=== PATIENT | male | born 1930 | race Caucasian/White ===

== ENCOUNTER 2018-08-13 12:44 | Inpatient (IN) | payer MEDICARE ==
[2018-08-13] MEDS ORDERED: ACETAMINOPHEN 325 MG TABLET PO ONE (13:04)
--- NOTE | 2018-08-13 13:23 | ER Document Report ---
ED Fall - General Chief Complaint: Fall Injury Stated Complaint: HIP PAIN Time Seen by Provider: 08/13/18 13:08 Mode of Arrival: Medic Information source: Patient, Relative Notes: 87-year-old male brought to the emergency department by EMS status post fall. Patient son accompanies him. Patient lives at home by himself. Home health visits a few times per week. The son goes over on the remaining days. He says that he went to check on his dad this morning and found him laying on his back in the bathroom. Patient states that he got out of bed and tripped and fell. He is moved himself on the ground while on his back into the bathroom. Patient was unable to lift himself up onto the toilet. He states that he was done on the ground for about an hour before his son came. He denies any head injury, loss of consciousness, neck pain. Patient states that he fell and landed on his elbows. He does have abrasions to his bilateral elbows. Patient complains of pain to the right hip. He is unable to flex or extend at the hip secondary to pain. Patient has full range of motion at the bilateral elbows. Patient son states that the patient has had issues with his balance for the last 2 years. His primary care physician has been aware of this and has worked him up. They initially thought that this was secondary to his peripheral neuropathy. Then they switched the patient's Lyrica to gabapentin thinking that maybe it was a drug side effect. Patient uses a walker to ambulate. Son states that he does not use it consistently. - HPI Occurred: This morning Where: Home Context: Lost balance Associated symptoms: Other - Right hip pain Location of injury/pain: Hip Quality of pain: Stabbing, Throbbing Severity: Moderate - Related data Allergies/Adverse Reactions: No Known Allergies Allergy (Unverified 08/13/18 13:06) Past Medical History - General Information source: Patient, Relative - Social History Smoking Status: Former Smoker Family History: Reviewed & Not Pertinent Review of Systems - Review of Systems Constitutional: No symptoms reported EENT: No symptoms reported Cardiovascular: No symptoms reported Respiratory: No symptoms reported Gastrointestinal: No symptoms reported Genitourinary: No symptoms reported Male Genitourinary: No symptoms reported Musculoskeletal: Joint pain Skin: Lesions Hematologic/Lymphatic: No symptoms reported Neurological/Psychological: No symptoms reported -: Yes All other systems reviewed and negative Physical Exam - Vital signs Vitals: Pulse Resp BP Pulse Ox 74 16 134/60 H 95 08/13/18 12:51 08/13/18 12:51 08/13/18 12:51 08/13/18 12:51 - Notes Notes: PHYSICAL EXAMINATION: GENERAL: Well-appearing, well-nourished and in no acute distress. HEAD: Atraumatic, normocephalic. EYES: Pupils equal round and reactive to light, extraocular movements intact, sclera anicteric, conjunctiva are normal. ENT: Nares patent, oropharynx clear without exudates. Moist mucous membranes. NECK: Normal range of motion, supple without lymphadenopathy. No cervical spine tenderness to palpation. LUNGS: Breath sounds clear to auscultation bilaterally and equal. No wheezes rales or rhonchi. HEART: Regular rate and rhythm without murmurs ABDOMEN: Soft, nontender, nondistended abdomen. No guarding, no rebound. No masses appreciated. Musculoskeletal: Normal range of motion, no pitting or edema. No cyanosis. Right hip tenderness to palpation. 2+ dorsalis pedis and posterior tibialis pulses. No knee, tib/fib tenderness to palpation. NEUROLOGICAL: Cranial nerves grossly intact. Normal speech, normal gait. Normal sensory, motor exams PSYCH: Normal mood, normal affect. SKIN: Warm, Dry, skin avulsion to bilateral elbows. Course - Re-evaluation Re-evalutation: 08/13/18 18:24 Patient has a right intertrochanteric fracture. Head and neck CT do not show an acute process. Labs obtained and are normal. EKG done and does not show any ST segment elevation. I contacted Dr. Ballard. He states that he will stay on the case as a consult. I spoke with the hospitalist who is agreeable with admitting the patient. - Vital Signs Vital signs: Temp Pulse Resp BP Pulse Ox 97.4 F 73 19 137/68 H 99 08/13/18 17:47 08/13/18 17:47 08/13/18 17:47 08/13/18 17:47 08/13/18 17:47 - Laboratory Result Diagrams: 08/13/18 13:59 08/13/18 13:59 Laboratory results interpreted by me: 08/13/18 08/13/18 13:59 13:59 RDW 16.2 H Plt Count 119 L Seg Neutrophils % 81.8 H Lymphocytes % 10.6 L Sodium 134.9 L Alkaline Phosphatase 167 H Albumin 3.4 L Discharge - Discharge Clinical Impression: Intertrochanteric fracture of right hip Condition: Stable Disposition: ADMITTED OBSERVATION Admitting Provider: Hospitalist Unit Admitted: Surgical Floor
--- NOTE | 2018-08-13 14:01 | RADIOLOGY REPORT (SQ) ---
EXAM DESCRIPTION: HIP RIGHT AP/LATERAL; FEMUR RIGHT COMPLETED DATE/TIME: 08/13/2018 1:50 pm REASON FOR STUDY: bed 2 hip pain s/p fall; tenderness to palpation COMPARISON: None. FINDINGS: Two views right hip: Includes AP pelvis and frog lateral right hip. INTERTROCHANTERIC MIL DLY COMMINUTED FRACTURE WITHOUT DISPLACEMENT OR ANGULATION. Osteopenic. No gross pelvic or left hip fracture. Two views right femur: Osteopenic. No other fracture identified. TECHNICAL DOCUMENTATION: JOB ID: [id number] Reading location - IP/workstation name: [email or web address]
--- NOTE | 2018-08-13 14:01 | RADIOLOGY REPORT (SQ) ---
EXAM DESCRIPTION: HIP RIGHT AP/LATERAL; FEMUR RIGHT COMPLETED DATE/TIME: 08/13/2018 1:50 pm REASON FOR STUDY: bed 2 hip pain s/p fall; tenderness to palpation COMPARISON: None. FINDINGS: Two views right hip: Includes AP pelvis and frog lateral right hip. INTERTROCHANTERIC MIL DLY COMMINUTED FRACTURE WITHOUT DISPLACEMENT OR ANGULATION. Osteopenic. No gross pelvic or left hip fracture. Two views right femur: Osteopenic. No other fracture identified. TECHNICAL DOCUMENTATION: JOB ID: [id number] Reading location - IP/workstation name: [email or web address]
[2018-08-13 14:18] LABS: ABSOLUTE LYMPHOCYTES (AUTO) 0.8 10^3/uL (0.5-4.7); ABSOLUTE MONOCYTES (AUTO) 0.5 10^3/uL (0.1-1.4); BASOPHILS % (AUTO) 0.4 % (0-2); EOSINOPHILS % (AUTO) 0.5 % (0-6); HEMATOCRIT 42.5 % (37.9-51.0); HEMOGLOBIN 14.4 g/dL (13.5-17.0); LYMPHOCYTES % (AUTO) 10.6 % (13-45); MEAN CORPUSCULAR HEMOGLOBIN 28.1 pg (27.0-33.4); MEAN CORPUSCULAR HGB CONC 33.8 g/dL (32.0-36.0); MEAN CORPUSCULAR VOLUME 83 fl (80-97); MONOCYTES % (AUTO) 6.7 % (3-13); PLATELET COUNT 119 10^3/uL (150-450); RED BLOOD COUNT 5.11 10^6/uL (4.35-5.55); RED CELL DISTRIBUTION WIDTH 16.2 % (11.5-14.0); SEGMENTED NEUTROPHILS % (AUTO) 81.8 % (42-78); TOTAL CELLS COUNTED % (AUTO) 100 %; WHITE BLOOD COUNT 7.4 10^3/uL (4.0-10.5)
[2018-08-13 14:31] LABS: ALANINE AMINOTRANSFERASE 38 U/L (21-72); ALBUMIN 3.4 g/dL (3.5-5.0); ALKALINE PHOSPHATASE 167 U/L (38-126); ANION GAP 5 (5-19); ASPARTATE AMINO TRANSFERASE 46 U/L (17-59); BILIRUBIN,DIRECT 0.4 mg/dL (0.0-0.4); BILIRUBIN,TOTAL 1.3 mg/dL (0.2-1.3); BLOOD UREA NITROGEN 13 mg/dL (7-20); CALCIUM 9.1 mg/dL (8.4-10.2); CARBON DIOXIDE 29 mmol/L (22-30); CHLORIDE 101 mmol/L (98-107); GLUCOSE 110 mg/dL (75-110); POTASSIUM 4.4 mmol/L (3.6-5.0); SODIUM 134.9 mmol/L (137-145); TOTAL PROTEIN 6.3 g/dL (6.3-8.2)
--- NOTE | 2018-08-13 14:43 | RADIOLOGY REPORT (SQ) ---
EXAM DESCRIPTION: CT HEAD WITHOUT; CT CERVICAL SPINE WITHOUT COMPLETED DATE/TIME: 08/13/2018 2:27 pm REASON FOR STUDY: fall COMPARISON: None. TECHNIQUE: Axial images acquired through the brain and cervical spine without intravenous contrast. Images reviewed with brain, subdural, lung, soft tissue and bone windows. Reconstructed coronal and sagittal MPR images reviewed. Images stored on PACS. All CT scanners at this facility use dose modulation, iterative reconstruction, and/or weight based d osing when appropriate to reduce radiation dose to as low as reasonably achievable (ALARA). [facility]: Dose Right [facility]: CareDose [facility]: Dose Right [facility]: Teradose 4D [facility]: [employer] RADIATION DOSE: CT Rad equipment meets quality standard of care and radiation dose reduction techniq ues were employed. CTDIvol: 53.2 mGy. DLP: 1070 mGy-cm.; CT Rad equipment meets quality standard of c are and radiation dose reduction techniques were employed. CTDIvol: 22.5 mGy. DLP: 480 mGy-cm. mGy. LIMITATIONS: None. FINDINGS: Brain Atrophy and small vessel changes. No hemorrhage or mass or shift or hydrocephalus. Mild chronic ethmoid sinus disease. No fluid levels. Orbits intact. Cervical spine Normal alignment. Osteopenic. Multilevel spondylosis with disc and facet disease throughout. No fracture. No worrisome bone lesion. Intact soft tissues with no visualized apical pneumothorax. Bullous disease. IMPRESSION: 1. Chronic brain changes without acute abnormality. 2. Chronic cervical spine degenerat blair change. No fracture evident. TECHNICAL DOCUMENTATION: JOB ID: [id number] Quality ID # [id number]: Final reports with documentation of one or more dose reduction techniques (e.g., Au tomated exposure control, adjustment of the mA and/or kV according to patient size, use of iterative reconstruction technique) 2010 [employer]- All Rights Reserved Reading location - IP/workstation name: [email or web address]
--- NOTE | 2018-08-13 14:43 | RADIOLOGY REPORT (SQ) ---
EXAM DESCRIPTION: CT HEAD WITHOUT; CT CERVICAL SPINE WITHOUT COMPLETED DATE/TIME: 08/13/2018 2:27 pm REASON FOR STUDY: fall COMPARISON: None. TECHNIQUE: Axial images acquired through the brain and cervical spine without intravenous contrast. Images reviewed with brain, subdural, lung, soft tissue and bone windows. Reconstructed coronal and sagittal MPR images reviewed. Images stored on PACS. All CT scanners at this facility use dose modulation, iterative reconstruction, and/or weight based d osing when appropriate to reduce radiation dose to as low as reasonably achievable (ALARA). [facility]: Dose Right [facility]: CareDose [facility]: Dose Right [facility]: Teradose 4D [facility]: [employer] RADIATION DOSE: CT Rad equipment meets quality standard of care and radiation dose reduction techniq ues were employed. CTDIvol: 53.2 mGy. DLP: 1070 mGy-cm.; CT Rad equipment meets quality standard of c are and radiation dose reduction techniques were employed. CTDIvol: 22.5 mGy. DLP: 480 mGy-cm. mGy. LIMITATIONS: None. FINDINGS: Brain Atrophy and small vessel changes. No hemorrhage or mass or shift or hydrocephalus. Mild chronic ethmoid sinus disease. No fluid levels. Orbits intact. Cervical spine Normal alignment. Osteopenic. Multilevel spondylosis with disc and facet disease throughout. No fracture. No worrisome bone lesion. Intact soft tissues with no visualized apical pneumothorax. Bullous disease. IMPRESSION: 1. Chronic brain changes without acute abnormality. 2. Chronic cervical spine degenerat blair change. No fracture evident. TECHNICAL DOCUMENTATION: JOB ID: [id number] Quality ID # [id number]: Final reports with documentation of one or more dose reduction techniques (e.g., Au tomated exposure control, adjustment of the mA and/or kV according to patient size, use of iterative reconstruction technique) 2010 [employer]- All Rights Reserved Reading location - IP/workstation name: [email or web address]
[2018-08-13] MEDS ORDERED: ACETAMINOPHEN 325 MG TABLET PO PRN (17:52)
--- NOTE | 2018-08-13 17:52 | PDOC H&P ---
History of Present Illness Admission Date/PCP: 08/13/18 15:17 BETZAIDA DUARTE MD Patient complains of: Right hip pain History of Present Illness: ELMER VERA is a 87 year old male history of unsteady gait, who was found on the floor by the son. Patient had a fall and had right hip pain and unable to get up. He apparently has had unsteady gait for 2 years and has been workup by his primary care physician in [place]. There is concern whether this is secondary to peripheral neuropathy versus Lyrica, and his Lyrica was changed to gabapentin. Patient was brought to the ED where x-ray revealed a right hip fracture. CT of the head and neck were negative for acute process or fracture. Orthopedics Dr. Ballard was contacted and recommended admission to medicine and he will consult. Patient denies chest pain, no palpitations. No nausea or vomiting, denies dysuria or polyuria, no urinary frequency. Denies rectal bleeding. He is hard of hearing. 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 Social History Smoking Status: Former Smoker Family History Family History: Reviewed & Not Pertinent Parental Family History Reviewed: No Children Family History Reviewed: No Sibling(s) Family History Reviewed.: No Medication/Allergy Home Medications: Bupropion HCl [Bupropion Xl] 150 mg PO Q12 08/13/18 Finasteride [Proscar 5 mg Tablet] 5 mg PO DAILY 08/13/18 Fluticasone/Umeclidin/Vilanter [Trelegy 100-62.5-25 Mcg Ellipta 14 Dose/Dpi] 1 puff IH DAILY 08/13/18 Gabapentin [Neurontin 100 mg Capsule] 200 mg PO QAM 08/13/18 Gabapentin [Neurontin 100 mg Capsule] 300 mg PO QHS 08/13/18 Pregabalin [Lyrica] 200 mg PO Q12 08/13/18 Allergies/Adverse Reactions: No Known Allergies Allergy (Unverified 08/13/18 13:06) Review of Systems Review of Systems: CONSTITUTIONAL : Fever, chills -- No; unexpalined fatigue -- No EENT: Denies eye, ear, throat, or mouth pain or symptoms. Denies nasal or sinus congestion or discharge. Denies throat, tongue, or mouth swelling or dif ficulty swallowing. CARDIOVASCULAR: Denies chest pain. No racing heart RESPIRATORY: Denies cough, no shortness of breath, difficulty breathing. GASTROINTESTINAL: Denies abdominal pain or distention. Denies nausea, vomiting, or diarrhea. No rectal bleeding. GENITOURINARY: Urinary symptoms -- no. MUSCULOSKELETAL: No acute weakness SKIN: Denies rash, lesions or sores. HEMATOLOGIC : Denies easy bruising or bleeding. LYMPHATIC: Denies swollen, enlarged glands. NEUROLOGICAL: New weakness, headaches, slured speach - No PSYCHIATRIC: Changes anxiety or stress, depression, suicidal ideation, or homicidal ideation -- No ALL OTHER SYSTEMS REVIEWED AND NEGATIVE. Physical Exam Vital Signs: Temp Pulse Resp BP Pulse Ox 74 15 124/62 100 08/13/18 12:51 08/13/18 16:01 08/13/18 16:01 08/13/18 16:01 Intake & Output 08/12/18 08/13/18 08/14/18 06:59 06:59 06:59 Weight 84.368 kg GENERAL: Well-developed, elderly male, no acute distress HEENT: Normocephalic/atraumatic NECK supple, no JVD CARDIOVASCULAR: RRR, normal S1-S2 LUNGS: CTA bilaterally ABDOMEN: Soft, NT, NL bowel sounds EXTREMITIES: No edema, clubbing, cyanosis, tenderness right hip area, no external injury NEUROLOGICAL: Alert, oriented x 3, no apparent lateralizing weakness Results Laboratory Results: 08/13/18 13:59 08/13/18 13:59 08/13/18 08/13/18 13:59 13:59 WBC 7.4 RBC 5.11 Hgb 14.4 Hct 42.5 MCV 83 MCH 28.1 MCHC 33.8 RDW 16.2 H Plt Count 119 L Seg Neutrophils % 81.8 H Lymphocytes % 10.6 L Monocytes % 6.7 Eosinophils % 0.5 Basophils % 0.4 Absolute Neutrophils 6.0 Absolute Lymphocytes 0.8 Absolute Monocytes 0.5 Absolute Eosinophils 0.0 Absolute Basophils 0.0 Sodium 134.9 L Potassium 4.4 Chloride 101 Carbon Dioxide 29 Anion Gap 5 BUN 13 Creatinine 1.05 Est GFR ( Amer) > 60 Est GFR (Non-Af Amer) > 60 Glucose 110 Calcium 9.1 Total Bilirubin 1.3 AST 46 ALT 38 Alkaline Phosphatase 167 H Total Protein 6.3 Albumin 3.4 L 08/13/18 13:59 Troponin I < 0.012 Impressions: Head CT 08/13/18 13:22 IMPRESSION: 1. Chronic brain changes without acute abnormality. 2. Chronic cervical spine degenerative change. No fracture evident. Cervical Spine CT 08/13/18 13:23 IMPRESSION: 1. Chronic brain changes without acute abnormality. 2. Chronic cervical spine degenerative change. No fracture evident. Assessment & Plan - Diagnosis (1) Intertrochanteric fracture of right hip Qualifiers: Encounter type: initial encounter Fracture type: closed Fracture alignment: nondisplaced Qualified Code(s): S72.144A - Nondisplaced intertrochanteric fracture of right femur, initial encounter for closed fracture Is this a current diagnosis for this admission?: Yes (2) Fall Is this a current diagnosis for this admission?: Yes (3) Unsteady gait Is this a current diagnosis for this admission?: Yes - Inpatient Certification Based on my medical assessment, after consideration of the patient's comorbidities, presenting symptoms, or acuity I expect that the services needed warrant INPATIENT care.: Yes I certify that my determination is in accordance with my understanding of Medicare's requirements for reasonable and necessary INPATIENT services [42 CFR 412.3e].: Yes Medical Necessity: Need Close Monitoring Due to Risk of Patient Decompensation, Need for Pain Control - Plan Summary Plan Summary: Will admit patient to monitor on telemetry. His troponin is negative and no EKG changes. Also he has no chest pain. Surgical consult Dr. Ballard to evaluate patient. Pain management with Tylenol and for severe pain, morphine. Questionable etiology of patient's dizziness. Will need continued workup of this at this as outpatient. In the meanwhile, he will manage on telemetry. He would likely need physical therapy at discharge, especially if he undergoes surgery.
[2018-08-13] MEDS ORDERED: MORPHINE SULFATE 10 MG/ML INJ IV PRN (17:53)
[2018-08-13 19:16] LABS: APPEARANCE,URINE CLOUDY; BILIRUBIN,URINE NEGATIVE (NEGATIVE); COLOR,URINE YELLOW; GLUCOSE, URINE NEGATIVE (NEGATIVE); KETONES,URINE TRACE mg/dL (NEGATIVE); LEUKOCYTE ESTERASE,URINE MODERATE (NEGATIVE); NITRITE,URINE POSITIVE (NEGATIVE); PROTEIN,URINE 30 mg/dL (NEGATIVE); URINE SPECIFIC GRAVITY 1.015
--- NOTE | 2018-08-13 23:41 | EKG REPORT ---
SEVERITY:- OTHERWISE NORMAL ECG - SINUS RHYTHM BORDERLINE RIGHT AXIS DEVIATION : Confirmed by: Cielo Mukherjee 13-Aug-2018 23:40:50
[2018-08-14 05:03] LABS: ABSOLUTE EOSINOPHILS # (AUTO) 0.1 10^3/uL (0.0-0.6); ABSOLUTE LYMPHOCYTES (AUTO) 1.1 10^3/uL (0.5-4.7); ABSOLUTE MONOCYTES (AUTO) 0.6 10^3/uL (0.1-1.4); ABSOLUTE NEUT (AUTO) 6.5 10^3/uL (1.7-8.2); BASOPHILS % (AUTO) 0.3 % (0-2); EOSINOPHILS % (AUTO) 0.9 % (0-6); HEMOGLOBIN 14.3 g/dL (13.5-17.0); LYMPHOCYTES % (AUTO) 12.8 % (13-45); MEAN CORPUSCULAR HEMOGLOBIN 28.3 pg (27.0-33.4); MEAN CORPUSCULAR HGB CONC 34.1 g/dL (32.0-36.0); MEAN CORPUSCULAR VOLUME 83 fl (80-97); MONOCYTES % (AUTO) 7.4 % (3-13); PLATELET COUNT 112 10^3/uL (150-450); RED BLOOD COUNT 5.05 10^6/uL (4.35-5.55); RED CELL DISTRIBUTION WIDTH 15.9 % (11.5-14.0); SEGMENTED NEUTROPHILS % (AUTO) 78.6 % (42-78); TOTAL CELLS COUNTED % (AUTO) 100 %; WHITE BLOOD COUNT 8.3 10^3/uL (4.0-10.5)
[2018-08-14 05:32] LABS: ANION GAP 9 (5-19); BLOOD UREA NITROGEN 16 mg/dL (7-20); CARBON DIOXIDE 24 mmol/L (22-30); CHLORIDE 103 mmol/L (98-107); GLUCOSE 113 mg/dL (75-110); POTASSIUM 4.1 mmol/L (3.6-5.0); SODIUM 135.7 mmol/L (137-145)
--- NOTE | 2018-08-14 07:04 | PDOC CONSULTATION ---
Consultation Consult Date: 08/14/18 Consult reason:: Right hip fracture History of Present Illness Admission Date/PCP: 08/13/18 17:06 BETZAIDA DUARTE MD History of Present Illness: ELMER VERA is a 87 year old male 87-year-old white male limited community ambulator who fell and sustained a right hip injury. Is brought to the emergency room where a displaced right intertrochanteric femur fracture was identified. Patient is admitted to the hospital service and orthopedics was consulted for fracture management. 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 Office Smoking Status: Former Smoker Frequency of Alcohol Use: None Hx Recreational Drug Use: No Hx Prescription Drug Abuse: No Family History Family History: Reviewed & Not Pertinent Parental Family History Reviewed: No Children Family History Reviewed: No Sibling(s) Family History Reviewed.: No Medication/Allergy Home Medications: Bupropion HCl [Bupropion Xl] 150 mg PO Q12 08/13/18 Finasteride [Proscar 5 mg Tablet] 5 mg PO DAILY 08/13/18 Fluticasone/Umeclidin/Vilanter [Trelegy 100-62.5-25 Mcg Ellipta 14 Dose/Dpi] 1 puff IH DAILY 08/13/18 Gabapentin [Neurontin 100 mg Capsule] 200 mg PO QAM 08/13/18 Gabapentin [Neurontin 100 mg Capsule] 300 mg PO QHS 08/13/18 Pregabalin [Lyrica] 200 mg PO Q12 08/13/18 Allergies/Adverse Reactions: No Known Allergies Allergy (Unverified 08/13/18 13:06) Review of Systems All systems: as per [facility] Physical Exam Vital Signs: Temp Pulse Resp BP Pulse Ox 36.4 C 92 20 136/93 H 96 08/13/18 23:52 08/13/18 23:52 08/13/18 23:52 08/13/18 23:52 08/13/18 23:52 Intake & Output 08/13/18 08/14/18 08/15/18 06:59 06:59 06:59 Intake Total 946 Output Total 1400 Balance -454 Weight 86.6 kg Physical Exam: Moderately built middle-aged white male lying in a hospital bed. Patient appears significantly younger than stated age. He is notably hard of hearing. Patient is alert and appropriate and denies any significant past medical history. General appearance: PRESENT: no acute distress, mild distress Head exam: PRESENT: normocephalic Respiratory exam: PRESENT: unlabored Cardiovascular exam: PRESENT: irregular rhythm Pulses: PRESENT: +1 pedal pulses bilateral Vascular exam: PRESENT: normal capillary refill GI/Abdominal exam: PRESENT: soft Rectal exam: PRESENT: deferred Extremities exam: PRESENT: other - Right lower extremity externally rotated and elevated on a pillow. There is brisk capillary refill to the great toe. Neurological exam: PRESENT: alert, awake, oriented to person, oriented to place, oriented to time, oriented to situation. ABSENT: motor sensory deficit Psychiatric exam: PRESENT: appropriate affect, normal mood. ABSENT: homicidal ideation, suicidal ideation Skin exam: PRESENT: dry, intact, warm. ABSENT: cyanosis, rash Results Laboratory Results: 08/14/18 03:42 08/14/18 03:42 08/13/18 08/13/18 08/13/18 13:59 13:59 18:47 WBC 7.4 RBC 5.11 Hgb 14.4 Hct 42.5 MCV 83 MCH 28.1 MCHC 33.8 RDW 16.2 H Plt Count 119 L Seg Neutrophils % 81.8 H Lymphocytes % 10.6 L Monocytes % 6.7 Eosinophils % 0.5 Basophils % 0.4 Absolute Neutrophils 6.0 Absolute Lymphocytes 0.8 Absolute Monocytes 0.5 Absolute Eosinophils 0.0 Absolute Basophils 0.0 Sodium 134.9 L Potassium 4.4 Chloride 101 Carbon Dioxide 29 Anion Gap 5 BUN 13 Creatinine 1.05 Est GFR ( Amer) > 60 Est GFR (Non-Af Amer) > 60 Glucose 110 Calcium 9.1 Total Bilirubin 1.3 AST 46 ALT 38 Alkaline Phosphatase 167 H Total Protein 6.3 Albumin 3.4 L Urine Color YELLOW Urine Appearance CLOUDY Urine pH 8.0 Ur Specific [place] 1.015 Urine Protein 30 H Urine Glucose (UA) NEGATIVE Urine Ketones TRACE H Urine Blood SMALL H Urine Nitrite POSITIVE H Ur Leukocyte Esterase MODERATE H Urine WBC (Auto) 59 Urine RBC (Auto) 11 08/14/18 08/14/18 03:42 03:42 WBC 8.3 RBC 5.05 Hgb 14.3 Hct 42.0 MCV 83 MCH 28.3 MCHC 34.1 RDW 15.9 H Plt Count 112 L Seg Neutrophils % 78.6 H Lymphocytes % 12.8 L Monocytes % 7.4 Eosinophils % 0.9 Basophils % 0.3 Absolute Neutrophils 6.5 Absolute Lymphocytes 1.1 Absolute Monocytes 0.6 Absolute Eosinophils 0.1 Absolute Basophils 0.0 Sodium 135.7 L Potassium 4.1 Chloride 103 Carbon Dioxide 24 Anion Gap 9 BUN 16 Creatinine 1.08 Est GFR ( Amer) > 60 Est GFR (Non-Af Amer) > 60 Glucose 113 H Calcium 9.0 Total Bilirubin AST ALT Alkaline Phosphatase Total Protein Albumin Urine Color Urine Appearance Urine pH Ur Specific [place] Urine Protein Urine Glucose (UA) Urine Ketones Urine Blood Urine Nitrite Ur Leukocyte Esterase Urine WBC (Auto) Urine RBC (Auto) 08/13/18 13:59 Troponin I < 0.012 Impressions: Head CT 08/13/18 13:22 IMPRESSION: 1. Chronic brain changes without acute abnormality. 2. Chronic cervical spine degenerative change. No fracture evident. Cervical Spine CT 08/13/18 13:23 IMPRESSION: 1. Chronic brain changes without acute abnormality. 2. Chronic cervical spine degenerative change. No fracture evident. Status: Imported from PACS Assessment & Plan - Diagnosis (1) Intertrochanteric fracture of right hip Qualifiers: Encounter type: initial encounter Fracture type: closed Fracture alignment: nondisplaced Qualified Code(s): S72.144A - Nondisplaced intertrochanteric fracture of right femur, initial encounter for closed fracture Is this a current diagnosis for this admission?: Yes Plan: Plan will be to move forward with a open reduction internal fixation of her right hip fracture under choice anesthesia pending anesthesia clearance. - Time Time Spent: 50 to 70 Minutes Anticipated discharge: SNF Within: Other
[2018-08-14] MEDS ORDERED: RINGERS SOLUTION,LACTATED 1,000 ML IV PRN (07:27)
[2018-08-14] MEDS ORDERED: CEFAZOLIN SODIUM 2 GM in DEXTROSE 5%-WATER 100 ML IV PRN (07:28)
[2018-08-14] MEDS ORDERED: TRANEXAMIC ACID INJ/PF 1,000 MG/10 ML SDV IV PRN (07:29)
[2018-08-14] MEDS ORDERED: KETAMINE HCL INJ 500 MG/10 ML VIAL ONE (08:58)
[2018-08-14] MEDS ORDERED: FENTANYL CITRATE INJ/PF 100 MCG/2 ML AMPUL ONE (08:58)
[2018-08-14] MEDS ORDERED: PROPOFOL INJ 200 MG/20 ML VIAL IV ONE (08:59)
[2018-08-14] MEDS ORDERED: MIDAZOLAM 2 MG/2 ML INJ ONE (08:59)
[2018-08-14] MEDS ORDERED: EPHEDRINE SULFATE INJ 50 MG/1 ML AMPULE ONE (08:59)
[2018-08-14] MEDS ORDERED: BUPIVACAINE HCL/DEX-WATER/PF 15 MG/2 ML AMPULE ONE (09:00)
[2018-08-14] MEDS ORDERED: CEFAZOLIN INJ 1 GM VIAL ONE (09:27)
[2018-08-14] MEDS ORDERED: ONDANSETRON HCL INJ/PF 4 MG/2 ML SDV IV PRN (10:08)
[2018-08-14] MEDS ORDERED: PROMETHAZINE HCL INJ 25 MG/1 ML VIAL IV PRN (10:08)
[2018-08-14] MEDS ORDERED: FENTANYL CITRATE INJ/PF 100 MCG/2 ML AMPUL IV PRN ×2 (10:08)
[2018-08-14] MEDS ORDERED: DIPHENHYDRAMINE HCL 50 MG/ML VIAL IV PRN (10:08)
[2018-08-14] MEDS ORDERED: TRANEXAMIC ACID INJ/PF 1,000 MG/10 ML SDV IV ONE (10:08)
--- NOTE | 2018-08-14 10:13 | Operative Report ---
Operative Report DATE OF SURGERY: 08/14/18 PREOPERATIVE DIAGNOSIS: Right intertrochanteric femur fracture OPERATION: Open reduction internal fixation right intratrochanteric femur fracture SURGEON: DARLEEN WALKER ANESTHESIA: Spinal ESTIMATED BLOOD LOSS: 100 PROCEDURE: With the patient supine on the fracture table the right hindquarter was prepped and draped in a sterile fashion. Under fluoroscopic guidance a pin is placed percutaneously through the greater trochanter down into the proximal femoral metadiaphysis. A combined reamers and a fashion and a cortical opening. This equipment is removed. A ball-tipped guide rods placed down the femur to the supra patellar region. Femoral length is measured to be 420 mm. Subsequently [employer] gamma 3 femoral nail 11 mm x 125 degrees x 420 mm is advanced over the ball-tipped guide samson. Depth is appropriate for proximal interlock. Subsequently 105 mm proximal interlock is placed. Under fluoroscopic guidance a distal 57.5 mm interlock is placed freehand. The construct and fracture reduction assessed fluoroscopically and felt to be adequate. The wounds irrigated with bulb lavage and closure is interrupted Vicryl followed by aris. A sterile compressive dressing is applied and patient's return to PACU in satisfactory condition.
[2018-08-14] MEDS ORDERED: ONDANSETRON 4 MG TAB.RAPDIS SL PRN (10:31)
[2018-08-14] MEDS ORDERED: MORPHINE SULFATE 10 MG/ML INJ IV PRN (10:55)
--- NOTE | 2018-08-14 11:29 | RADIOLOGY REPORT (SQ) ---
EXAM DESCRIPTION: NO CHG FLUORO; HIP IN OPERATING RM COMPLETED DATE/TIME: 08/14/2018 11:14 am REASON FOR STUDY: ORIF RT HIP IN OR COMPARISON: None. FLUOROSCOPY TIME: 0.6 minutes 6 Images saved to PACS LIMITATIONS: None. PROCEDURE: ORIF right hip fracture. FINDINGS: Images obtained from fluoro document placement of a long medullary samson in the right femur with a cannulated screw extending through the femoral neck. IMPRESSION: ORIF right hip fracture. Refer to operative note for further information. COMMENT: PQRS 6045F: Fluoroscopy time of the procedure is documented in the report. TECHNICAL DOCUMENTATION: JOB ID: [id number] [employer]- All Rights Reserved Reading location - IP/workstation name: [email or web address]
--- NOTE | 2018-08-14 11:29 | RADIOLOGY REPORT (SQ) ---
EXAM DESCRIPTION: NO CHG FLUORO; HIP IN OPERATING RM COMPLETED DATE/TIME: 08/14/2018 11:14 am REASON FOR STUDY: ORIF RT HIP IN OR COMPARISON: None. FLUOROSCOPY TIME: 0.6 minutes 6 Images saved to PACS LIMITATIONS: None. PROCEDURE: ORIF right hip fracture. FINDINGS: Images obtained from fluoro document placement of a long medullary samson in the right femur with a cannulated screw extending through the femoral neck. IMPRESSION: ORIF right hip fracture. Refer to operative note for further information. COMMENT: PQRS 6045F: Fluoroscopy time of the procedure is documented in the report. TECHNICAL DOCUMENTATION: JOB ID: [id number] [employer]- All Rights Reserved Reading location - IP/workstation name: [email or web address]
[2018-08-14] MEDS ORDERED: LIDOCAINE 2% INJ-PF (20 MG/ML) 2 ML AMPUL ONE (14:15)
[2018-08-14] MEDS ORDERED: PHENYLEPHRINE HCL INJ/PF 10 MG/1 ML SDV ONE (14:15)
--- NOTE | 2018-08-14 17:08 | PDOC PROGRESS REPORT ---
Subjective Progress Note for:: 08/14/18 Subjective:: Awake, no complaint. Status post Open reduction internal fixation right intratrochanteric femur fracture by Dr. Ballard today. Denies chest pain or shortness of breath or palpitations, no fever or chills. Reason For Visit: RIGHT HIP FRACTURE Physical Exam Vital Signs: Temp Pulse Resp BP Pulse Ox 98.5 F 104 H 19 134/68 H 97 08/14/18 16:41 08/14/18 16:41 08/14/18 16:41 08/14/18 16:41 08/14/18 16:41 Intake & Output 08/13/18 08/14/18 08/15/18 06:59 06:59 06:59 Intake Total 946 1500 Output Total 1400 50 Balance -454 1450 Weight 86.6 kg GENERAL: Well-developed, elderly male, no acute distress HEENT: Normocephalic/atraumatic NECK supple, no JVD CARDIOVASCULAR: RRR, normal S1-S2 LUNGS: CTA bilaterally ABDOMEN: Soft, NT, NL bowel sounds EXTREMITIES: No edema, clubbing, cyanosis, tenderness, right hip/extremities surgical site clean/dry/intact NEUROLOGICAL: Alert, oriented x 3, no apparent lateralizing weakness Results Laboratory Results: 08/14/18 03:42 08/14/18 03:42 08/13/18 08/14/18 08/14/18 18:47 03:42 03:42 WBC 8.3 RBC 5.05 Hgb 14.3 Hct 42.0 MCV 83 MCH 28.3 MCHC 34.1 RDW 15.9 H Plt Count 112 L Seg Neutrophils % 78.6 H Lymphocytes % 12.8 L Monocytes % 7.4 Eosinophils % 0.9 Basophils % 0.3 Absolute Neutrophils 6.5 Absolute Lymphocytes 1.1 Absolute Monocytes 0.6 Absolute Eosinophils 0.1 Absolute Basophils 0.0 Sodium 135.7 L Potassium 4.1 Chloride 103 Carbon Dioxide 24 Anion Gap 9 BUN 16 Creatinine 1.08 Est GFR ( Amer) > 60 Est GFR (Non-Af Amer) > 60 Glucose 113 H Calcium 9.0 Urine Color YELLOW Urine Appearance CLOUDY Urine pH 8.0 Ur Specific [place] 1.015 Urine Protein 30 H Urine Glucose (UA) NEGATIVE Urine Ketones TRACE H Urine Blood SMALL H Urine Nitrite POSITIVE H Ur Leukocyte Esterase MODERATE H Urine WBC (Auto) 59 Urine RBC (Auto) 11 08/13/18 13:59 Troponin I < 0.012 Impressions: Head CT 08/13/18 13:22 IMPRESSION: 1. Chronic brain changes without acute abnormality. 2. Chronic cervical spine degenerative change. No fracture evident. Cervical Spine CT 08/13/18 13:23 IMPRESSION: 1. Chronic brain changes without acute abnormality. 2. Chronic cervical spine degenerative change. No fracture evident. Fluoroscopy 08/14/18 00:00 IMPRESSION: ORIF right hip fracture. Refer to operative note for further information. Hip X-Ray 08/14/18 00:00 IMPRESSION: ORIF right hip fracture. Refer to operative note for further information. Assessment & Plan - Diagnosis (1) Intertrochanteric fracture of right hip Qualifiers: Encounter type: initial encounter Fracture type: closed Fracture alignment: nondisplaced Qualified Code(s): S72.144A - Nondisplaced intertrochanteric fracture of right femur, initial encounter for closed fracture Is this a current diagnosis for this admission?: Yes (2) Fall Is this a current diagnosis for this admission?: Yes (3) Unsteady gait Is this a current diagnosis for this admission?: Yes - Plan Summary Plan Summary: Continue pain management. PT/OT. Continue orthopedist follow-up. Patient likely will need short-term placement for rehab. Follow-up CBC and Chem-7 in a.m.
[2018-08-14] MEDS ORDERED: METOPROLOL TARTRATE PF/INJ 5 MG/5 ML SDV IV ONE ×2 (18:20→18:23)
[2018-08-14 18:39] LABS: ABSOLUTE BASOPHILS # (AUTO) 0.1 10^3/uL (0.0-0.2); ABSOLUTE EOSINOPHILS # (AUTO) 0.1 10^3/uL (0.0-0.6); ABSOLUTE LYMPHOCYTES (AUTO) 1.5 10^3/uL (0.5-4.7); ABSOLUTE MONOCYTES (AUTO) 0.9 10^3/uL (0.1-1.4); ABSOLUTE NEUT (AUTO) 9.4 10^3/uL (1.7-8.2); BASOPHILS % (AUTO) 0.7 % (0-2); EOSINOPHILS % (AUTO) 0.5 % (0-6); HEMOGLOBIN 13.3 g/dL (13.5-17.0); LYMPHOCYTES % (AUTO) 12.5 % (13-45); MEAN CORPUSCULAR HEMOGLOBIN 27.8 pg (27.0-33.4); MEAN CORPUSCULAR HGB CONC 34.1 g/dL (32.0-36.0); MEAN CORPUSCULAR VOLUME 82 fl (80-97); MONOCYTES % (AUTO) 7.2 % (3-13); PLATELET COUNT 112 10^3/uL (150-450); RED BLOOD COUNT 4.79 10^6/uL (4.35-5.55); RED CELL DISTRIBUTION WIDTH 16.1 % (11.5-14.0); SEGMENTED NEUTROPHILS % (AUTO) 79.1 % (42-78); TOTAL CELLS COUNTED % (AUTO) 100 %; WHITE BLOOD COUNT 11.9 10^3/uL (4.0-10.5)
[2018-08-14] MEDS ORDERED: NORMAL SALINE 500 ML IV ONE (18:45)
[2018-08-14 18:54] LABS: ANION GAP 8 (5-19); BLOOD UREA NITROGEN 17 mg/dL (7-20); CALCIUM 8.6 mg/dL (8.4-10.2); CARBON DIOXIDE 22 mmol/L (22-30); CHLORIDE 103 mmol/L (98-107); GLUCOSE 119 mg/dL (75-110); POTASSIUM 4.2 mmol/L (3.6-5.0); SODIUM 132.8 mmol/L (137-145)
[2018-08-14] MEDS: CEFAZOLIN SODIUM 2 GM in DEXTROSE 5%-WATER 100 ML IV SCH (20:54)
[2018-08-14] MEDS: RINGERS SOLUTION,LACTATED 1,000 ML IV PRN (21:41)
--- NOTE | 2018-08-14 23:34 | EKG REPORT ---
SEVERITY:- ABNORMAL ECG - SUPRAVENTRICULAR TACHYCARDIA REPOLARIZATION ABNORMALITY, PROB RATE RELATED : Confirmed by: Nadine Braden MD 14-Aug-2018 23:33:48
[2018-08-15] MEDS: CEFAZOLIN SODIUM 2 GM in DEXTROSE 5%-WATER 100 ML IV SCH ×3 (02:40→17:36)
[2018-08-15] MEDS: RINGERS SOLUTION,LACTATED 1,000 ML IV PRN ×2 (05:42→20:25)
[2018-08-15 05:58] LABS: HEMATOCRIT 35.7 % (37.9-51.0); HEMOGLOBIN 12.3 g/dL (13.5-17.0); MEAN CORPUSCULAR HEMOGLOBIN 28.6 pg (27.0-33.4); MEAN CORPUSCULAR HGB CONC 34.6 g/dL (32.0-36.0); MEAN CORPUSCULAR VOLUME 83 fl (80-97); RED BLOOD COUNT 4.31 10^6/uL (4.35-5.55); WHITE BLOOD COUNT 7.9 10^3/uL (4.0-10.5)
[2018-08-15 06:16] LABS: ANION GAP 5 (5-19); BLOOD UREA NITROGEN 20 mg/dL (7-20); CALCIUM 8.5 mg/dL (8.4-10.2); CARBON DIOXIDE 28 mmol/L (22-30); CHLORIDE 103 mmol/L (98-107); GLUCOSE 110 mg/dL (75-110); POTASSIUM 4.2 mmol/L (3.6-5.0); SODIUM 136.1 mmol/L (137-145)
[2018-08-15 06:41] LABS: PLATELET COUNT 96 10^3/uL (150-450)
[2018-08-15] MEDS: TRAMADOL HCL 50 MG TABLET PO PRN (08:12)
--- NOTE | 2018-08-15 08:51 | PDOC PROGRESS REPORT ---
Subjective Progress Note for:: 08/15/18 Subjective:: Patient lying in bed comfortably. No issues overnight. Does complain of hip pain however tolerable. Denies chest pain or shortness of breath. Reason For Visit: RIGHT HIP FRACTURE Physical Exam Vital Signs: Temp Pulse Resp BP Pulse Ox 97.6 F 82 19 115/55 L 98 08/15/18 04:00 08/15/18 07:00 08/15/18 04:00 08/15/18 04:00 08/15/18 04:00 Intake & Output 08/14/18 08/15/18 08/16/18 06:59 06:59 06:59 Intake Total 946 3466 Output Total 1400 950 Balance -454 2516 Weight 86.6 kg 86.8 kg Musculoskeletal exam: PRESENT: other - Right hip: Dressing clean/dry/intact no erythema or drainage. Moderate thigh swelling without change, intact plantarflexion/dorsiflexion. No sensory deficits. No calf tenderness. Results Laboratory Results: 08/15/18 04:31 08/15/18 04:31 08/14/18 08/14/18 08/15/18 18:30 18:30 04:31 WBC 11.9 H 7.9 RBC 4.79 4.31 L Hgb 13.3 L 12.3 L Hct 39.0 35.7 L MCV 82 83 MCH 27.8 28.6 MCHC 34.1 34.6 RDW 16.1 H 16.0 H Plt Count 112 L 96 L Seg Neutrophils % 79.1 H Lymphocytes % 12.5 L Monocytes % 7.2 Eosinophils % 0.5 Basophils % 0.7 Absolute Neutrophils 9.4 H Absolute Lymphocytes 1.5 Absolute Monocytes 0.9 Absolute Eosinophils 0.1 Absolute Basophils 0.1 Sodium 132.8 L Potassium 4.2 Chloride 103 Carbon Dioxide 22 Anion Gap 8 BUN 17 Creatinine 1.07 Est GFR ( Amer) > 60 Est GFR (Non-Af Amer) > 60 Glucose 119 H Calcium 8.6 Magnesium 1.9 08/15/18 04:31 WBC RBC Hgb Hct MCV MCH MCHC RDW Plt Count Seg Neutrophils % Lymphocytes % Monocytes % Eosinophils % Basophils % Absolute Neutrophils Absolute Lymphocytes Absolute Monocytes Absolute Eosinophils Absolute Basophils Sodium 136.1 L Potassium 4.2 Chloride 103 Carbon Dioxide 28 Anion Gap 5 BUN 20 Creatinine 1.05 Est GFR ( Amer) > 60 Est GFR (Non-Af Amer) > 60 Glucose 110 Calcium 8.5 Magnesium 08/13/18 08/14/18 13:59 18:30 Troponin I < 0.012 < 0.012 Impressions: Head CT 08/13/18 13:22 IMPRESSION: 1. Chronic brain changes without acute abnormality. 2. Chronic cervical spine degenerative change. No fracture evident. Cervical Spine CT 08/13/18 13:23 IMPRESSION: 1. Chronic brain changes without acute abnormality. 2. Chronic cervical spine degenerative change. No fracture evident. Fluoroscopy 08/14/18 00:00 IMPRESSION: ORIF right hip fracture. Refer to operative note for further information. Hip X-Ray 08/14/18 00:00 IMPRESSION: ORIF right hip fracture. Refer to operative note for further information. Assessment & Plan - Diagnosis (1) Intertrochanteric fracture of right hip Qualifiers: Encounter type: initial encounter Fracture type: closed Fracture alignment: nondisplaced Qualified Code(s): S72.144A - Nondisplaced intertrochanteric fracture of right femur, initial encounter for closed fracture Is this a current diagnosis for this admission?: Yes Plan: Postop day #1 status post cephalo-medullary nail right intertrochanteric fracture 1. Pain control 2. Aspirin for DVT prophylaxis 3. Weightbearing as tolerated right lower extremity with physical therapy 4. Discharge planning patient will [facility].
[2018-08-15] MEDS: ASPIRIN 81 MG TABLET, ENT COATED PO SCH (10:04)
[2018-08-15] MEDS ORDERED: OXYCODONE HCL IR 5 MG TABLET PO PRN (13:11)
[2018-08-15] MEDS: BUPROPION HCL 100 MG TABLET PO SCH ×2 (14:33→22:20)
[2018-08-15] MEDS ORDERED: IPRATROPIUM/ALBUTEROL 0.5-2.5 MG/3 ML AMPUL NEB PRN (16:23)
--- NOTE | 2018-08-15 16:26 | PDOC PROGRESS REPORT ---
Subjective Progress Note for:: 08/15/18 Subjective:: The patient is an 87-year-old male with a past medical history of COPD, depression, and an unsteady gait who was admitted 08/13/2018 for a right hip fracture now cephalo-medullary nail right hip fracture by Dr. Ballard. Patient was seen on morning rounds. He is found resting in bed comfortably on supplemental oxygen via nasal cannula at 2 L/min (no home O2 dependent). Patient reports that his pain is well controlled at present; per nursing, he has actually had a difficult time obtaining pain control limiting his ability to participate with physical therapy. Patient denies fever, chills, chest pain, palpitations, dyspnea, abdominal pain, nausea vomiting diarrhea. He has no questions or concerns at this time. No other concerns per nursing. Reason For Visit: RIGHT HIP FRACTURE Physical Exam Vital Signs: Temp Pulse Resp BP Pulse Ox 97.9 F 85 24 H 117/55 L 97 08/15/18 12:31 08/15/18 13:49 08/15/18 12:31 08/15/18 12:31 08/15/18 12:31 Intake & Output 08/14/18 08/15/18 08/16/18 06:59 06:59 06:59 Intake Total 946 3466 100 Output Total 1400 950 Balance -454 2516 100 Weight 86.6 kg 86.8 kg General appearance: PRESENT: no acute distress, cooperative, hard of hearing, well-developed, well-nourished Head exam: PRESENT: atraumatic, normocephalic Eye exam: PRESENT: conjunctiva pink, EOMI, PERRLA. ABSENT: scleral icterus Ear exam: PRESENT: normal external ear exam Mouth exam: PRESENT: moist, tongue midline Neck exam: ABSENT: carotid bruit, JVD, lymphadenopathy, thyromegaly Respiratory exam: PRESENT: clear to auscultation josy, symmetrical, unlabored. ABSENT: rales, rhonchi, wheezes Cardiovascular exam: PRESENT: RRR, +S1, +S2. ABSENT: diastolic murmur, rubs, systolic murmur Pulses: PRESENT: normal dorsalis pedis pul Vascular exam: PRESENT: normal capillary refill GI/Abdominal exam: PRESENT: normal bowel sounds, soft. ABSENT: distended, guarding, mass, organolmegaly, rebound, tenderness Rectal exam: PRESENT: deferred Extremities exam: PRESENT: tenderness - RLE. ABSENT: calf tenderness, clubbing, pedal edema Neurological exam: PRESENT: alert, awake, oriented to person, oriented to place, oriented to time, oriented to situation, CN II-XII grossly intact, other - Fatigued; forgetful. ABSENT: motor sensory deficit Psychiatric exam: PRESENT: appropriate affect, normal mood. ABSENT: homicidal ideation, suicidal ideation Skin exam: PRESENT: dry, warm, other - Rt hip surgicalincision with clean dry dressing. ABSENT: cyanosis, rash Results Laboratory Results: 08/15/18 04:31 08/15/18 04:31 08/14/18 08/14/18 08/15/18 18:30 18:30 04:31 WBC 11.9 H 7.9 RBC 4.79 4.31 L Hgb 13.3 L 12.3 L Hct 39.0 35.7 L MCV 82 83 MCH 27.8 28.6 MCHC 34.1 34.6 RDW 16.1 H 16.0 H Plt Count 112 L 96 L Seg Neutrophils % 79.1 H Lymphocytes % 12.5 L Monocytes % 7.2 Eosinophils % 0.5 Basophils % 0.7 Absolute Neutrophils 9.4 H Absolute Lymphocytes 1.5 Absolute Monocytes 0.9 Absolute Eosinophils 0.1 Absolute Basophils 0.1 Sodium 132.8 L Potassium 4.2 Chloride 103 Carbon Dioxide 22 Anion Gap 8 BUN 17 Creatinine 1.07 Est GFR ( Amer) > 60 Est GFR (Non-Af Amer) > 60 Glucose 119 H Calcium 8.6 Magnesium 1.9 08/15/18 04:31 WBC RBC Hgb Hct MCV MCH MCHC RDW Plt Count Seg Neutrophils % Lymphocytes % Monocytes % Eosinophils % Basophils % Absolute Neutrophils Absolute Lymphocytes Absolute Monocytes Absolute Eosinophils Absolute Basophils Sodium 136.1 L Potassium 4.2 Chloride 103 Carbon Dioxide 28 Anion Gap 5 BUN 20 Creatinine 1.05 Est GFR ( Amer) > 60 Est GFR (Non-Af Amer) > 60 Glucose 110 Calcium 8.5 Magnesium 08/13/18 08/14/18 13:59 18:30 Troponin I < 0.012 < 0.012 Impressions: Head CT 08/13/18 13:22 IMPRESSION: 1. Chronic brain changes without acute abnormality. 2. Chronic cervical spine degenerative change. No fracture evident. Cervical Spine CT 08/13/18 13:23 IMPRESSION: 1. Chronic brain changes without acute abnormality. 2. Chronic cervical spine degenerative change. No fracture evident. Fluoroscopy 08/14/18 00:00 IMPRESSION: ORIF right hip fracture. Refer to operative note for further information. Hip X-Ray 08/14/18 00:00 IMPRESSION: ORIF right hip fracture. Refer to operative note for further information. Assessment & Plan - Diagnosis (1) Intertrochanteric fracture of right hip Qualifiers: Encounter type: initial encounter Fracture type: closed Fracture alignment: nondisplaced Qualified Code(s): S72.144A - Nondisplaced intertrochanteric fracture of right femur, initial encounter for closed fracture Is this a current diagnosis for this admission?: Yes Plan: Postop day #1 cephalo-medullary nail right hip fracture by Dr. Ballard. DVT prophylaxis per orthopedics. Physical therapy and discharge planning consultations have been requested; patient will require SNF for short-term rehabilitation at discharge. (2) COPD (chronic obstructive pulmonary disease) Is this a current diagnosis for this admission?: Yes Plan: Stable and without exacerbation at this time; patient denies dyspnea, wheezing, cough. Lung sounds are clear. Continue supplemental oxygen as needed to maintain oxygen saturations greater than 89%. As needed nebulizer treatments. Continue home dose Trelegy. Incentive spirometer to bedside. (3) Depression Is this a current diagnosis for this admission?: Yes Plan: Continue the patient's home dose Wellbutrin. (4) Neuropathy Is this a current diagnosis for this admission?: Yes Plan: Resume the patient's home dose of gabapentin. (5) Fall Is this a current diagnosis for this admission?: Yes Plan: Physical therapy consultation is ordered. Discharge planning is consulted. Anticipate SNF for short-term rehabilitation on discharge. (6) Unsteady gait Is this a current diagnosis for this admission?: Yes Plan: Chronic; patient's primary care provider recently discontinued Lyrica and transition to gabapentin for treatment of neuropathy. Physical therapy is consulted. - Time Time Spent with patient: 15-24 minutes Medications reviewed and adjusted accordingly: Yes Anticipated discharge: SNF Within: within 72 hours - Once cleared by Ortho.
[2018-08-15] MEDS ORDERED: (PENDING PHARMACY ID) (Bupropion Hcl [Bupropion Xl] 150 MG) PO SCH (22:00)
[2018-08-15] MEDS ORDERED: PREGABALIN 100 MG CAPSULE PO SCH (22:00)
[2018-08-15] MEDS ORDERED: (PENDING PHARMACY ID) (Pregabalin [Lyrica] 200 MG) PO SCH (22:00)
[2018-08-15] MEDS: GABAPENTIN 100 MG CAPSULE PO SCH (22:21)
[2018-08-16] MEDS: RINGERS SOLUTION,LACTATED 1,000 ML IV PRN (02:12)
[2018-08-16] MEDS: CEFAZOLIN SODIUM 2 GM in DEXTROSE 5%-WATER 100 ML IV SCH ×2 (02:12→09:50)
[2018-08-16] MEDS: TRAMADOL HCL 50 MG TABLET PO PRN (05:11)
[2018-08-16] MEDS: BUPROPION HCL 100 MG TABLET PO SCH ×3 (05:14→22:53)
--- NOTE | 2018-08-16 07:14 | PDOC PROGRESS REPORT ---
Subjective Progress Note for:: 08/16/18 Reason For Visit: RIGHT HIP FRACTURE 87-year-old white male status post ORIF of a right intratrochanteric femur fracture 2 days ago. Patient notably hard of hearing but seems to be resting comfortably in bed. Physical Exam Vital Signs: Temp Pulse Resp BP Pulse Ox 36.8 C 92 22 H 108/62 93 08/16/18 03:40 08/16/18 03:40 08/16/18 03:40 08/16/18 03:40 08/16/18 03:40 Intake & Output 08/15/18 08/16/18 08/17/18 06:59 06:59 06:59 Intake Total 3466 2941 Output Total 950 2265 Balance 2516 676 Weight 86.8 kg 87.2 kg General appearance: PRESENT: no acute distress Respiratory exam: PRESENT: unlabored Cardiovascular exam: PRESENT: RRR Pulses: PRESENT: +1 pedal pulses bilateral Vascular exam: PRESENT: normal capillary refill Musculoskeletal exam: PRESENT: other - Right lower extremity dressings clean dry and intact. Leg lengths equal. Brisk capillary refill distally. Skin exam: PRESENT: dry, intact, warm. ABSENT: cyanosis, rash Results Laboratory Results: 08/15/18 04:31 08/15/18 04:31 08/13/18 08/14/18 13:59 18:30 Troponin I < 0.012 < 0.012 Impressions: Head CT 08/13/18 13:22 IMPRESSION: 1. Chronic brain changes without acute abnormality. 2. Chronic cervical spine degenerative change. No fracture evident. Cervical Spine CT 08/13/18 13:23 IMPRESSION: 1. Chronic brain changes without acute abnormality. 2. Chronic cervical spine degenerative change. No fracture evident. Fluoroscopy 08/14/18 00:00 IMPRESSION: ORIF right hip fracture. Refer to operative note for further information. Hip X-Ray 08/14/18 00:00 IMPRESSION: ORIF right hip fracture. Refer to operative note for further information. Status: Imported from PACS Assessment & Plan - Diagnosis (1) Intertrochanteric fracture of right hip Qualifiers: Encounter type: initial encounter Fracture type: closed Fracture alignment: nondisplaced Qualified Code(s): S72.144A - Nondisplaced intertrochanteric fracture of right femur, initial encounter for closed fracture Is this a current diagnosis for this admission?: Yes Plan: 87-year-old white male status post ORIF of a right intratrochanteric femur fr acture. Patient be mobilized with physical therapy and weightbearing as tolerated basis. Anticipate discharge to a [facility] facility when bed available.
[2018-08-16 08:03] LABS: HEMATOCRIT 33.9 % (37.9-51.0); HEMOGLOBIN 11.5 g/dL (13.5-17.0); MEAN CORPUSCULAR HEMOGLOBIN 28.2 pg (27.0-33.4); MEAN CORPUSCULAR HGB CONC 33.8 g/dL (32.0-36.0); MEAN CORPUSCULAR VOLUME 83 fl (80-97); RED BLOOD COUNT 4.07 10^6/uL (4.35-5.55); RED CELL DISTRIBUTION WIDTH 15.6 % (11.5-14.0); WHITE BLOOD COUNT 6.8 10^3/uL (4.0-10.5)
[2018-08-16 09:00] LABS: PLATELET COUNT 90 10^3/uL (150-450)
[2018-08-16] MEDS: ASPIRIN 81 MG TABLET, ENT COATED PO SCH (09:11)
[2018-08-16] MEDS: FLUTICASONE/UMECLIDIN/VILANTER 100-62.5-25 MCG/DOSE IH SCH (09:11)
[2018-08-16] MEDS: FINASTERIDE 5 MG TABLET PO SCH (09:11)
[2018-08-16] MEDS: GABAPENTIN 100 MG CAPSULE PO SCH ×2 (09:11→22:53)
--- NOTE | 2018-08-16 16:41 | PDOC PROGRESS REPORT ---
Subjective Progress Note for:: 08/16/18 Subjective:: The patient is an 87-year-old male with a past medical history of COPD, depression, and an unsteady gait who was admitted 08/13/2018 for a right hip fracture now cephalo-medullary nail right hip fracture by Dr. Ballard. Patient was seen on morning rounds. He is found resting in bed comfortably on supplemental oxygen via nasal cannula at 2 L/min (not home O2 dependent). Patient reports that his pain is well controlled at present; per nursing he has had improved pain control and was able to better participate with physical therapy today. Patient denies fever, chills, chest pain, palpitations, dyspnea, abdominal pain, nausea, vomiting, and diarrhea. He has no other questions or concerns at this time. No concerns per nursing. Reason For Visit: RIGHT HIP FRACTURE Physical Exam Vital Signs: Temp Pulse Resp BP Pulse Ox 97.7 F 93 17 112/51 L 91 L 08/16/18 15:18 08/16/18 15:18 08/16/18 15:18 08/16/18 15:18 08/16/18 15:18 Intake & Output 08/15/18 08/16/18 08/17/18 06:59 06:59 06:59 Intake Total 3466 2941 1100 Output Total 950 2265 Balance 2516 676 1100 Weight 86.8 kg 87.2 kg General appearance: PRESENT: no acute distress, cooperative, hard of hearing - Very [place], well-developed, well-nourished Head exam: PRESENT: atraumatic, normocephalic Eye exam: PRESENT: conjunctiva pink, EOMI, PERRLA. ABSENT: scleral icterus Ear exam: PRESENT: normal external ear exam Mouth exam: PRESENT: moist, tongue midline Neck exam: ABSENT: carotid bruit, JVD, lymphadenopathy, thyromegaly Respiratory exam: PRESENT: clear to auscultation josy, symmetrical, unlabored. ABSENT: rales, rhonchi, wheezes Cardiovascular exam: PRESENT: RRR, +S1, +S2. ABSENT: diastolic murmur, rubs, systolic murmur Pulses: PRESENT: normal dorsalis pedis pul Vascular exam: PRESENT: normal capillary refill GI/Abdominal exam: PRESENT: normal bowel sounds, soft. ABSENT: distended, gua rding, mass, organolmegaly, rebound, tenderness Rectal exam: PRESENT: deferred Extremities exam: PRESENT: tenderness - RLE. ABSENT: calf tenderness, clubbing, pedal edema Neurological exam: PRESENT: alert, awake, oriented to person, oriented to place, oriented to time, oriented to situation, CN II-XII grossly intact. ABSENT: motor sensory deficit Psychiatric exam: PRESENT: appropriate affect, normal mood. ABSENT: homicidal ideation, suicidal ideation Skin exam: PRESENT: dry, warm, other - Rt hip surgical incision with clean dry dressing. ABSENT: cyanosis, rash Results Laboratory Results: 08/16/18 07:24 08/15/18 04:31 08/16/18 07:24 WBC 6.8 RBC 4.07 L Hgb 11.5 L Hct 33.9 L MCV 83 MCH 28.2 MCHC 33.8 RDW 15.6 H Plt Count 90 L 08/13/18 08/14/18 13:59 18:30 Troponin I < 0.012 < 0.012 Impressions: Head CT 08/13/18 13:22 IMPRESSION: 1. Chronic brain changes without acute abnormality. 2. Chronic cervical spine degenerative change. No fracture evident. Cervical Spine CT 08/13/18 13:23 IMPRESSION: 1. Chronic brain changes without acute abnormality. 2. Chronic cervical spine degenerative change. No fracture evident. Fluoroscopy 08/14/18 00:00 IMPRESSION: ORIF right hip fracture. Refer to operative note for further information. Hip X-Ray 08/14/18 00:00 IMPRESSION: ORIF right hip fracture. Refer to operative note for further information. Assessment & Plan - Diagnosis (1) Intertrochanteric fracture of right hip Qualifiers: Encounter type: initial encounter Fracture type: closed Fracture a lignment: nondisplaced Qualified Code(s): S72.144A - Nondisplaced intertrochanteric fracture of right femur, initial encounter for closed fracture Is this a current diagnosis for this admission?: Yes Plan: Postop day #2 ORIF right hip fracture by Dr. Ballard. DVT prophylaxis per orthopedics. Continue daily Aspirin therapy. Physical therapy and discharge planning consultations have been requested; citlali ent will require SNF for short-term rehabilitation at discharge. (2) COPD (chronic obstructive pulmonary disease) Is this a current diagnosis for this admission?: Yes Plan: Stable and without exacerbation at this time; patient denies dyspnea, wheezing, cough. Lung sounds are clear. Continue supplemental oxygen as needed to maintain oxygen saturations greater than 89%. As needed nebulizer treatments. Continue home dose Trelegy. Incentive spirometer to bedside. (3) Depression Is this a current diagnosis for this admission?: Yes Plan: Continue the patient's home dose Wellbutrin. (4) Neuropathy Is this a current diagnosis for this admission?: Yes Plan: Resume the patient's home dose of gabapentin. (5) Fall Is this a current diagnosis for this admission?: Yes Plan: Physical therapy consultation is ordered. Discharge planning is consulted. Anticipate SNF for short-term rehabilitation on discharge. (6) Unsteady gait Is this a current diagnosis for this admission?: Yes Plan: Chronic; patient's primary care provider recently discontinued Lyrica and transition to gabapentin for treatment of neuropathy. Physical therapy is consulted. (7) UTI (urinary tract infection) Is this a current diagnosis for this admission?: Yes Plan: Patient with asymptomatic UTI per urinalysis on admission. He does have a chronic, indwelling, catheter. He remains afebrile with a normal WBC. Perioperative antibiotics per Orthopedics; Ancef, which would appropriately cover the most likely source of infection. Unfortunately, urine culture was not obtained. Recommend outpatient follow up with Urology within 2-4 weeks. - Time Time Spent with patient: 15-24 minutes Medications reviewed and adjusted accordingly: Yes Anticipated discharge: SNF Within: when bed available
[2018-08-17] MEDS: TRAMADOL HCL 50 MG TABLET PO PRN (05:24)
[2018-08-17] MEDS: BUPROPION HCL 100 MG TABLET PO SCH ×2 (05:24→13:17)
[2018-08-17 06:01] LABS: HEMATOCRIT 31.1 % (37.9-51.0); HEMOGLOBIN 10.7 g/dL (13.5-17.0); MEAN CORPUSCULAR HEMOGLOBIN 28.5 pg (27.0-33.4); MEAN CORPUSCULAR HGB CONC 34.5 g/dL (32.0-36.0); MEAN CORPUSCULAR VOLUME 83 fl (80-97); PLATELET COUNT 111 10^3/uL (150-450); RED BLOOD COUNT 3.76 10^6/uL (4.35-5.55)
--- NOTE | 2018-08-17 06:52 | PDOC PROGRESS REPORT ---
Subjective Progress Note for:: 08/17/18 Reason For Visit: RIGHT HIP FRACTURE 87-year-old white male now postop day 3 status post open reduction internal fixation of right intertrochanteric femur fracture. Patient with limited progress with physical therapy, tentative plan for transfer to a [facility] facility, and questionable episode of hypotension yesterday morning with a mean blood pressure of 67 torr. Physical Exam Vital Signs: Temp Pulse Resp BP Pulse Ox 36.9 C 80 18 117/54 L 86 L 08/16/18 23:36 08/17/18 02:00 08/16/18 23:36 08/16/18 23:36 08/16/18 23:36 Intake & Output 08/15/18 08/16/18 08/17/18 06:59 06:59 06:59 Intake Total 3466 2941 2035 Output Total 950 2265 2850 Balance 2516 676 -815 Weight 86.8 kg 87.2 kg 87.2 kg General appearance: PRESENT: no acute distress Respiratory exam: PRESENT: unlabored Cardiovascular exam: PRESENT: RRR Pulses: PRESENT: +1 pedal pulses bilateral Vascular exam: PRESENT: normal capillary refill Extremities exam: PRESENT: other - Right lower extremity dressings clean dry and intact. Leg lengths are equal. Neurological exam: PRESENT: alert, awake Skin exam: PRESENT: dry, intact, warm. ABSENT: cyanosis, rash Results Laboratory Results: 08/17/18 05:30 08/15/18 04:31 08/16/18 08/17/18 07:24 05:30 WBC 6.8 6.0 RBC 4.07 L 3.76 L Hgb 11.5 L 10.7 L Hct 33.9 L 31.1 L MCV 83 83 MCH 28.2 28.5 MCHC 33.8 34.5 RDW 15.6 H 16.0 H Plt Count 90 L 111 L 08/13/18 08/14/18 13:59 18:30 Troponin I < 0.012 < 0.012 Impressions: Head CT 08/13/18 13:22 IMPRESSION: 1. Chronic brain changes without acute abnormality. 2. Chronic cervical spine degenerative change. No fracture evident. Cervical Spine CT 08/13/18 13:23 IMPRESSION: 1. Chronic brain changes without acute abnormality. 2. Chronic cervical spine degenerative change. No fracture evident. Fluoroscopy 08/14/18 00:00 IMPRESSION: ORIF right hip fracture. Refer to operative note for further infor mation. Hip X-Ray 08/14/18 00:00 IMPRESSION: ORIF right hip fracture. Refer to operative note for further information. Status: Imported from PACS Assessment & Plan - Diagnosis (1) Intertrochanteric fracture of right hip Qualifiers: Encounter type: initial encounter Fracture type: closed Fracture alignment: nondisplaced Qualified Code(s): S72.144A - Nondisplaced intertroch anteric fracture of right femur, initial encounter for closed fracture Is this a current diagnosis for this admission?: Yes Plan: Transfer to a [facility] facility when bed available medical condition is appropriate. Follow-up with Dr. Ballard [facility] for surgery in 2 weeks for staple removal.
[2018-08-17] MEDS: FLUTICASONE/UMECLIDIN/VILANTER 100-62.5-25 MCG/DOSE IH SCH (09:50)
[2018-08-17] MEDS: FINASTERIDE 5 MG TABLET PO SCH (09:50)
[2018-08-17] MEDS: GABAPENTIN 100 MG CAPSULE PO SCH (09:50)
[2018-08-17] MEDS: ASPIRIN 81 MG TABLET, ENT COATED PO SCH (09:50)
--- NOTE | 2018-08-17 11:13 | PDOC TRANSFER SUMMARY ---
General - Admit/Disc Date/PCP Admission Date/Primary Care Provider: 08/13/18 17:06 BETZAIDA DUARTE MD Discharge Date: 08/17/18 - Discharge Diagnosis (1) Intertrochanteric fracture of right hip Is this a current diagnosis for this admission?: Yes Summary: Now POD #[address] Ballard. Recommend discharge to SNF for short term rehabilitation. Recommend follow up CBC in 5-7 days. Follow up with Dr. Ballard as scheduled on 08/29/18. (2) COPD (chronic obstructive pulmonary disease) Is this a current diagnosis for this admission?: Yes Summary: Stable and without exacerbation at this time; patient denies dyspnea, wheezing, cough. Lung sounds are clear. Continue home dose Trelegy. Incentive spirometer hourly while awake. (3) Depression Is this a current diagnosis for this admission?: Yes Summary: Stable. Recommend continuing the patient's home dose Wellbutrin. (4) Neuropathy Is this a current diagnosis for this admission?: Yes Summary: Recommend continuing the patient's home dose gabapentin. (5) Fall Is this a current diagnosis for this admission?: Yes (6) Unsteady gait Is this a current diagnosis for this admission?: Yes Summary: Chronic; patient's primary care provider recently discontinued Lyrica and transition to gabapentin for treatment of neuropathy. Discharge to SNF for continued rehab. (7) UTI (urinary tract infection) Is this a current diagnosis for this admission?: Yes Summary: Patient with asymptomatic UTI per urinalysis on admission. He does have a chronic, indwelling, catheter. He remains afebrile with a normal WBC. Perioperative antibiotics per Orthopedics; Ancef, which appropriately covers the most likely source of infection. Received 3 days of antibiotics. Recommend outpatient follow up with Urology within 2-4 weeks. - Additional Information Resuscitation Status: Full Code Discharge Diet: Regular Discharge Activity: Activity As Tolerated, Balance Activity w/Rest, Slowly Increase Activity, Supervised Activity Prescriptions: Aspirin [Ecotrin 81 mg EC Tablet] 81 mg PO DAILY #30 tabec Oxycodone HCl [Oxy-Ir 5 mg Tablet] 5 mg PO Q4HP PRN #20 tablet PRN Reason: Home Medications: Bupropion HCl [Bupropion Xl] 150 mg PO Q12 08/13/18 Finasteride [Proscar 5 mg Tablet] 5 mg PO DAILY 08/13/18 Fluticasone/Umeclidin/Vilanter [Trelegy 100-62.5-25 Mcg Ellipta 14 Dose/Dpi] 1 puff IH DAILY 08/13/18 Gabapentin [Neurontin 100 mg Capsule] 200 mg PO QAM 08/13/18 Gabapentin [Neurontin 100 mg Capsule] 300 mg PO QHS 08/13/18 Acetaminophen [Tylenol 325 mg Tablet] 650 mg PO Q4HP PRN tablet 08/17/18 Aspirin [Ecotrin 81 mg EC Tablet] 81 mg PO DAILY #30 tabec 08/17/18 Oxycodone HCl [Oxy-Ir 5 mg Tablet] 5 mg PO Q4HP PRN #20 tablet 08/17/18 History of Present Illness Admission Date/PCP: 08/13/18 17:06 BETZAIDA DUARTE MD History of Present Illness: Per H&P by Dr. Thomas: ELMER VERA is a 87 year old male history of unsteady gait, who was found on the floor by the son. Patient had a fall and had right hip pain and unable to get up. He apparently has had unsteady gait for 2 years and has been workup by his primary care physician in [place]. There is concern whether this is secondary to peripheral neuropathy versus Lyrica, and his Lyrica was changed to gabapentin. Patient was brought to the ED where x-ray revealed a right hip fracture. CT of the head and neck were negative for acute process or fracture. Orthopedics Dr. Ballard was contacted and recommended admission to medicine and he will consult. Patient denies chest pain, no palpitations. No nausea or vomiting, denies dysuria or polyuria, no urinary frequency. Denies rectal bleeding. He is hard of hearing. Physical Exam Vital Signs: Temp Pulse Resp BP Pulse Ox 97.8 F 86 18 113/68 95 08/17/18 07:25 08/17/18 07:25 08/17/18 07:25 08/17/18 07:25 08/17/18 07:25 Intake & Output 08/16/18 08/17/18 08/18/18 06:59 06:59 06:59 Intake Total 9951 9765 Output Total 6024 2660 Balance 676 -815 Weight 87.2 kg 87.2 kg General appearance: PRESENT: no acute distress, hard of hearing, well-developed, well-nourished Head exam: PRESENT: atraumatic, normocephalic Eye exam: PRESENT: conjunctiva pink, EOMI, PERRLA. ABSENT: scleral icterus Ear exam: PRESENT: normal external ear exam Mouth exam: PRESENT: moist, tongue midline Neck exam: ABSENT: carotid bruit, JVD, lymphadenopathy, thyromegaly Respiratory exam: PRESENT: clear to auscultation josy, symmetrical, unlabored. ABSENT: rales, rhonchi, wheezes Cardiovascular exam: PRESENT: RRR, +S1, +S2. ABSENT: diastolic murmur, rubs, systolic murmur Pulses: PRESENT: normal dorsalis pedis pul Vascular exam: PRESENT: normal capillary refill GI/Abdominal exam: PRESENT: normal bowel sounds, soft. ABSENT: distended, guarding, mass, organolmegaly, rebound, tenderness Rectal exam: PRESENT: deferred Extremities exam: PRESENT: tenderness - RLE. ABSENT: calf tenderness, clubbing, pedal edema Neurological exam: PRESENT: alert, awake, oriented to person, oriented to place, oriented to time, oriented to situation, CN II-XII grossly intact, other - Forgetful. ABSENT: motor sensory deficit Psychiatric exam: PRESENT: appropriate affect, normal mood. ABSENT: homicidal ideation, suicidal ideation Skin exam: PRESENT: dry, warm, other - Surgical incision to RLE w/ clean, dry, dressing. ABSENT: cyanosis, rash Results Laboratory Results: 08/17/18 05:30 08/15/18 04:31 08/17/18 05:30 WBC 6.0 RBC 3.76 L Hgb 10.7 L Hct 31.1 L MCV 83 MCH 28.5 MCHC 34.5 RDW 16.0 H Plt Count 111 L 08/13/18 08/14/18 13:59 18:30 Troponin I < 0.012 < 0.012 Impressions: Head CT 08/13/18 13:22 IMPRESSION: 1. Chronic brain changes without acute abnormality. 2. Chronic cer vical spine degenerative change. No fracture evident. Cervical Spine CT 08/13/18 13:23 IMPRESSION: 1. Chronic brain changes without acute abnormality. 2. Chronic cervical spine degenerative change. No fracture evident. Fluoroscopy 08/14/18 00:00 IMPRESSION: ORIF right hip fracture. Refer to operative note for further information. Hip X-Ray 08/14/18 00:00 IMPRESSION: ORIF right hip fracture. Refer to operative note for further information. Transfer Plan - Time Spent with Patient Time spent with patient: Less than 30 Minutes Qualifiers - * PATIENT BEING DISCHARGED WITH ANY OF THE FOLLOWING DIAGNOSIS: No Plan Discharge Plan: Discharge to [facility] for [facility] term [facility]. Recommend repeat CBC within 5-7 days. Follow up with Dr. Ballard as scheduled on 08/29/18. Follow up with primary care provider within 1 week of discharge from rehab. Time Spent: Less than 30 Minutes
[2018-08-17 11:39] VITALS: BP 122/61
== END 2018-08-17 13:48 | DRG 481 ==
LOC: ER 12:44 → EH 15:17 → OBSVTOIN 17:06 → 4N 17:26
PROVIDERS: ADMIT Family Medicine; ATTEND Family Medicine
PROC: 0QS636Z Reposition Right Upper Femur with Intramedullary Internal Fixation Device, Percutaneous Approach (ICD-10-PCS; principal; 2018-08-14 09:30)
DX: S72.144A Nondisplaced intertrochanteric fracture of right femur, initial encounter for closed fracture (principal); N39.0 Urinary tract infection, site not specified; G62.9 Polyneuropathy, unspecified; J44.9 Chronic obstructive pulmonary disease, unspecified; W01.0XXA Fall on same level from slipping, tripping and stumbling without subsequent striking against object, initial encounter; Y92.019 Unspecified place in single-family (private) house as the place of occurrence of the external cause; S50.312A Abrasion of left elbow, initial encounter; S50.311A Abrasion of right elbow, initial encounter; R26.81 Unsteadiness on feet; F32.9 Major depressive disorder, single episode, unspecified; R42 Dizziness and giddiness; H91.90 Unspecified hearing loss, unspecified ear; Z87.891 Personal history of nicotine dependence; Z89.022 Acquired absence of left finger(s)
CPT/HCPCS: 01230; 36415; 70450; 72125; 80048; 80053; 81001; 83735; 84484; 85025; 85027; 93005; 93010; 94799; 99285; C1713; C1769; G8978-GP; G8979-GP; J0690; J2250; J2270; J2370; J2704; J3010; J3490; J7040; J7120; L0120

== ENCOUNTER 2018-10-26 15:04 | Emergency (ER) | payer MEDICARE ==
--- NOTE | 2018-10-26 18:13 | RADIOLOGY REPORT (SQ) ---
EXAM DESCRIPTION: HIP BILATERAL COMPLETED DATE/TIME: 10/26/2018 5:59 pm REASON FOR STUDY: Fall and mid to low back pain COMPARISON: None. NUMBER OF VIEWS: Two views TECHNIQUE: AP pelvis and additional frog-leg view of both hips. LIMITATIONS: None. FINDINGS: MINERALIZATION: Normal. HIPS: No acute fracture or dislocation. No worrisome bone lesions. Status post right hip pinning PELVIS AND SACRUM: No acute fracture or dislocation. No worrisome bone lesions. PUBIS AND ISCHIUM: No acute fracture. LOWER LUMBAR SPINE: No significant findings as visualized. SOFT TISSUES: No findings. OTHER: No other significant finding. IMPRESSION: No acute posttraumatic change. TECHNICAL DOCUMENTATION: JOB ID: [id number] [employer]- All Rights Reserved Reading location - IP/workstation name: [email or web address]
--- NOTE | 2018-10-26 18:14 | RADIOLOGY REPORT (SQ) ---
EXAM DESCRIPTION: SACRUM AND COCCYX COMPLETED DATE/TIME: 10/26/2018 5:59 pm REASON FOR STUDY: Fall and mid to low back pain COMPARISON: None. NUMBER OF VIEWS: Three views. TECHNIQUE: AP, lateral, and cross-table lateral views of the sacrum and coccyx. LIMITATIONS: None. FINDINGS: MINERALIZATION: Normal. BONES: No acute fracture or dislocation. No worrisome bone lesions. SOFT TISSUES: No soft tissue swelling. No foreign body. OTHER: No other significant finding. IMPRESSION: No acute posttraumatic change. Study limited by positioning and large quantity of stool projected over the sacrum and coccyx. TECHNICAL DOCUMENTATION: JOB ID: [id number] [employer]- All Rights Reserved Reading location - IP/workstation name: [email or web address]
--- NOTE | 2018-10-26 18:15 | RADIOLOGY REPORT (SQ) ---
EXAM DESCRIPTION: T SPINE AP/LAT COMPLETED DATE/TIME: 10/26/2018 5:59 pm REASON FOR STUDY: Fall and mid to low back pain COMPARISON: None. NUMBER OF VIEWS: Two views. TECHNIQUE: AP and lateral radiographic images acquired of the thoracic spine. LIMITATIONS: None. FINDINGS: MINERALIZATION: Normal. ALIGNMENT: Normal. No scoliosis. VERTEBRAE: No fracture or bone lesion. Maintained height, normal segmentation. DISCS: No significant loss of height or significant narrowing. No large osteophytes. HARDWARE: None in the spine. MEDIASTINUM AND SOFT TISSUES: Normal heart size and aortic contour. No soft tissue abnormality. VISUALIZED LUNG MORALES: Clear. OTHER: No other significant finding. IMPRESSION: No acute posttraumatic changes. TECHNICAL DOCUMENTATION: JOB ID: [id number] [employer] All Rights Reserved Reading location - IP/workstation name: [email or web address]
--- NOTE | 2018-10-26 18:16 | RADIOLOGY REPORT (SQ) ---
EXAM DESCRIPTION: L SPINE WHOLE COMPLETED DATE/TIME: 10/26/2018 5:59 pm REASON FOR STUDY: Fall and mid to low back pain COMPARISON: None. NUMBER OF VIEWS: AP, cross-table lateral and obliques TECHNIQUE: AP, lateral, oblique, and sacral radiographic images acquired of the lumbar spine. LIMITATIONS: None. FINDINGS: No definite fracture identified however the lower lumbar spine is suboptimally visualized on the cross-table lateral an additional view should be obtained if clinically indicated. IMPRESSION: No definite acute posttraumatic change however lower lumbar spine suboptimally visualize d. TECHNICAL DOCUMENTATION: JOB ID: [id number] [employer]- All Rights Reserved Reading location - IP/workstation name: [email or web address]
[2018-10-26 18:34] LABS: APPEARANCE,URINE CLOUDY; BILIRUBIN,URINE SMALL (NEGATIVE); GLUCOSE, URINE NEGATIVE (NEGATIVE); KETONES,URINE NEGATIVE (NEGATIVE); LEUKOCYTE ESTERASE,URINE LARGE (NEGATIVE); NITRITE,URINE POSITIVE (NEGATIVE); PROTEIN,URINE 30 mg/dL (NEGATIVE); URINE SPECIFIC GRAVITY 1.024
[2018-10-26 18:37] LABS: COLOR,URINE YELLOW
--- NOTE | 2018-10-26 20:30 | ER Document Report ---
Entered by DONNA REED SCRIBE 10/26/18 1718 Acting as scribe for:ESTELLA ZIEGLER DO ED General - General Chief Complaint: Fall Injury Stated Complaint: BACK PAIN Time Seen by Provider: 10/26/18 16:00 Mode of Arrival: Ambulatory Information source: Patient Notes: Patient is an 87-year-old male with a history of dementia presents to the emergency department from [facility] complaining of lower back pain secondary to mechanical trip and fall. Patient states he does not remember a fall but states he is having lower back pain, just above the hips, which is exacerbated with sitting up. He denies any head pain, leg pain, or dysuria. TRAVEL OUTSIDE OF THE [place] 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, ORIF R hip Review of Systems - Review of Systems Constitutional: No symptoms reported EENT: No symptoms reported Cardiovascular: No symptoms reported Respiratory: No symptoms reported Genitourinary: No symptoms reported Male Genitourinary: No symptoms reported Musculoskeletal: See HPI Skin: No symptoms reported Hematologic/Lymphatic: No symptoms reported Neurological/Psychological: No symptoms reported -: Yes All other systems reviewed and negative Physical Exam - Vital signs Vitals: Temp Pulse Resp BP Pulse Ox 97.1 F 83 16 101/49 L 96 10/26/18 15:23 10/26/18 15:23 10/26/18 15:23 10/26/18 15:23 10/26/18 15:23 - Notes Notes: GENERAL: Alert, interacts well. No acute distress. HEAD: Normocephalic, atraumatic. EYES: Pupils equal, round, and reactive to light. Extraocular movements intact. ENT: Oral mucosa moist, tongue midline. NECK: Full range of motion. Supple. Trachea midline. LUNGS: Clear to auscultation bilaterally, no wheezes, rales, or rhonchi. No respiratory distress. Mildly tender to palpation to the right lateral ribs across the posterior axillary line without any signs of trauma or point tenderness. HEART: Mild tachycardia. No murmurs, gallops, or rubs. ABDOMEN: Soft, non-tender, no guarding, rigidity, or rebound.. Non-distended. Bowel sounds present in all 4 quadrants. EXTREMITIES: Moves all 4 extremities spontaneously. No edema, radial and dorsalis pedis pulses 2/4 bilaterally. 5/5 muscle strength. No cyanosis. NEUROLOGICAL: Alert and oriented to person and time, disoriented to place, [place] Normal speech. Biceps and patellar DTRs 2+ bilaterally. Normal sensations to BLE. No saddle anesthesia. PSYCH: Normal affect, normal mood. SKIN: Warm, dry, normal turgor. No rashes or lesions noted. BACK: Tender to palpation to the sacrum, no step-offs or deformities. Course - Re-evaluation Re-evalutation: 10/26/18 19:31 X-rays of the hip, lumbar spine, thoracic spine and sacrum and coccyx are all negative although the lumbar spine is somewhat poorly visualized. He does have moderate blood, positive nitrites and large leukocyte esterase in his urine. Patient has had recurrent persistent urinary tract infections. Patient will be treated with antibiotics and discharged home. 10/26/18 19:33 Previous cultures have shown susceptibility to Bactrim and fosfomycin. Patient will be treated with both of these and discharged home. - Vital Signs Vital signs: Temp Pulse Resp BP Pulse Ox 97.1 F 105 H 21 H 103/72 98 10/26/18 15:23 10/26/18 16:07 10/26/18 16:07 10/26/18 16:07 10/26/18 16:07 - Laboratory Laboratory results interpreted by me: 10/26/18 17:37 Urine Protein 30 H Urine Blood MODERATE H Urine Nitrite POSITIVE H Urine Bilirubin SMALL H Urine Urobilinogen 4.0 H Ur Leukocyte Esterase LARGE H Discharge - Discharge Clinical Impression: UTI (urinary tract infection) Qualifiers: Urinary tract infection type: acute cystitis Hematuria presence: with hematuria Qualified Code(s): N30.01 - Acute cystitis with hematuria Fall Qualifiers: Encounter type: initial encounter Qualified Code(s): W19.XXXA - Unspecified fall, initial encounter Condition: Stable Disposition: HOME-SNF (ED ONLY) Additional Instructions: There is no evidence of a broken back. You do have a urinary tract infection. Please take the fosfomycin once and take the Bactrim as directed until it is gone. Please return for fevers, worsening pain, confusion or any new or concerning symptoms. Prescriptions: Fosfomycin Tromethamine [Monurol 3 gm Packet] 3 gm PO NOW #1 packet Sulfamethoxazole/Trimethoprim [Bactrim Ds Tablet] 1 each PO BID #14 tablet I personally performed the services described in the documentation, reviewed and edited the documentation which was dictated to the scribe in my presence, and it accurately records my words and actions.
[2018-10-26 20:33] VITALS: BP 127/42
== END 2018-10-26 21:32 ==
LOC: ER 15:04
DX: N30.01 Acute cystitis with hematuria (principal); M54.9 Dorsalgia, unspecified; W01.0XXA Fall on same level from slipping, tripping and stumbling without subsequent striking against object, initial encounter; Y92.129 Unspecified place in nursing home as the place of occurrence of the external cause; J44.9 Chronic obstructive pulmonary disease, unspecified
CPT/HCPCS: 72070; 72110; 72220; 73522; 81001; 87086; 87088; 87186; 99284

== ENCOUNTER 2018-11-03 14:01 | Inpatient (IN) | payer MEDICARE ==
--- NOTE | 2018-11-03 15:05 | RADIOLOGY REPORT (SQ) ---
EXAM DESCRIPTION: CHEST SINGLE VIEW COMPLETED DATE/TIME: 11/03/2018 3:01 pm REASON FOR STUDY: ams COMPARISON: None. EXAM PARAMETERS: NUMBER OF VIEWS: One view. TECHNIQUE: Single frontal radiographic view of the chest acquired. RADIATION DOSE: NA LIMITATIONS: None. FINDINGS: LUNGS AND PLEURA: Lung osborne are hyperexpanded. There is flattening of the hemidiaphragm s. No consolidation or effusions. No pneumothorax. MEDIASTINUM AND HILAR STRUCTURES: No masses. Contour normal. HEART AND VASCULAR STRUCTURES: Heart normal in size. Normal vasculature. BONES: No acute findings. HARDWARE: None in the chest. OTHER: No other significant finding. IMPRESSION: COPD. No acute findings. TECHNICAL DOCUMENTATION: JOB ID: [id number] [employer]- All Rights Reserved Reading location - IP/workstation name: [email or web address]
[2018-11-03 15:10] LABS: ABSOLUTE EOSINOPHILS # (AUTO) 0.1 10^3/uL (0.0-0.6); ABSOLUTE LYMPHOCYTES (AUTO) 1.1 10^3/uL (0.5-4.7); ABSOLUTE MONOCYTES (AUTO) 0.9 10^3/uL (0.1-1.4); ABSOLUTE NEUT (AUTO) 7.9 10^3/uL (1.7-8.2); BASOPHILS % (AUTO) 0.5 % (0-2); EOSINOPHILS % (AUTO) 1.2 % (0-6); HEMATOCRIT 39.3 % (37.9-51.0); HEMOGLOBIN 13.1 g/dL (13.5-17.0); LYMPHOCYTES % (AUTO) 10.8 % (13-45); MEAN CORPUSCULAR HEMOGLOBIN 25.7 pg (27.0-33.4); MEAN CORPUSCULAR HGB CONC 33.3 g/dL (32.0-36.0); MEAN CORPUSCULAR VOLUME 77 fl (80-97); MONOCYTES % (AUTO) 8.7 % (3-13); PLATELET COUNT 241 10^3/uL (150-450); RED CELL DISTRIBUTION WIDTH 16.9 % (11.5-14.0); SEGMENTED NEUTROPHILS % (AUTO) 78.8 % (42-78); TOTAL CELLS COUNTED % (AUTO) 100 %; WHITE BLOOD COUNT 10.1 10^3/uL (4.0-10.5)
[2018-11-03 15:28] LABS: ALANINE AMINOTRANSFERASE 27 U/L (21-72); ALBUMIN 3.5 g/dL (3.5-5.0); ALKALINE PHOSPHATASE 200 U/L (38-126); ANION GAP 10 (5-19); ASPARTATE AMINO TRANSFERASE 30 U/L (17-59); BILIRUBIN,DIRECT 0.4 mg/dL (0.0-0.4); BLOOD UREA NITROGEN 20 mg/dL (7-20); CALCIUM 9.5 mg/dL (8.4-10.2); CARBON DIOXIDE 28 mmol/L (22-30); CHLORIDE 95 mmol/L (98-107); GLUCOSE 92 mg/dL (75-110); INTERNATIONAL RATION (INR) 1.05; POTASSIUM 4.5 mmol/L (3.6-5.0); PROTHROMBIN TIME 14.2 SEC (11.4-15.4); SODIUM 133.4 mmol/L (137-145); TOTAL PROTEIN 7.3 g/dL (6.3-8.2)
[2018-11-03] MEDS ORDERED: NORMAL SALINE 1000 ML 1,000 ML IV ONE ×2 (15:52→18:10)
[2018-11-03] MEDS ORDERED: PIPERACILLIN/TAZOBACTAM 3.375 GM VIAL IV ONE ×2 (17:41→19:00)
--- NOTE | 2018-11-03 17:45 | ER Document Report ---
Entered by SWATI RASHID SCRIBE 11/03/18 1513 Acting as scribe for:ANGELA MATA DO ED General - General Chief Complaint: Altered Mental Status Stated Complaint: ALTERED MENTAL STATUS Time Seen by Provider: 11/03/18 14:24 Information source: Patient, [facility] Records Notes: 88-year-old male who presents to the emergency department today with complaints of altered mental status per fdc staff. Patient was seen here on 10/26/18 secondary to a mechanical fall. At that time the patient was diagnosed with a urinary tract infection. Patient has an indwelling Galindo catheter. Antibiotics were stopped yesterday. TRAVEL OUTSIDE OF THE [place] 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, ORIF R hip Review of Systems - Review of Systems -: Yes ROS unobtainable due to patient's medical condition - demented, states he has no pain Physical Exam - Vital signs Vitals: Temp 97.7 F 11/03/18 14:15 Interpretation: No: Hypotensive, Tachycardic, Hypoxic, Febrile - General General appearance: Other - Drowsy but arousable - HEENT Head: Normocephalic, Atraumatic Mucous membranes: Dry - Respiratory Respiratory status: No respiratory distress Breath sounds: Normal - Cardiovascular Rhythm: Regular - Abdominal Inspection: Normal Tenderness: Nontender - Genitourinary Inspection: No: Blood at meatus, Penile discharge Notes: Old galindo catheter in place - Back Back: Other - Stage I sacral decub - Extremities General upper extremity: Normal inspection General lower extremity: Normal inspection - Neurological Cognition: Confused Orientation: Disoriented to place, Disoriented to time, Disoriented to events Kimberley Coma Scale Eye Opening: Spontaneous Cunningham Coma Scale Verbal: Confused Cunningham Coma Scale Motor: Obeys Commands Kimberley Coma Scale Total: 14 Speech: Normal Cranial nerves: Normal - Skin Skin Temperature: Warm Skin Moisture: Dry Course - Re-evaluation Re-evalutation: 11/03/18 16:00 Patient is an 88-year-old male who comes in with her drowsiness than usual. Patient has a history of dementia and I am unsure if he is more confused than usual. Regardless, the patient is a left shift and an elevated lactate of 2.9. He recently had a Pseudomonas UTI. Patient with UTI again today and Galindo catheter that needs to be changed. Cultures have been obtained and Zosyn has been initiated in the emergency department. Discussed with hospitalist will admit - Vital Signs Vital signs: Temp Pulse Resp BP Pulse Ox 97.7 F 11/03/18 14:15 - Laboratory Result Diagrams: 11/03/18 14:45 11/03/18 14:45 Laboratory results interpreted by me: 11/03/18 11/03/18 11/03/18 14:45 14:45 14:45 Hgb 13.1 L MCV 77 L MCH 25.7 L RDW 16.9 H Seg Neutrophils % 78.8 H Lymphocytes % 10.8 L Sodium 133.4 L Chloride 95 L Lactic Acid 2.9 H Alkaline Phosphatase 200 H - Diagnostic Test Radiology reviewed: Reports reviewed Discharge - Discharge Clinical Impression: UTI (urinary tract infection) Qualifiers: Urinary tract infection type: catheter-associated UTI Indwelling urinary catheter type: unspecified Encounter type: initial encounter Qualified Code(s): T83.511A - Infection and inflammatory reaction due to indwelling urethral catheter, initial encounter; N39.0 - Urinary tract infection, site not specified Altered mental status Qualifiers: Altered mental status type: unspecified Qualified Code(s): R41.82 - Altered mental status, unspecified Condition: Stable Disposition: ADMITTED OBSERVATION Admitting Provider: Hospitalist - [facility] Unit Admitted: Medical Floor Scribe Attestation: 11/03/18 17:45 I personally performed the services described in the documentation, reviewed and edited the documentation which was dictated to the scribe in my presence, and it accurately records my words and actions. I personally performed the services described in the documentation, reviewed and edited the documentation which was dictated to the scribe in my presence, and it accurately records my words and actions.
[2018-11-03 17:58] LABS: VENOUS BLOOD BASE EXCESS 1.4 mmol/L; VENOUS BLOOD HCO3 27.2 mmol/L (20-32); VENOUS BLOOD PCO2 47.9 mmHg (35-63); VENOUS BLOOD PH 7.37 (7.30-7.42)
--- NOTE | 2018-11-03 18:37 | PDOC H&P ---
History of Present Illness Admission Date/PCP: 11/03/18 16:23 MARGARET DUEÑAS MD Patient complains of: Back pain and altered mental status History of Present Illness: ELMER VERA is a 88 year old male who had back surgery August 2018. Since then he has had chronic back pain, and resided at [facility]. Much of the following information obtained from his son. Seems he had a Chavez at least for the last several weeks. Son reports his father was diagnosed with a urinary tract infection approximately 1-2 weeks ago. Reports he did take an oral antibiotics, but did not get better. Reports his mentation worsened over the last 2-3 days. He was brought to the emergency room due to his decreased mentation. Patient has a past history of urinary tract infections. At time of evaluation he is alert and oriented to self, hospital, [facility]. White blood cell count was normal. Elevated lactic acid. Urine is very concentrated. Emergency room change Chavez. Overall the patient appears stable. He does not appear comfortable due to his hip pain. 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, ORIF R hip Social History Lives with: [facility] Smoking Status: Former Smoker Frequency of Alcohol Use: None Hx Recreational Drug Use: No Hx Prescription Drug Abuse: No Family History Family History: Reviewed & Not Pertinent Parental Family History Reviewed: Yes Children Family History Reviewed: Yes Sibling(s) Family History Reviewed.: Yes Medication/Allergy Allergies/Adverse Reactions: No Known Allergies Allergy (Unverified 08/13/18 13:06) Physical Exam Vital Signs: Temp Pulse Resp BP Pulse Ox 97.7 F 11/03/18 14:15 Intake & Output 11/02/18 11/03/18 11/04/18 06:59 06:59 06:59 Weight 79 kg General appearance: PRESENT: no acute distress, cooperative, thin Head exam: PRESENT: atraumatic, normocephalic Eye exam: PRESENT: conjunctiva pink, EOMI, PERRLA. ABSENT: scleral icterus Ear exam: PRESENT: normal external ear exam Mouth exam: PRESENT: moist, tongue midline Teeth exam: PRESENT: other - Poor dentition Respiratory exam: PRESENT: other - Diminishment throughout. Prolonged expiratory phase. No appreciable rhonchi, crackles, wheeze. Cardiovascular exam: PRESENT: other - S1, S2, RRR GI/Abdominal exam: PRESENT: normal bowel sounds, soft. ABSENT: distended, guarding, mass, organolmegaly, rebound, tenderness Extremities exam: PRESENT: other - Trace bilateral lower extremity edema. Musculoskeletal exam: PRESENT: other - Limited range of motion left hip. Neurological exam: PRESENT: alert, awake, oriented to person, oriented to place, oriented to time, CN II-XII grossly intact, other - Gait not assessed Psychiatric exam: PRESENT: normal mood Results Laboratory Results: 11/03/18 14:45 11/03/18 14:45 11/03/18 11/03/18 11/03/18 14:45 14:45 14:45 WBC 10.1 RBC 5.10 Hgb 13.1 L Hct 39.3 MCV 77 L MCH 25.7 L MCHC 33.3 RDW 16.9 H Plt Count 241 Seg Neutrophils % 78.8 H Lymphocytes % 10.8 L Monocytes % 8.7 Eosinophils % 1.2 Basophils % 0.5 Absolute Neutrophils 7.9 Absolute Lymphocytes 1.1 Absolute Monocytes 0.9 Absolute Eosinophils 0.1 Absolute Basophils 0.0 VBG pH VBG pCO2 VBG HCO3 VBG Base Excess Sodium 133.4 L Potassium 4.5 Chloride 95 L Carbon Dioxide 28 Anion Gap 10 BUN 20 Creatinine 1.10 Est GFR ( Amer) > 60 Est GFR (Non-Af Amer) > 60 Glucose 92 Lactic Acid 2.9 H Calcium 9.5 Total Bilirubin 1.0 AST 30 ALT 27 Alkaline Phosphatase 200 H Total Protein 7.3 Albumin 3.5 11/03/18 17:43 WBC RBC Hgb Hct MCV MCH MCHC RDW Plt Count Seg Neutrophils % Lymphocytes % Monocytes % Eosinophils % Basophils % Absolute Neutrophils Absolute Lymphocytes Absolute Monocytes Absolute Eosinophils Absolute Basophils VBG pH 7.37 VBG pCO2 47.9 VBG HCO3 27.2 VBG Base Excess 1.4 Sodium Potassium Chloride Carbon Dioxide Anion Gap BUN Creatinine Est GFR ( Amer) Est GFR (Non-Af Amer) Glucose Lactic Acid Calcium Total Bilirubin AST ALT Alkaline Phosphatase Total Protein Albumin 11/03/18 14:45 Troponin I 0.026 Impressions: Chest X-Ray 11/03/18 00:00 IMPRESSION: COPD. No acute findings. Assessment and Plan - Diagnosis (1) COPD (chronic obstructive pulmonary disease) Is this a current diagnosis for this admission?: No (2) UTI (urinary tract infection) Qualifiers: Urinary tract infection type: catheter-associated UTI Indwelling urinary catheter type: unspecified Encounter type: initial encounter Qualified Code(s): T83.511A - Infection and inflammatory reaction due to indwelling urethral catheter, initial encounter; N39.0 - Urinary tract infection, site not specified Is this a current diagnosis for this admission?: Yes (3) Altered mental status Qualifiers: Altered mental status type: unspecified Qualified Code(s): R41.82 - Altered mental status, unspecified Is this a current diagnosis for this admission?: Yes - Time Time Spent with patient: 15-24 minutes Medications reviewed and adjusted accordingly: Yes Anticipated discharge: Acute Rehab - Inpatient Certification Based on my medical assessment, after consideration of the patient's comorbidities, presenting symptoms, or acuity I expect that the services needed warrant INPATIENT care.: Yes I certify that my determination is in accordance with my understanding of Medicare's requirements for reasonable and necessary INPATIENT services [42 CFR 412.3e].: Yes - Plan Summary Plan Summary: 1-sepsis: Evidenced by laboratory findings. Most likely from urinary tract infection. Chavez was changed in the emergency room. He received 1 dose of IV Zosyn. He has been ordered 1 bag of IV normal saline wide open, followed by maintenance IV normal saline. Start patient on IV Levaquin 750 mg x 5 days. Recheck labs in the morning. Urine and blood cultures pending 2-chronic pain related to recent hip surgery and falls. We will manage this the best we can, however patient and family are aware that pain medications can alter his mental status, and decrease his respiratory drive, so we will proceed with trying to treat the infection first, and treat the pain second. We will ask physical therapy to evaluate and treat. 3-COPD: Appears to be stable at this time. Continue home medications.
[2018-11-03 18:40] LABS: APPEARANCE,URINE TURBID; BILIRUBIN,URINE NEGATIVE (NEGATIVE); GLUCOSE, URINE NEGATIVE (NEGATIVE); KETONES,URINE TRACE mg/dL (NEGATIVE); LEUKOCYTE ESTERASE,URINE LARGE (NEGATIVE); NITRITE,URINE POSITIVE (NEGATIVE); PROTEIN,URINE 30 mg/dL (NEGATIVE); URINE SPECIFIC GRAVITY 1.025
[2018-11-03 18:42] LABS: COLOR,URINE DARK YELLOW
[2018-11-03] MEDS: GABAPENTIN 100 MG CAPSULE PO SCH (22:22)
[2018-11-03] MEDS: LEVOFLOXACIN 750 MG/D5W RTU 750 MG/150 ML RTUPB IV SCH (22:23)
--- NOTE | 2018-11-03 22:54 | EKG REPORT ---
SEVERITY:- NORMAL ECG - SINUS RHYTHM : Confirmed by: Cielo Mukherjee 03-Nov-2018 22:54:26
[2018-11-04] MEDS: GABAPENTIN 100 MG CAPSULE PO SCH ×3 (05:35→21:47)
[2018-11-04 07:10] LABS: ABSOLUTE EOSINOPHILS # (AUTO) 0.1 10^3/uL (0.0-0.6); ABSOLUTE LYMPHOCYTES (AUTO) 0.7 10^3/uL (0.5-4.7); ABSOLUTE MONOCYTES (AUTO) 0.6 10^3/uL (0.1-1.4); ABSOLUTE NEUT (AUTO) 5.2 10^3/uL (1.7-8.2); BASOPHILS % (AUTO) 0.3 % (0-2); EOSINOPHILS % (AUTO) 1.9 % (0-6); HEMOGLOBIN 12.2 g/dL (13.5-17.0); LYMPHOCYTES % (AUTO) 10.9 % (13-45); MEAN CORPUSCULAR HEMOGLOBIN 25.3 pg (27.0-33.4); MEAN CORPUSCULAR HGB CONC 32.9 g/dL (32.0-36.0); MEAN CORPUSCULAR VOLUME 77 fl (80-97); MONOCYTES % (AUTO) 9.4 % (3-13); PLATELET COUNT 175 10^3/uL (150-450); RED BLOOD COUNT 4.82 10^6/uL (4.35-5.55); RED CELL DISTRIBUTION WIDTH 16.8 % (11.5-14.0); SEGMENTED NEUTROPHILS % (AUTO) 77.5 % (42-78); TOTAL CELLS COUNTED % (AUTO) 100 %; WHITE BLOOD COUNT 6.7 10^3/uL (4.0-10.5)
[2018-11-04 07:26] LABS: ALANINE AMINOTRANSFERASE 28 U/L (21-72); ALBUMIN 2.8 g/dL (3.5-5.0); ALKALINE PHOSPHATASE 165 U/L (38-126); ANION GAP 8 (5-19); ASPARTATE AMINO TRANSFERASE 26 U/L (17-59); BLOOD UREA NITROGEN 17 mg/dL (7-20); CALCIUM 8.9 mg/dL (8.4-10.2); CARBON DIOXIDE 25 mmol/L (22-30); CHLORIDE 99 mmol/L (98-107); GLUCOSE 88 mg/dL (75-110); POTASSIUM 4.6 mmol/L (3.6-5.0); SODIUM 131.8 mmol/L (137-145)
[2018-11-04 07:27] LABS: BILIRUBIN,DIRECT 0.4 mg/dL (0.0-0.4); TOTAL PROTEIN 5.9 g/dL (6.3-8.2)
[2018-11-04] MEDS ORDERED: IPRATROPIUM/ALBUTEROL 0.5-2.5 MG/3 ML AMPUL NEB PRN (07:42)
[2018-11-04] MEDS: FINASTERIDE 5 MG TABLET PO SCH (10:47)
[2018-11-04] MEDS: ASPIRIN 81 MG TABLET, ENT COATED PO SCH (10:47)
[2018-11-04] MEDS: TRAMADOL HCL 50 MG TABLET PO PRN ×2 (10:47→21:46)
[2018-11-04] MEDS: FLUTICASONE/UMECLIDIN/VILANTER 100-62.5-25 MCG/DOSE IH SCH (10:48)
--- NOTE | 2018-11-04 12:31 | EKG REPORT ---
SEVERITY:- NORMAL ECG - SINUS RHYTHM : Confirmed by: Cielo Mukherjee 04-Nov-2018 12:30:17
--- NOTE | 2018-11-04 14:10 | PDOC PROGRESS REPORT ---
Addendum entered and electronically signed by FLORENCE ALLRED PA-C 11/04/18 14:11: Provider Note Provider Note: Sodium 131.8. Normal saline at 115 an hour. Monitor. Original Note: Subjective Progress Note for:: 11/04/18 Subjective:: Nursing did note a wound on his coccyx. No systemic signs of infection at this time. Patient does have some difficulty communicating information partially due to hard of hearing. Overall improving. Reason For Visit: UTI Physical Exam Vital Signs: Temp Pulse Resp BP Pulse Ox 97.7 F 97 18 123/42 L 98 11/04/18 11:29 11/04/18 11:29 11/04/18 11:29 11/04/18 11:29 11/04/18 11:29 Intake & Output 11/03/18 11/04/18 11/05/18 06:59 06:59 06:59 Intake Total 2150 Output Total 450 Balance 1700 Weight 72.1 kg General appearance: PRESENT: no acute distress, cooperative, thin Head exam: PRESENT: atraumatic, normocephalic Eye exam: PRESENT: conjunctiva pink, EOMI, PERRLA. ABSENT: scleral icterus Ear exam: PRESENT: normal external ear exam Mouth exam: PRESENT: moist, tongue midline Respiratory exam: PRESENT: other - Some diffuse crackles in diminishment throughout. No wheezing or rhonchi appreciated. Cardiovascular exam: PRESENT: RRR, +S1, +S2 Pulses: PRESENT: +1 pedal pulses bilateral GI/Abdominal exam: PRESENT: normal bowel sounds, soft. ABSENT: distended, guarding, mass, organolmegaly, rebound, tenderness Extremities exam: PRESENT: other - Trace edema bilateral lower extremities. Musculoskeletal exam: PRESENT: normal inspection, other - Limited range of motion left hip. Otherwise normal. Neurological exam: PRESENT: alert, awake, oriented to person, oriented to place, oriented to time, oriented to situation, CN II-XII grossly intact. ABSENT: mot or sensory deficit Psychiatric exam: PRESENT: appropriate affect, normal mood. ABSENT: homicidal ideation, suicidal ideation Results Laboratory Results: 11/04/18 06:48 11/04/18 06:48 11/03/18 11/03/18 11/03/18 14:45 14:45 14:45 WBC 10.1 RBC 5.10 Hgb 13.1 L Hct 39.3 MCV 77 L MCH 25.7 L MCHC 33.3 RDW 16.9 H Plt Count 241 Seg Neutrophils % 78.8 H Lymphocytes % 10.8 L Monocytes % 8.7 Eosinophils % 1.2 Basophils % 0.5 Absolute Neutrophils 7.9 Absolute Lymphocytes 1.1 Absolute Monocytes 0.9 Absolute Eosinophils 0.1 Absolute Basophils 0.0 VBG pH VBG pCO2 VBG HCO3 VBG Base Excess Sodium 133.4 L Potassium 4.5 Chloride 95 L Carbon Dioxide 28 Anion Gap 10 BUN 20 Creatinine 1.10 Est GFR ( Amer) > 60 Est GFR (Non-Af Amer) > 60 Glucose 92 Lactic Acid 2.9 H Calcium 9.5 Total Bilirubin 1.0 AST 30 ALT 27 Alkaline Phosphatase 200 H Total Protein 7.3 Albumin 3.5 Urine Color Urine Appearance Urine pH Ur Specific [place] Urine Protein Urine Glucose (UA) Urine Ketones Urine Blood Urine Nitrite Ur Leukocyte Esterase Urine WBC (Auto) Urine RBC (Auto) 11/03/18 11/03/18 11/03/18 16:20 17:43 19:21 WBC RBC Hgb Hct MCV MCH MCHC RDW Plt Count Seg Neutrophils % Lymphocytes % Monocytes % Eosinophils % Basophils % Absolute Neutrophils Absolute Lymphocytes Absolute Monocytes Absolute Eosinophils Absolute Basophils VBG pH 7.37 VBG pCO2 47.9 VBG HCO3 27.2 VBG Base Excess 1.4 Sodium Potassium Chloride Carbon Dioxide Anion Gap BUN Creatinine Est GFR ( Amer) Est GFR (Non-Af Amer) Glucose Lactic Acid 0.9 Calcium Total Bilirubin AST ALT Alkaline Phosphatase Total Protein Albumin Urine Color DARK YELLOW Urine Appearance TURBID Urine pH 5.0 Ur Specific [place] 1.025 Urine Protein 30 H Urine Glucose (UA) NEGATIVE Urine Ketones TRACE H Urine Blood MODERATE H Urine Nitrite POSITIVE H Ur Leukocyte Esterase LARGE H Urine WBC (Auto) 121 Urine RBC (Auto) 14 11/04/18 11/04/18 11/04/18 06:48 06:48 06:48 WBC 6.7 RBC 4.82 Hgb 12.2 L Hct 37.0 L MCV 77 L MCH 25.3 L MCHC 32.9 RDW 16.8 H Plt Count 175 Seg Neutrophils % 77.5 Lymphocytes % 10.9 L Monocytes % 9.4 Eosinophils % 1.9 Basophils % 0.3 Absolute Neutrophils 5.2 Absolute Lymphocytes 0.7 Absolute Monocytes 0.6 Absolute Eosinophils 0.1 Absolute Basophils 0.0 VBG pH VBG pCO2 VBG HCO3 VBG Base Excess Sodium 131.8 L Potassium 4.6 Chloride 99 Carbon Dioxide 25 Anion Gap 8 BUN 17 Creatinine 0.97 Est GFR ( Amer) > 60 Est GFR (Non-Af Amer) > 60 Glucose 88 Lactic Acid 0.8 Calcium 8.9 Total Bilirubin 1.0 AST 26 ALT 28 Alkaline Phosphatase 165 H Total Protein 5.9 L Albumin 2.8 L Urine Color Urine Appearance Urine pH Ur Specific [place] Urine Protein Urine Glucose (UA) Urine Ketones Urine Blood Urine Nitrite Ur Leukocyte Esterase Urine WBC (Auto) Urine RBC (Auto) 11/03/18 14:45 Troponin I 0.026 Impressions: Chest X-Ray 11/03/18 00:00 IMPRESSION: COPD. No acute findings. Assessment and Plan - Diagnosis (1) COPD (chronic obstructive pulmonary disease) Is this a current diagnosis for this admission?: No (2) UTI (urinary tract infection) Qualifiers: Urinary tract infection type: catheter-associated UTI Indwelling urinary catheter type: unspecified Encounter type: initial encounter Qualified Code(s): T83.511A - Infection and inflammatory reaction due to indwelling urethral catheter, initial encounter; N39.0 - Urinary tract infection, site not specified Is this a current diagnosis for this admission?: Yes (3) Altered mental status Qualifiers: Altered mental status type: unspecified Qualified Code(s): R41.82 - Altered mental status, unspecified Is this a current diagnosis for this admission?: Yes - Time Time Spent with patient: 15-24 minutes Medications reviewed and adjusted accordingly: Yes Anticipated discharge: Acute Rehab - Inpatient Certification Based on my medical assessment, after consideration of the patient's comorbidities, presenting symptoms, or acuity I expect that the services needed warrant INPATIENT care.: Yes I certify that my determination is in accordance with my understanding of Medicare's requirements for reasonable and necessary INPATIENT services [42 CFR 412.3e].: Yes - Plan Summary Plan Summary: 1-sepsis: Evidenced by laboratory findings. Most likely from urinary tract infection. Chavez was changed in the emergency room. He received 1 dose of IV Zosyn. He has been ordered 1 bag of IV normal saline wide open, followed by maintenance IV normal saline. Start patient on IV Levaquin 750 mg x 5 days. Recheck labs in the morning. Urine and blood cultures pending 11/04: Improving. Continue antibiotics. Monitoring. Lactic acid normal x2. 2-chronic pain related to recent hip surgery and falls. We will manage this the best we can, however patient and family are aware that pain medications can alt er his mental status, and decrease his respiratory drive, so we will proceed with trying to treat the infection first, and treat the pain second. We will ask physical therapy to evaluate and treat. 11/04: Adjust PRN [place], Tylenol, gabapentin as appropriate. Monitoring. 3-COPD: Appears to be stable at this time. Continue home medications. 11/04: Stable, no issues. 4-psychiatric medications: Patient would likely sleep better if he to call his Wellbutrin in the morning, and some other maximization of my medications could be done here in the hospital, will discuss plan with son before altering these medications. 5- coocyx wound: Found by nursing. Consult wound care. Disposition: Likely return to acute rehab on discharge to continue therapy.
[2018-11-04] MEDS: NORMAL SALINE 1000 ML 1,000 ML IV PRN (14:50)
[2018-11-05] MEDS: NORMAL SALINE 1000 ML 1,000 ML IV PRN ×2 (01:14→14:17)
[2018-11-05] MEDS: GABAPENTIN 100 MG CAPSULE PO SCH ×3 (05:13→21:00)
[2018-11-05] MEDS: FLUTICASONE/UMECLIDIN/VILANTER 100-62.5-25 MCG/DOSE IH SCH (07:57)
[2018-11-05] MEDS: ASPIRIN 81 MG TABLET, ENT COATED PO SCH (07:57)
[2018-11-05] MEDS: FINASTERIDE 5 MG TABLET PO SCH (07:57)
--- NOTE | 2018-11-05 10:41 | PDOC PROGRESS REPORT ---
Subjective Progress Note for:: 11/05/18 Subjective:: Patient continues to look better each day. Denies fever or chills in the last 48 hours. His p.o. intake is still poor. He continues to have a bright affect. Blood cultures came back 1 out of 2+ with gram-positive cocci. Reason For Visit: UTI Physical Exam Vital Signs: Temp Pulse Resp BP Pulse Ox 98.5 F 102 H 18 117/42 L 98 11/05/18 08:00 11/05/18 08:00 11/05/18 08:00 11/05/18 08:00 11/05/18 08:00 Intake & Output 11/04/18 11/05/18 11/06/18 06:59 06:59 06:59 Intake Total 2150 1643 Output Total 450 970 Balance 1700 673 Weight 72.1 kg 73 kg General appearance: PRESENT: no acute distress, cooperative, hard of hearing, thin Head exam: PRESENT: atraumatic, normocephalic Eye exam: PRESENT: conjunctiva pink, EOMI, PERRLA. ABSENT: scleral icterus Ear exam: PRESENT: normal external ear exam Mouth exam: PRESENT: dry mucosa, other - Poor dentition Respiratory exam: PRESENT: other - Symmetrical diminishment throughout. No significant rales, rhonchi, wheeze. Cardiovascular exam: PRESENT: RRR, +S1, +S2 Pulses: PRESENT: normal dorsalis pedis pul Vascular exam: PRESENT: normal capillary refill GI/Abdominal exam: PRESENT: normal bowel sounds, soft. ABSENT: distended, guar ding, mass, organolmegaly, rebound, tenderness Extremities exam: PRESENT: other - No edema bilateral lower extremities. Normal sensation bilateral lower extremities. Strength 3-4 out of 5 bilateral lower extremities. Musculoskeletal exam: PRESENT: normal inspection Neurological exam: PRESENT: alert, awake, oriented to person, oriented to place, oriented to situation, CN II-XII grossly intact, other - Gait no assist Psychiatric exam: PRESENT: normal mood Results Laboratory Results: 11/04/18 06:48 11/04/18 06:48 11/03/18 16:20 Chavez Catheter Urine Culture - Final Pseudomonas Aeruginosa 11/03/18 14:45 Troponin I 0.026 Impressions: Chest X-Ray 11/03/18 00:00 IMPRESSION: COPD. No acute findings. Assessment and Plan - Diagnosis (1) COPD (chronic obstructive pulmonary disease) Is this a current diagnosis for this admission?: No (2) UTI (urinary tract infection) Qualifiers: Urinary tract infection type: catheter-associated UTI Indwelling urinary catheter type: unspecified Encounter type: initial encounter Qualified Code(s): T83.511A - Infection and inflammatory reaction due to indwelling urethral catheter, initial encounter; N39.0 - Urinary tract infection, site not specified Is this a current diagnosis for this admission?: Yes (3) Altered mental status Qualifiers: Altered mental status type: unspecified Qualified Code(s): R41.82 - Altered mental status, unspecified Is this a current diagnosis for this admission?: Yes (5) Dehydration Is this a current diagnosis for this admission?: Yes - Time Time Spent with patient: 15-24 minutes Medications reviewed and adjusted accordingly: Yes Anticipated discharge: Acute Rehab - Inpatient Certification Based on my medical assessment, after consideration of the patient's comorbidities, presenting symptoms, or acuity I expect that the services needed warrant INPATIENT care.: Yes I certify that my determination is in accordance with my understanding of Medicare's requirements for reasonable and necessary INPATIENT services [42 CFR 412.3e].: Yes - Plan Summary Plan Summary: 1-sepsis: Evidenced by laboratory findings. Most likely from urinary tract infection. Chavez was changed in the emergency room. He received 1 dose of IV Zosyn. He has been ordered 1 bag of IV normal saline wide open, followed by maintenance IV normal saline. Start patient on IV Levaquin 750 mg x 5 days. Recheck labs in the morning. Urine and blood cultures pending 11/04: Improving. Continue antibiotics. Monitoring. Lactic acid normal x2. 11/05: Blood cultures 1 out of 2 positive for gram-positive cocci. Repeat cultures. Clinically looks better. 2-chronic pain related to recent hip surgery and falls. We will manage this the best we can, however patient and family are aware that pain medications can alter his mental status, and decrease his respiratory drive, so we will proceed with trying to treat the infection first, and treat the pain second. We will ask physical therapy to evaluate and treat. 11/04: Adjust PRN [place], Tylenol, gabapentin as appropriate. Monitoring. 11/05: Denies being in pain, and reports current pain is managed well. 3-COPD: Appears to be stable at this time. Continue home medications. 11/04: Stable, no issues. 11/05: Continues to be stable with no issues. 4-psychiatric medications: Patient would likely sleep better if he to call his Wellbutrin in the morning, and some other maximization of my medications could be done here in the hospital, will discuss plan with son before altering these medications. 11/05: Still not had the opportunity to discuss the alternatives psychiatric medications with family. 5- coocyx wound: Found by nursing. Consult wound care. 6-Dehydration: Very concentrated urine. Improving with IV fluids at 115 an hour. Expect his sodium level will correct with fluids as well. Disposition: Return to rehab on discharge.
[2018-11-05 10:56] LABS: HEMOGLOBIN 12.9 g/dL (13.5-17.0); MEAN CORPUSCULAR HEMOGLOBIN 25.3 pg (27.0-33.4); MEAN CORPUSCULAR HGB CONC 33.2 g/dL (32.0-36.0); MEAN CORPUSCULAR VOLUME 76 fl (80-97); PLATELET COUNT 206 10^3/uL (150-450); RED BLOOD COUNT 5.11 10^6/uL (4.35-5.55); RED CELL DISTRIBUTION WIDTH 16.9 % (11.5-14.0); WHITE BLOOD COUNT 7.3 10^3/uL (4.0-10.5)
[2018-11-05 11:21] LABS: ALANINE AMINOTRANSFERASE 30 U/L (21-72); ALBUMIN 2.8 g/dL (3.5-5.0); ALKALINE PHOSPHATASE 195 U/L (38-126); ANION GAP 12 (5-19); ASPARTATE AMINO TRANSFERASE 32 U/L (17-59); BILIRUBIN,DIRECT 0.5 mg/dL (0.0-0.4); BILIRUBIN,TOTAL 0.9 mg/dL (0.2-1.3); BLOOD UREA NITROGEN 14 mg/dL (7-20); CARBON DIOXIDE 23 mmol/L (22-30); CHLORIDE 97 mmol/L (98-107); GLUCOSE 108 mg/dL (75-110); POTASSIUM 4.1 mmol/L (3.6-5.0); SODIUM 131.5 mmol/L (137-145); TOTAL PROTEIN 5.9 g/dL (6.3-8.2)
[2018-11-05] MEDS: LEVOFLOXACIN 750 MG/D5W RTU 750 MG/150 ML RTUPB IV SCH (18:40)
[2018-11-05] MEDS: TRAMADOL HCL 50 MG TABLET PO PRN (21:00)
[2018-11-06] MEDS: NORMAL SALINE 1000 ML 1,000 ML IV PRN ×3 (00:26→18:14)
[2018-11-06] MEDS ORDERED: NORMAL SALINE 250 ML IV ONE (01:30)
[2018-11-06] MEDS: GABAPENTIN 100 MG CAPSULE PO SCH ×3 (05:24→21:49)
[2018-11-06] MEDS: TRAMADOL HCL 50 MG TABLET PO PRN ×2 (08:45→15:40)
[2018-11-06] MEDS: FLUTICASONE/UMECLIDIN/VILANTER 100-62.5-25 MCG/DOSE IH SCH (08:46)
[2018-11-06] MEDS: ASPIRIN 81 MG TABLET, ENT COATED PO SCH (08:46)
[2018-11-06 09:10] LABS: HEMATOCRIT 38.1 % (37.9-51.0); HEMOGLOBIN 12.4 g/dL (13.5-17.0); MEAN CORPUSCULAR HEMOGLOBIN 24.8 pg (27.0-33.4); MEAN CORPUSCULAR HGB CONC 32.5 g/dL (32.0-36.0); MEAN CORPUSCULAR VOLUME 76 fl (80-97); PLATELET COUNT 287 10^3/uL (150-450); RED CELL DISTRIBUTION WIDTH 17.1 % (11.5-14.0); WHITE BLOOD COUNT 11.4 10^3/uL (4.0-10.5)
[2018-11-06] MEDS: FINASTERIDE 5 MG TABLET PO SCH (09:25)
[2018-11-06 09:46] LABS: ALANINE AMINOTRANSFERASE 24 U/L (21-72); ALBUMIN 2.6 g/dL (3.5-5.0); ALKALINE PHOSPHATASE 191 U/L (38-126); ANION GAP 11 (5-19); ASPARTATE AMINO TRANSFERASE 24 U/L (17-59); BILIRUBIN,DIRECT 0.6 mg/dL (0.0-0.4); BILIRUBIN,TOTAL 1.2 mg/dL (0.2-1.3); BLOOD UREA NITROGEN 13 mg/dL (7-20); CALCIUM 8.6 mg/dL (8.4-10.2); CARBON DIOXIDE 18 mmol/L (22-30); CHLORIDE 101 mmol/L (98-107); GLUCOSE 102 mg/dL (75-110); POTASSIUM 4.2 mmol/L (3.6-5.0); SODIUM 130.3 mmol/L (137-145); TOTAL PROTEIN 5.5 g/dL (6.3-8.2)
[2018-11-07] MEDS: NORMAL SALINE 1000 ML 1,000 ML IV PRN ×2 (00:10→17:18)
[2018-11-07] MEDS: GABAPENTIN 100 MG CAPSULE PO SCH ×3 (05:39→21:20)
[2018-11-07 07:29] LABS: ABSOLUTE EOSINOPHILS # (AUTO) 0.2 10^3/uL (0.0-0.6); ABSOLUTE LYMPHOCYTES (AUTO) 0.7 10^3/uL (0.5-4.7); ABSOLUTE MONOCYTES (AUTO) 0.6 10^3/uL (0.1-1.4); BASOPHILS % (AUTO) 0.7 % (0-2); EOSINOPHILS % (AUTO) 3.4 % (0-6); HEMATOCRIT 35.2 % (37.9-51.0); HEMOGLOBIN 11.5 g/dL (13.5-17.0); LYMPHOCYTES % (AUTO) 10.5 % (13-45); MEAN CORPUSCULAR HEMOGLOBIN 24.9 pg (27.0-33.4); MEAN CORPUSCULAR HGB CONC 32.8 g/dL (32.0-36.0); MEAN CORPUSCULAR VOLUME 76 fl (80-97); MONOCYTES % (AUTO) 9.5 % (3-13); PLATELET COUNT 193 10^3/uL (150-450); RED BLOOD COUNT 4.64 10^6/uL (4.35-5.55); RED CELL DISTRIBUTION WIDTH 16.3 % (11.5-14.0); SEGMENTED NEUTROPHILS % (AUTO) 75.9 % (42-78); TOTAL CELLS COUNTED % (AUTO) 100 %; WHITE BLOOD COUNT 6.5 10^3/uL (4.0-10.5)
[2018-11-07 07:57] LABS: ANION GAP 8 (5-19); BLOOD UREA NITROGEN 10 mg/dL (7-20); CALCIUM 8.6 mg/dL (8.4-10.2); CARBON DIOXIDE 21 mmol/L (22-30); CHLORIDE 102 mmol/L (98-107); GLUCOSE 96 mg/dL (75-110); POTASSIUM 3.7 mmol/L (3.6-5.0); SODIUM 131.1 mmol/L (137-145)
[2018-11-07] MEDS: FINASTERIDE 5 MG TABLET PO SCH (08:19)
[2018-11-07] MEDS: ASPIRIN 81 MG TABLET, ENT COATED PO SCH (08:19)
[2018-11-07] MEDS: FLUTICASONE/UMECLIDIN/VILANTER 100-62.5-25 MCG/DOSE IH SCH (08:20)
[2018-11-07] MEDS ORDERED: LEVOFLOXACIN 750 MG/D5W RTU 750 MG/150 ML RTUPB IV SCH (10:00)
--- NOTE | 2018-11-07 13:43 | PDOC PROGRESS REPORT ---
Subjective Progress Note for:: 11/06/18 Subjective:: Staff reports patient is slightly improved today. Evidently he was quite lethargic yesterday. He has been started on levofloxacin for suspected cystitis. Reason For Visit: UTI Physical Exam Vital Signs: Temp Pulse Resp BP Pulse Ox 98.2 F 153 H 20 104/49 L 95 11/06/18 11:29 11/06/18 11:29 11/06/18 11:29 11/06/18 11:29 11/06/18 11:29 Intake & Output 11/05/18 11/06/18 11/07/18 06:59 06:59 06:59 Intake Total 1643 2872 1000 Output Total 970 1060 275 Balance 673 1812 725 Weight 73 kg 72.8 kg 72.8 kg General appearance: PRESENT: cooperative - But still quite somnolent., well- developed - Frail-appearing 88-year-old patient resting in bed. Head exam: PRESENT: atraumatic, normocephalic Eye exam: PRESENT: conjunctiva pink. ABSENT: scleral icterus Ear exam: PRESENT: normal external ear exam Mouth exam: PRESENT: dry mucosa, tongue midline, other - There was some dark mucoid secretions on his tongue. Respiratory exam: PRESENT: rales - Faint rales at bases, symmetrical, unlabored. ABSENT: accessory muscle use, rhonchi, wheezes Cardiovascular exam: PRESENT: RRR, +S1, +S2 GI/Abdominal exam: PRESENT: normal bowel sounds, soft. ABSENT: distended, tenderness Rectal exam: PRESENT: deferred Extremities exam: ABSENT: pedal edema Neurological exam: PRESENT: awake, oriented to person, oriented to place. ABSENT: alert - Still somnolent. He does answer questions. Occasionally had to repeat a question. He does not keep eyes open to maintain eye contact. Psychiatric exam: PRESENT: flat affect, other - Somnolent. ABSENT: agitated, anxious Focused psych exam: ABSENT: delusional Results Laboratory Results: 11/06/18 08:58 11/06/18 08:58 11/06/18 11/06/18 08:58 08:58 WBC 11.4 H RBC 5.00 Hgb 12.4 L Hct 38.1 MCV 76 L MCH 24.8 L MCHC 32.5 RDW 17.1 H Plt Count 287 Sodium 130.3 L Potassium 4.2 Chloride 101 Carbon Dioxide 18 L Anion Gap 11 BUN 13 Creatinine 0.85 Est GFR ( Amer) > 60 Est GFR (Non-Af Amer) > 60 Glucose 102 Calcium 8.6 Total Bilirubin 1.2 AST 24 ALT 24 Alkaline Phosphatase 191 H Total Protein 5.5 L Albumin 2.6 L 11/03/18 14:45 Troponin I 0.026 Impressions: Chest X-Ray 11/03/18 00:00 IMPRESSION: COPD. No acute findings. Assessment and Plan - Diagnosis (1) UTI (urinary tract infection) Qualifiers: Urinary tract infection type: catheter-associated UTI Indwelling urinary catheter type: unspecified Encounter type: initial encounter Qualified Code(s): T83.511A - Infection and inflammatory reaction due to indwelling urethral catheter, initial encounter; N39.0 - Urinary tract infection, site not specified Is this a current diagnosis for this admission?: Yes Plan: The patient's urine is positive for Pseudomonas. It is very sensitive. We will change his levofloxacin to daily. We will need to adjust the dose if his renal function changes. The patient has a Chavez catheter in place. Evidently this was placed at [facility] for urinary retention. I have asked that they change his catheter. We can consider pulling the catheter and seeing if he voids however there was [facility] that he was catheterized for 3 L worth of urine. A goal would certainly be removal of the catheter as this would exacerbate infection. Acute cystitis in a patient this age certainly is a cause for altered mental status. On admission the patient did not have an elevated white cell count. He was not febrile and he did not require oxygen supplementation. After review of the patient's initial presentation, based on the laboratory studies and vital signs as well as no need for supplemental oxygenation the patient does not meet criteria for sepsis on admission. (2) Bacteremia due to Streptococcus Is this a current diagnosis for this admission?: Yes Plan: The patient's initial blood cultures had gram-positive cocci. Both sets have an alpha hemolytic Streptococcus. This may very well be strep viridans. One bottle had staph epidermidis and this was likely contaminant. An additional set of blood culture bottles that were obtained show preliminary positive results. It is hard to know if the levofloxacin will cover. Of note his white blood cell count is higher today than yesterday. Is in the low positive range of 11.4. This certainly could be due to the Pseudomonas cystitis. Consider having Dr. Salazar from infectious diseases review the case as we may need to increase/expand antibiotic therapy. Bacteremia certainly would contribute to altered mental status as well. (3) Altered mental status Qualifiers: Altered mental status type: unspecified Qualified Code(s): R41.82 - Altered mental status, unspecified Is this a current diagnosis for this admission?: Yes Plan: Most likely etiology is the cystitis. On occasion patients with cystitis we will not mount a marked white blood cell response or fever. This patient displayed neither. He was given some IV fluids for a clinical presentation of dehydration. He did have normal BUN and creatinine. It appears that his mental status is improving each day. It is improving with antibiotic therapy and so certainly the infection does seem to be the most likely etiology. He also has positive blood cultures with preliminary results of gram-positive cocci. He is on tramadol but it does not seem to be an excessive dose. His serum sodium is also decreased. I would not expect a sodium of 130 to be the cause of altered mental status. Continue to monitor. We may need to institute a fluid restriction. (4) Dehydration Is this a current diagnosis for this admission?: Yes Plan: Evidently there was clinical dehydration on admission. He is tolerating IV fluid. This seems to be helping as well. (5) COPD (chronic obstructive pulmonary disease) Is this a current diagnosis for this admission?: Yes Plan: Currently the patient does not require oxygen. We will continue his trilogy inhaler with as needed nebulizers. With his current status he is at increased risk for decompensation but so far is stable. - Time Time Spent with patient: 15-24 minutes Medications reviewed and adjusted accordingly: Yes - Plan Summary Plan Summary: NS 175/hr. levo 750 q24, labs
--- NOTE | 2018-11-07 15:14 | PDOC PROGRESS REPORT ---
Subjective Progress Note for:: 11/07/18 Subjective:: The patient is an 88-year-old male with a past medical history of COPD, depression, recent back surgery (August 2018) who was admitted 11/03/2018 for UTI with altered mental status. The patient was seen on afternoon rounds. He is found resting in bed comfortably on room air. He was awake and oriented to self; conversationally appropriate, but quickly becoming confused. Per nursing he has had increased strength and interactions with staff today; has eaten most of his meals today. The patient denies fever, chest pain, dyspnea, abdominal pain, nausea. He had no specific questions at this time. No family members were present. No concerns per nursing. Reason For Visit: UTI Physical Exam Vital Signs: Temp Pulse Resp BP Pulse Ox 97.8 F 97 16 132/42 H 100 11/07/18 11:33 11/07/18 11:33 11/07/18 11:33 11/07/18 11:33 11/07/18 11:33 Intake & Output 11/06/18 11/07/18 11/08/18 06:59 06:59 06:59 Intake Total 2872 2410 250 Output Total 1060 1550 Balance 1812 860 250 Weight 72.8 kg 72.4 kg General appearance: PRESENT: no acute distress, hard of hearing, well-developed, well-nourished, other - Frail-appearing Head exam: PRESENT: atraumatic, normocephalic Eye exam: PRESENT: conjunctiva pink, EOMI, PERRLA. ABSENT: scleral icterus Mouth exam: PRESENT: moist, tongue midline Teeth exam: PRESENT: poor dentation Neck exam: ABSENT: carotid bruit, JVD, lymphadenopathy, thyromegaly Respiratory exam: PRESENT: decreased breath sounds - Bibasilar, symmetrical, unlabored. ABSENT: rales, rhonchi, wheezes Cardiovascular exam: PRESENT: RRR, +S1, +S2. ABSENT: diastolic murmur, rubs, systolic murmur Vascular exam: PRESENT: normal capillary refill GI/Abdominal exam: PRESENT: normal bowel sounds, soft. ABSENT: distended, guarding, mass, organolmegaly, rebound, tenderness Rectal exam: PRESENT: deferred Extremities exam: ABSENT: pedal edema Neurological exam: PRESENT: alert, awake, oriented to person, CN II-XII grossly intact, other - Pleasantly confused. ABSENT: oriented to place, oriented to time, oriented to situation, motor sensory deficit Psychiatric exam: PRESENT: appropriate affect, normal mood. ABSENT: homicidal ideation, suicidal ideation Skin exam: PRESENT: dry, intact, warm. ABSENT: cyanosis, rash Results Laboratory Results: 11/07/18 06:52 11/07/18 06:52 11/07/18 11/07/18 06:52 06:52 WBC 6.5 RBC 4.64 Hgb 11.5 L Hct 35.2 L MCV 76 L MCH 24.9 L MCHC 32.8 RDW 16.3 H Plt Count 193 Seg Neutrophils % 75.9 Lymphocytes % 10.5 L Monocytes % 9.5 Eosinophils % 3.4 Basophils % 0.7 Absolute Neutrophils 5.0 Absolute Lymphocytes 0.7 Absolute Monocytes 0.6 Absolute Eosinophils 0.2 Absolute Basophils 0.0 Sodium 131.1 L Potassium 3.7 Chloride 102 Carbon Dioxide 21 L Anion Gap 8 BUN 10 Creatinine 0.77 Est GFR ( Amer) > 60 Est GFR (Non-Af Amer) > 60 Glucose 96 Calcium 8.6 Magnesium 2.0 11/03/18 14:45 Blood Blood Culture - Final Viridans Strep Group 11/03/18 15:33 Blood Blood Culture - Final Staphylococcus Epidermidis Viridans Strep Group 11/03/18 14:45 Troponin I 0.026 Impressions: Chest X-Ray 11/03/18 00:00 IMPRESSION: COPD. No acute findings. Assessment and Plan - Diagnosis (1) UTI (urinary tract infection) Qualifiers: Urinary tract infection type: catheter-associated UTI Indwelling urinary catheter type: unspecified Encounter type: initial encounter Qualified Code(s): T83.511A - Infection and inflammatory reaction due to indwelling urethral catheter, initial encounter; N39.0 - Urinary tract infection, site not specified Is this a current diagnosis for this admission?: Yes Plan: Urinalysis positive for UTI. Urine culture grew Pseudomonas sensitive to Levaquin. Multiple blood cultures positive for viridans strep. Chavez catheter was exchanged on admission. He is admitted to the medical floor. He has been placed on IV Levaquin (appropriate for Pseudomonas in the urine as well as staph epidermidis and viridans strep and blood cultures). Day #5 Continue gentle IV fluids. (2) Bacteremia due to Streptococcus Is this a current diagnosis for this admission?: Yes Plan: Blood culture (11/03/18) 4 of 4 bottles positive for viridans strep, 2 of 4 bottles positive for staph epidermidis. Repeat blood culture (11/05/18) 2 of 4 bottles growing gram-positive cocci in pairs. Repeat blood cultures (11/07/18) pending. Continue IV Levaquin; day #5. Dr. Salazar has been consulted; appreciate her evaluation recommendations. (3) Dehydration Is this a current diagnosis for this admission?: Yes Plan: Improved; has trended down from 1.10 to 0.77; BUN 20 down to 10. Continue gentle IV fluids. Encourage p.o. fluids. Monitor with daily chemistries. (4) COPD (chronic obstructive pulmonary disease) Is this a current diagnosis for this admission?: Yes Plan: Stable and without exacerbation; currently maintaining oxygen saturations on room air. We will continue his trilogy inhaler with as needed nebulizers. (5) Altered mental status Qualifiers: Altered mental status type: unspecified Qualified Code(s): R41.82 - Altered mental status, unspecified Is this a current diagnosis for this admission?: Yes Plan: Multifactorial; UTI versus strep bacteremia versus dehydration versus exacerbation of underlying dementia due to hospital environment. Appears to be improving; patient was alert and oriented to self, conversationally appropriate, becoming progressively confused throughout our discussion. Per nursing he has improved alertness and interactions with staff today. We will continue to monitor. Provide for patient safety. Fall precautions. Supportive care. Remaining management as above. - Time Time Spent with patient: 15-24 minutes Medications reviewed and adjusted accordingly: Yes Anticipated discharge: SNF - Inpatient Certification Based on my medical assessment, after consideration of the patient's comorbidities, presenting symptoms, or acuity I expect that the services needed warrant INPATIENT care.: Yes I certify that my determination is in accordance with my understanding of Medicare's requirements for reasonable and necessary INPATIENT services [42 CFR 412.3e].: Yes Medical Necessity: Need For IV Fluids, Need for IV Antibiotics
--- NOTE | 2018-11-07 18:07 | Progress Note ---
Provider Note Provider Note: ID Telephone Consult Note Asked to review patient's chart by Michelle Reeder NP. Pt not seen or examined. Reviewed recent cultures, imaging reports, provider reports and VS. Pt is an 88 year old male longterm patient with PMH/PSH including dementia, COPD, ORIF R hip, and recent back surgery in Aug 2018 who was admitted on 11/03/18 for increased altered mental status per longterm staff. He has an indwelling Chavez catheter. He also had a recent presentation to the ED after having a mechanical fall 7 days prior, at which time he was given the diagnosis of pseudomonal UTI. Pt was afebrile. On exam, he was noted to have poor dentition, no murmur, decreased bibasilar breath sounds, and unremarkable abdomen and skin. Initial labs included an elevated lactic acid level and serum creatinine 1.1. Imaging included CXR AP film that showed hyperexpanded lungs c/w COPD but no acute findings. Blood cultures drawn about 1 hour apart at two different sites both grew viridans group Streptococci (penicillin JESSICA 2, Rocephin susceptible). Staphylococcus epidermidis also grew from the second set. Urine culture grew Pseudomonas aeruginosa. Levaquin 750 mg q48h was intiated on 11/03 and continued until 11/07 - now it is daily. Repeat blood cultures on 11/05 have GPCs in pairs preliminarily reported from one blood culture bottle. Repeat BCx have been ordered for today 11/07. Impression/Recommendations 1. Asymptomatic Pseudomonas bacteriuria or urinary colonization. - Pt was sent to the hosptial for altered mental status and was found to have bacteria in his blood, a normally sterile site. The urine is not sterile, and nearly all patients with a chronic indwelling Chavez have urine culture growth. Whether the urine culture growth is meaningful clinically, depends on the context. It seems that in this setting his symptoms are likely attributable to the bacteremia. - No treatment indicated 2. Viridans streptococcus bacteremia - Viridans streptococci are part of the normal zahra of the mouth and GI tract, and the poor dentition noted on exam may be the original source seeding his bloodstream. - Although viridans streptococci can certainly be blood culture contaminants or perhaps found transiently, the fact that he had this organism present in all bottles drawn at two separate sites about an hour apart is concerning that he had a true viridans streptococcal bacteremia. The GPCs in pairs reported preliminarily for repeat cultures 2 days later is additionally worrisome that he has a sustained bacteremia, which should not happen without a continued focus of infection. His situation is concerning for an endovascular focus of infection, such as subacute bacterial endocarditis. - If not already done, the patient should be carefully examined for physical exam finding suggesting IE such as splinter hemorrhages, Janeway lesions or Osler's nodes. Can send rheumatoid factor, since its production can be an immunological phenomenon seen with subacute bacterial endocarditis also. - Would treat with Rocephin 2 g IV daily instead of Levaquin. - Would screen for IE with TTE. Rusty Salazar MD [facility] Infectious Diseases pager [phone]
[2018-11-08] MEDS: NORMAL SALINE 1000 ML 1,000 ML IV PRN (03:30)
[2018-11-08] MEDS: GABAPENTIN 100 MG CAPSULE PO SCH ×3 (05:20→21:16)
[2018-11-08] MEDS: FLUTICASONE/UMECLIDIN/VILANTER 100-62.5-25 MCG/DOSE IH SCH (07:43)
[2018-11-08] MEDS: FINASTERIDE 5 MG TABLET PO SCH (07:43)
[2018-11-08] MEDS: ASPIRIN 81 MG TABLET, ENT COATED PO SCH (07:43)
[2018-11-08] MEDS: CEFTRIAXONE 2 GM/D5W RTU 2 GM/50 ML RTUPB IV SCH (09:15)
--- NOTE | 2018-11-08 16:21 | PDOC PROGRESS REPORT ---
Subjective Progress Note for:: 11/08/18 Subjective:: The patient is an 88-year-old male with a past medical history of COPD, depression, recent back surgery (August 2018) who was admitted 11/03/2018 for UTI with altered mental status. The patient was seen on afternoon rounds, unfortunately, no family members were present. He is found resting in bed comfortably on room air. He was sleeping soundly and woke partially when I said his name but quickly fell back to sleep. Per nursing he has had increased strength and interactions with staff today; conversational and orientated to self and hospital. They report increased appetite as well. No concerns per nursing. Reason For Visit: UTI Physical Exam Vital Signs: Temp Pulse Resp BP Pulse Ox 97.5 F 98 18 125/45 L 98 11/08/18 14:44 11/08/18 14:44 11/08/18 14:44 11/08/18 14:44 11/08/18 14:44 Intake & Output 11/07/18 11/08/18 11/09/18 06:59 06:59 06:59 Intake Total 2410 2690 2070 Output Total 1550 3000 500 Balance 860 -310 1570 Weight 72.4 kg 73.8 kg 73.8 kg General appearance: PRESENT: no acute distress, hard of hearing, well-developed, well-nourished Head exam: PRESENT: atraumatic, normocephalic Eye exam: PRESENT: conjunctiva pink, EOMI, PERRLA. ABSENT: scleral icterus Mouth exam: PRESENT: moist, tongue midline Teeth exam: PRESENT: poor dentation Neck exam: ABSENT: carotid bruit, JVD, lymphadenopathy, thyromegaly Respiratory exam: PRESENT: clear to auscultation josy, symmetrical, unlabored. ABSENT: rales, rhonchi, wheezes Cardiovascular exam: PRESENT: RRR Pulses: PRESENT: normal dorsalis pedis pul Vascular exam: PRESENT: normal capillary refill GI/Abdominal exam: PRESENT: normal bowel sounds, soft. ABSENT: distended, guarding, mass, organolmegaly, rebound, tenderness Rectal exam: PRESENT: deferred Extremities exam: ABSENT: pedal edema Neurological exam: PRESENT: CN II-XII grossly intact, other - Sleeping soundly; no facial asymetry noted. Per nursing; orientated to self and place today.. ABSENT: motor sensory deficit Skin exam: PRESENT: dry, intact, warm. ABSENT: cyanosis, rash Results Laboratory Results: 11/07/18 06:52 11/07/18 06:52 11/03/18 14:45 Blood Blood Culture - Final Viridans Strep Group 11/03/18 15:33 Blood Blood Culture - Final Staphylococcus Epidermidis Viridans Strep Group 11/03/18 14:45 Troponin I 0.026 Impressions: Chest X-Ray 11/03/18 00:00 IMPRESSION: COPD. No acute findings. Assessment and Plan - Diagnosis (1) UTI (urinary tract infection) Qualifiers: Urinary tract infection type: catheter-associated UTI Indwelling urinary catheter type: unspecified Encounter type: initial encounter Qualified Code(s): T83.511A - Infection and inflammatory reaction due to indwelling urethral catheter, initial encounter; N39.0 - Urinary tract infection, site not specified Is this a current diagnosis for this admission?: Yes Plan: Resolved. Urinalysis positive for UTI. Urine culture grew Pseudomonas sensitive to Levaquin. Multiple blood cultures positive for viridans strep (see below). Galindo catheter was exchanged on admission. He is admitted to the medical floor. Infectious disease was consulted; per Dr. 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 He was been placed on IV Levaquin (appropriate for Pseudomonas in the urine as well as staph epidermidis and viridans strep and blood cultures). Received 5 days of therapy. Continue gentle IV fluids. (2) Bacteremia due to Streptococcus Is this a current diagnosis for this admission?: Yes Plan: Blood culture (11/03/18) 4 of 4 bottles positive for viridans strep, 2 of 4 bottles positive for staph epidermidis. Repeat blood culture (11/05/18) 2 of 4 bottles growing gram-positive cocci in pairs. Repeat blood cultures (11/07/18) no growth at [address] Salazar was consulted; appreciate her evaluation recommendations. Echo pending to evaluate for infective endocarditis. IV Levaquin discontinued; start IV Rocephin 2 gm daily. (3) Dehydration Is this a current diagnosis for this admission?: Yes Plan: Improved; has trended down from 1.10 to 0.77; BUN 20 down to 10. Continue gentle IV fluids. Encourage p.o. fluids. Monitor with daily chemistries. (4) COPD (chronic obstructive pulmonary disease) Is this a current diagnosis for this admission?: Yes Plan: Stable and without exacerbation; currently maintaining oxygen saturations on room air. We will continue his trilogy inhaler with as needed nebulizers. (5) Altered mental status Qualifiers: Altered mental status type: unspecified Qualified Code(s): R41.82 - Altered mental status, unspecified Is this a current diagnosis for this admission?: Yes Plan: Improving. Multifactorial; strep bacteremia versus dehydration versus exacerbation of underlying dementia due to hospital environment. Appears to be improving; patient was alert and oriented to self, conversationally appropriate, becoming progressively confused throughout our discussion. Per nursing he has improved alertness and interactions with staff today. We will continue to monitor. Provide for patient safety. Fall precautions. Supportive care. Remaining management as above. - Time Time Spent with patient: 15-24 minutes Medications reviewed and adjusted accordingly: Yes Anticipated discharge: SNF
[2018-11-08] MEDS: TRAMADOL HCL 50 MG TABLET PO PRN (18:31)
--- NOTE | 2018-11-08 22:35 | XCELERA REPORT ---
[address] [address] Transthoracic Echocardiogram Report Name: ELMER VERA Age: 88 yrs Gender: Male : 1930 Patient Status: Inpatient Patient Location: [address] [place], [place] [address] Study Date: 11/08/2018 05:46 PM Height: 72 in Weight: 162 lb BSA: 1.9 m2 Procedure: A two-dimensional transthoracic echocardiogram with color flow Doppler was performed. Study Quality: Technically suboptimal. The study was technically difficult with many images being suboptimal in quality. Images were not obtained from all of the standard acoustic windows due to the limited scope of the study. Reason For Study: bacteremia; ? endocarditis History: bacteremia; / endocarditis. Ordering Physician: BRIAN FAY Performed By: Arielle Petit Interpretation Summary Cannot comment on other valses due to poor visualisation. RECOMMEND MAYUR. Images were not obtained from all of the standard acoustic windows due to the limited scope of the study. The left ventricle is grossly normal size. No True apical 2 chamber views obtained.Hence cannot comment on the apical anterior , the basal anterior, the basal inferior and apical inferior ennis.The mid anterior , the mid inferior and the rest of the LV ennis contract normally. . LVEF is normal and is greater than 60% in the limited views. Doppler measurements suggest impaired left ventricular relaxation, which is associated with grade I/IV or mild diastolic dysfunction The left atrial size is normal. There is no evidence of mitral valve prolapse. Probable trace MR. Cannot comment on other valses due to poor visualisation. RECOMMEND MAYUR. There is no pericardial effusion. MMode/2D Measurements & Calculations RVDd: 2.8 cm LVIDd: 5.7 cm FS: 38.9 % Ao root diam: 2.5 cm IVSd: 1.0 cm LVIDs: 3.5 cm EDV(Teich): 159.1 ml Ao root area: 5.0 cm2 LVPWd: 0.98 cm ESV(Teich): 49.9 ml LA dimension: 3.4 cm EF(Teich): 68.7 % Doppler Measurements & Calculations MV E max heather: MV P1/2t max heather: Ao V2 max: AI max heather: 53.3 cm/sec 158.1 cm/sec 105.1 cm/sec 374.6 cm/sec MV A max heather: MV P1/2t: 79.1 msec Ao max PG: AI max P.0 cm/sec MVA(P1/2t): 2.8 cm2 4.4 mmHg 56.1 mmHg MV E/A: 0.67 MV dec slope: AI dec slope: 293.9 cm/sec2 585.5 cm/sec2 AI P1/2t: MV dec time: 0.21 sec 373.4 msec LV V1 max PG: PA V2 max: PI end-d heather: TR max heather: 2.7 mmHg 78.5 cm/sec 71.8 cm/sec 214.5 cm/sec LV V1 max: PA max P.5 mmHg TR max P.4 cm/sec 18.4 mmHg AV P1/2t-pr_phl: MV P1/2t-pr_phl: 373.4 msec 79.1 msec Left Ventricle The left ventricle is grossly normal size. There is normal left ventricular wall thickness. No True apical 2 chamber views obtained.Hence cannot comment on the apical anterior , the basal anterior, the basal inferior and apical inferior ennis.The mid anterior , the mid inferior and the rest of the LV ennis contract normally. . LVEF is normal and is greater than 60% in the limited views. Doppler measurements suggest impaired left ventricular relaxation, which is associated with grade I/IV or mild diastolic dysfunction. Right Ventricle The right ventricle is not well visualized secondary to technical limitations. Atria Right atrium not well visualized secondary to technical limitations. The left atrial size is normal. Mitral Valve There is no evidence of mitral valve prolapse. There is no vegetation seen on the mitral valve. There is no mitral valve stenosis. Probable trace MR. Effusions There is no pericardial effusion. : BRIAN FAY > Nadine Braden
[2018-11-09] MEDS: TRAMADOL HCL 50 MG TABLET PO PRN ×3 (02:39→19:55)
[2018-11-09] MEDS: GABAPENTIN 100 MG CAPSULE PO SCH ×3 (05:11→22:12)
[2018-11-09 07:34] LABS: HEMATOCRIT 34.9 % (37.9-51.0); HEMOGLOBIN 11.4 g/dL (13.5-17.0); MEAN CORPUSCULAR HGB CONC 32.8 g/dL (32.0-36.0); MEAN CORPUSCULAR VOLUME 76 fl (80-97); PLATELET COUNT 183 10^3/uL (150-450); RED BLOOD COUNT 4.57 10^6/uL (4.35-5.55); RED CELL DISTRIBUTION WIDTH 16.6 % (11.5-14.0)
[2018-11-09 07:56] LABS: ANION GAP 6 (5-19); BLOOD UREA NITROGEN 11 mg/dL (7-20); CALCIUM 8.4 mg/dL (8.4-10.2); CARBON DIOXIDE 27 mmol/L (22-30); CHLORIDE 99 mmol/L (98-107); GLUCOSE 97 mg/dL (75-110); POTASSIUM 3.6 mmol/L (3.6-5.0); SODIUM 132.1 mmol/L (137-145)
[2018-11-09] MEDS: FINASTERIDE 5 MG TABLET PO SCH (10:43)
[2018-11-09] MEDS: ASPIRIN 81 MG TABLET, ENT COATED PO SCH (10:43)
[2018-11-09] MEDS: CEFTRIAXONE 2 GM/D5W RTU 2 GM/50 ML RTUPB IV SCH (10:43)
[2018-11-09] MEDS: FLUTICASONE/UMECLIDIN/VILANTER 100-62.5-25 MCG/DOSE IH SCH (10:44)
[2018-11-09] MEDS: NORMAL SALINE 1000 ML 1,000 ML IV PRN (12:00)
--- NOTE | 2018-11-09 13:11 | PDOC PROGRESS REPORT ---
Subjective Progress Note for:: 11/09/18 Subjective:: The patient is an 88-year-old male with a past medical history of COPD, depression, recent back surgery (August 2018) who was admitted 11/03/2018 for UTI with altered mental status. The patient was seen on afternoon rounds with his son present. He is found resting in bed comfortably on room air. He was sleeping, but woke easily when I said his name. He is orientated to self and conversationally appropriate, but pleasantly confused today. He denies fever, chills, chest pain, shortness of breath, cough, abdominal pain, nausea vomiting and diarrhea. He does report persistent left hip pain; though states that this is not bothering him at present. He has no other concerns or at this time. Long discussion had with the patient's son, Rodney Sheriff, regarding strep viridans bacteremia and recommendations for MAYUR and possible long-term antibiotics. The patient's son is agreeable to arranging for MAYUR at [facility]. No concerns per nursing. Reason For Visit: UTI Physical Exam Vital Signs: Temp Pulse Resp BP Pulse Ox 97.5 F 81 18 94/35 L 94 11/09/18 11:08 11/09/18 11:08 11/09/18 11:08 11/09/18 11:08 11/09/18 11:08 Intake & Output 11/08/18 11/09/18 11/10/18 06:59 06:59 06:59 Intake Total 2690 2310 50 Output Total 3000 1345 Balance -310 965 50 Weight 73.8 kg 81.2 kg General appearance: PRESENT: no acute distress, hard of hearing, well-developed, well-nourished Head exam: PRESENT: atraumatic, normocephalic Eye exam: PRESENT: conjunctiva pink, EOMI, PERRLA. ABSENT: scleral icterus Mouth exam: PRESENT: dry mucosa, tongue midline Teeth exam: PRESENT: poor dentation Neck exam: ABSENT: carotid bruit, JVD, lymphadenopathy, thyromegaly Respiratory exam: PRESENT: clear to auscultation josy, symmetrical, unlabored. ABSENT: rales, rhonchi, wheezes Cardiovascular exam: PRESENT: RRR. ABSENT: diastolic murmur, rubs, systolic murmur Pulses: PRESENT: normal dorsalis pedis pul Vascular exam: PRESENT: normal capillary refill GI/Abdominal exam: PRESENT: normal bowel sounds, soft. ABSENT: distended, guarding, mass, organolmegaly, rebound, tenderness Rectal exam: PRESENT: deferred Extremities exam: PRESENT: full ROM. ABSENT: calf tenderness, clubbing, pedal edema Neurological exam: PRESENT: alert, awake, oriented to person, CN II-XII grossly intact, other - Pleasantly confused, socially appropriate. ABSENT: motor sensory deficit Psychiatric exam: PRESENT: appropriate affect, normal mood. ABSENT: homicidal ideation, suicidal ideation Skin exam: PRESENT: dry, intact, petechiae - bilateral hands, warm, other - scattered echymosis. ABSENT: cyanosis, rash Results Laboratory Results: 11/09/18 06:29 11/09/18 06:29 11/09/18 11/09/18 06:29 06:29 WBC 6.0 RBC 4.57 Hgb 11.4 L Hct 34.9 L MCV 76 L MCH 25.0 L MCHC 32.8 RDW 16.6 H Plt Count 183 Sodium 132.1 L Potassium 3.6 Chloride 99 Carbon Dioxide 27 Anion Gap 6 BUN 11 Creatinine 0.78 Est GFR ( Amer) > 60 Est GFR (Non-Af Amer) > 60 Glucose 97 Calcium 8.4 11/03/18 14:45 Troponin I 0.026 Impressions: Chest X-Ray 11/03/18 00:00 IMPRESSION: COPD. No acute findings. Assessment and Plan - Diagnosis (1) UTI (urinary tract infection) Qualifiers: Urinary tract infection type: catheter-associated UTI Indwelling urinary catheter type: unspecified Encounter type: initial encounter Qualified Code(s): T83.511A - Infection and inflammatory reaction due to indwelling urethral catheter, initial encounter; N39.0 - Urinary tract infection, site not specified Is this a current diagnosis for this admission?: Yes Plan: Resolved. Urinalysis positive for UTI. Urine culture grew Pseudomonas sensitive to Levaquin. Multiple blood cultures positive for viridans strep (see below). Galindo catheter was exchanged on admission. He is admitted to the medical floor. Infectious disease was consulted; per Dr. 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 He was been placed on IV Levaquin (appropriate for Pseudomonas in the urine as well as staph epidermidis and viridans strep and blood cultures). Received 5 days of therapy. Continue gentle IV fluids. (2) Bacteremia due to Streptococcus Is this a current diagnosis for this admission?: Yes Plan: Blood culture (11/03/18) 4 of 4 bottles positive for viridans strep, 2 of 4 bottles positive for staph epidermidis. Repeat blood culture (11/05/18) 2 of 4 bottles growing gram-positive cocci. Repeat blood cultures (11/07/18) 2 of 4 bottles growing gram-positive cocci in pairs. Repeat blood cultures (11/09/18) are pending. On exam, patient was noted to have petechia to the palms of both hands but no definitive signs of splinter hemorrhages, Osler nodes or Janeway lesions. Dr. Salazar was consulted; appreciate her evaluation recommendations. Transthoracic echocardiogram was of poor quality; mitral valve showed prolapse and regurgitation. Other valves were not visible. Spoke with [facility] today to arrange for MAYUR next week. Continue Rocephin 2 gm daily. (3) Dehydration Is this a current diagnosis for this admission?: Yes Plan: Resolved; creatinine now 0.78 with BUN of 11. Continue gentle IV fluids. Encourage p.o. fluids. Monitor with daily chemistries. (4) COPD (chronic obstructive pulmonary disease) Is this a current diagnosis for this admission?: Yes Plan: Stable and without exacerbation; currently maintaining oxygen saturations on room air. We will continue his trilogy inhaler with as needed nebulizers. (5) Altered mental status Qualifiers: Altered mental status type: unspecified Qualified Code(s): R41.82 - Altered mental status, unspecified Is this a current diagnosis for this admission?: Yes Plan: Improving; now oriented to self, intermittently place, socially appropriate and conversational. Multifactorial; strep bacteremia versus dehydration versus exacerbation of underlying dementia due to hospital environment. We will continue to monitor. Provide for patient safety. Fall precautions. Supportive care. Remaining management as above. - Time Time Spent with patient: 25-34 minutes Medications reviewed and adjusted accordingly: Yes Anticipated discharge: SNF - Inpatient Certification Based on my medical assessment, after consideration of the patient's comor bidities, presenting symptoms, or acuity I expect that the services needed warrant INPATIENT care.: Yes I certify that my determination is in accordance with my understanding of Medicare's requirements for reasonable and necessary INPATIENT services [42 CFR 412.3e].: Yes Medical Necessity: Need for IV Antibiotics
[2018-11-09] MEDS ORDERED: GENTAMICIN SULFATE 0 MG in DEXTROSE 5%-WATER 100 ML IV NR (17:30)
--- NOTE | 2018-11-09 19:56 | Progress Note ---
Provider Note Provider Note: ID Consult Note Reviewed most recent provider reports, VS, labs and imaging results. Spoke with Michelle Reeder, RON, via telephone earlier this evening. On exam, she has noted some petechiae on his hands. 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 The more rapid decline in the patient's overall health over the past several months also would fit with the time frame for subacute endocarditis due to streptococci or enterococci, which do not cause the abrupt severe disease that is seen with acute Staph aureus endocarditis. With TTE unable to visualize valves, MAYUR is planned at [facility] and can identify severe perivavular/valvular lesions that might warrant further intervention. MAYUR is much more sensitive than TTE. However, if MAYUR does not show a vegetation, I would still treat this patient for endocarditis. The fact that he has continued to grow GPCs in pairs in his blood cultures (likely the same viridans Strep) is compelling. This sustained/continuous bacteremia without another source suggests an endovascular source. The viridans Streptococcus isolate has an elevated penicillin JESSICA >0.5. In this situation, the addition of an aminoglycoside for synergy is recommended. Suggest starting gentamicin 80 mg gentamicin q8h (1 mg/kg q8h). Continue Rocephin 2 g daily IV. Would involve Pharmacy in helping monitor and adjust gentamicin. Aim for a goal trough of <1. Can make gentamicin 80 mg twice a day if trough >1. With gentamicin, there are risks of ototoxicity and nephrotoxicity. Ototoxicity can include worsening his baseline hearing loss or potentially vestibular dysfunction. With his advanced age, I do not trying to complete the entire 6 weeks with gentamicin for synergy is likely to benefit the patient more than it might harm him. I would treat him for the first two weeks with gentamicin and Rocephin, and then the next 4 weeks with Rocephin alone. The first day of therapy should be considered the day that he has clearance of the bacteremia. If the most recent set of blood cultures from 11/09 are negative, then the anticipated end date for 2 weeks of Rocephin plus gentamicin is 11/23, which would be followed by Rocephin alone until December 21 to complete 6 weeks. If the cultures from 11/09 are still positive, it underscores the need for MAYUR to look for complicating factors. Rusty Salazar MD [facility] Infectious Diseases pager [phone]
[2018-11-09] MEDS: GENTAMICIN SULFATE 80 MG in DEXTROSE 5%-WATER 100 ML IV SCH (22:12)
[2018-11-10] MEDS: NORMAL SALINE 1000 ML 1,000 ML IV PRN ×2 (04:08→19:00)
[2018-11-10] MEDS: GABAPENTIN 100 MG CAPSULE PO SCH ×3 (05:26→22:45)
[2018-11-10] MEDS: GENTAMICIN SULFATE 80 MG in DEXTROSE 5%-WATER 100 ML IV SCH ×3 (05:26→22:44)
[2018-11-10] MEDS: TRAMADOL HCL 50 MG TABLET PO PRN ×2 (05:29→13:33)
[2018-11-10] MEDS: ACETAMINOPHEN 325 MG TABLET PO PRN (13:33)
[2018-11-10] MEDS: CEFTRIAXONE 2 GM/D5W RTU 2 GM/50 ML RTUPB IV SCH (13:34)
[2018-11-10] MEDS: FLUTICASONE/UMECLIDIN/VILANTER 100-62.5-25 MCG/DOSE IH SCH (13:34)
[2018-11-10] MEDS: FINASTERIDE 5 MG TABLET PO SCH (13:34)
[2018-11-10] MEDS: ASPIRIN 81 MG TABLET, ENT COATED PO SCH (13:35)
--- NOTE | 2018-11-10 17:03 | Progress Note ---
Provider Note Provider Note: ID Consult Note Asked by Pharmacy to review patient's chart in light of new Micro results. To summarize, patient presented from [facility] to [place] on 11/03 for altered mental status. Has baseline dementia. Was afebrile but had an elevated lactic acid. He was suspected of having sepsis from a urinary source, so blood and urine cultures were obtained. Blood cultures on 11/03 drawn from 2 different sites 45 minutes apart have a viridans Streptococcus species in all bottles. The second set also had Staphylococcus epidermidis in addition to the viridans streptococcus. Levaquin was initiated, then changed later to Rocephin. Follow up blood cultures from 11/05, drawn from one site 30 min apart, have now been identified as showing growth of Enterococcus faecalis in one bottle of each set. The Enterococcus is penicillin susceptible; there is no synergy with gent. Repeat blood cultures from 11/07, drawn from one site 30 min apart, have a GPC in pairs in one bottle of each set. Impression/Recommendations Polymicrobial bacteremia vs blood culture contamination - The subsequent recovery of Enterococcus rather than viridans Streptococci is unexpected and difficult to explain. - I do not know if any of the repeat blood cultures with Enterococcus could have been drawn off of an existing line, which might increase the potential for contamination. - A true polymicrobial bacteremia (such as from an occult intraabdominal abscess) is possible with viridans Streptococci and enterococci being normal inhabitants of the GI tract. CT scan of the abdomen might be considered to rule something like that out. - Await MAYUR. Rusty Salazar MD [facility] Infectious Diseases pager [phone]
--- NOTE | 2018-11-10 17:07 | ADVANCED CARE ---
- Diagnosis (1) UTI (urinary tract infection) Diagnosis Current: Yes (2) Bacteremia due to Streptococcus Diagnosis Current: Yes (3) Dehydration Diagnosis Current: Yes (4) COPD (chronic obstructive pulmonary disease) Diagnosis Current: Yes (5) Altered mental status Diagnosis Current: Yes Attendance: Patient's son, Rodney Sheriff. Resuscitation Status: Do Not Resuscitate Discussion: Discussed the patient's current diagnoses of gram-positive cocci bacteremia, lab and imaging results. We discussed the current recommendations are to treat for endocarditis although not confirmed due to inability to complete MAYUR and poor TTE study. Utilize this conversation to verify the patient's CODE STATUS and goals of care. His son indicates that he is a DNR/DNI. He does wish that we continue with IV fluids as necessary, IV antibiotics (including long-term antibiotic therapy and associated PICC placement) and if necessary upgrade to ICU status, telemetry monitoring, and pressor support. The patient's son indicates that he would appreciate aggressive interventions up to intubation/CPR. We did not discuss short-term or long-term alternate means of nutrition as the patient is currently eating adequately. Care Planning Goals: DNR/DNI. All other interventions; including PICC line placement when appropriate and long-term antibiotic therapy. Goal is to discharge to [place] for short-term rehab and then to live with his son, Rodney Sheriff. Time Spent: 45 minutes
--- NOTE | 2018-11-10 17:25 | PDOC PROGRESS REPORT ---
Subjective Progress Note for:: 11/10/18 Subjective:: The patient is an 88-year-old male with a past medical history of COPD, depression, recent back surgery (August 2018) who was admitted 11/03/2018 for UTI with altered mental status. The patient was seen on afternoon rounds with his son present. He is found resting in bed comfortably on room air. He is awake and orientated to self; conversationally appropriate, but pleasantly confused today. He denies fever, chills, chest pain, shortness of breath, cough, abdominal pain, nausea vomiting and diarrhea. He does report persistent lower back pain. Patient's son is concerned about back pain as this was an initial symptom prior to his admission. Son reports that the patient had severe, sudden onset lower back pain worsened by ambulation approximately 2 days before development of urinary tract symptoms. He does recall that the patient's worsening confusion s eemed to coincide with the onset of back pain; at that time he thought that the confusion may have been related to pain medications. Long discussion had with the patient's son, Rodney Sheriff, regarding poly- microbial bacteremia and failed MAYUR attempt today. We discussed additional imaging to assess for occult sources of bacteremia and continued recommendations for long-term antibiotics. All questions and concerns were addressed. No concerns per nursing. Reason For Visit: UTI Physical Exam Vital Signs: Temp Pulse Resp BP Pulse Ox 97.6 F 79 16 119/40 L 96 11/10/18 15:38 11/10/18 15:38 11/10/18 15:38 11/10/18 15:38 11/10/18 15:38 Intake & Output 11/09/18 11/10/18 11/11/18 06:59 06:59 06:59 Intake Total 2310 1990 200 Output Total 1345 1750 1600 Balance 965 240 -1400 Weight 81.2 kg 83.2 kg 83.2 kg General appearance: PRESENT: no acute distress, hard of hearing, well-developed, well-nourished Head exam: PRESENT: atraumatic, normocephalic Eye exam: PRESENT: conjunctiva pink, EOMI, PERRLA. ABSENT: scleral icterus Mouth exam: PRESENT: moist, tongue midline Teeth exam: PRESENT: poor dentation Neck exam: ABSENT: carotid bruit, JVD, lymphadenopathy, thyromegaly Respiratory exam: PRESENT: clear to auscultation josy, symmetrical, unlabored. ABSENT: rales, rhonchi, wheezes Cardiovascular exam: PRESENT: RRR. ABSENT: diastolic murmur, rubs, systolic mur mur Pulses: PRESENT: normal dorsalis pedis pul Vascular exam: PRESENT: normal capillary refill GI/Abdominal exam: PRESENT: normal bowel sounds, soft. ABSENT: distended, guarding, mass, organolmegaly, rebound, tenderness Rectal exam: PRESENT: deferred Gentrourinary exam: PRESENT: indwelling catheter - Chronic Extremities exam: PRESENT: full ROM. ABSENT: calf tenderness, clubbing, pedal edema Musculoskeletal exam: PRESENT: other - Lumbar back pain Neurological exam: PRESENT: alert, awake, oriented to person, CN II-XII grossly intact, other - Pleasantly confused. ABSENT: oriented to place, oriented to time, oriented to situation, motor sensory deficit Psychiatric exam: PRESENT: appropriate affect, normal mood. ABSENT: homicidal ideation, suicidal ideation Skin exam: PRESENT: dry, intact, petechiae - Bilateral hands, warm, other - Scattered ecchymosis. ABSENT: cyanosis, rash Results Laboratory Results: 11/09/18 06:29 11/09/18 06:29 11/05/18 10:20 Blood Blood Culture - Final Enterococcus Faecalis(Group D) 11/05/18 10:50 Blood Blood Culture - Final Enterococcus Faecalis(Group D) 11/03/18 14:45 Troponin I 0.026 Impressions: Chest X-Ray 11/03/18 00:00 IMPRESSION: COPD. No acute findings. Assessment and Plan - Diagnosis (1) Bacteremia Is this a current diagnosis for this admission?: Yes Plan: Polymicrobial with unknown source. Blood culture (11/03/18) 4 of 4 bottles positive for viridans strep, 2 of 4 bottles positive for staph epidermidis. Repeat blood culture (11/05/18) 2 of 4 bottles growing enterococcus faecalis group D Repeat blood cultures (11/07/18) 2 of 4 bottles growing gram-positive cocci in pairs. Repeat blood cultures (11/09/18) have no growth at 24 hours. On exam, patient was noted to have petechia to the palms of both hands but no definitive signs of splinter hemorrhages, Osler nodes or Janeway lesions. Transthoracic echocardiogram was of poor quality; mitral valve showed prolapse and regurgitation. Other valves were not visible. Patient was transferred to [facility] for a MAYUR; unfortunately exam had to be aborted due to emesis with substantial amount of food. Dr. Frank, cardiology, recommends avoiding repeat MAYUR attempt due to high risk for aspiration. Dr. Salazar was consulted; appreciate her evaluation recommendations. Continue Rocephin 2 gm daily. Currently on gentamicin for synergy and treatment of viridans strep (PCN JESSICA is 2). We will obtain contrasted CT of the abdomen and pelvis per Dr. Salazar's recommendations to evaluate for occult intra-abdominal abscess as a source of enterococcus bacteremia. As the patient also had severe back pain, of sudden onset w/o trauma, immediately preceding his acute encephalopathy and diagnosis of UTI, will also obtain a noncontrasted MRI of the lumbar spine. (2) Bacteremia due to Streptococcus Is this a current diagnosis for this admission?: Yes Plan: As above. (3) UTI (urinary tract infection) Qualifiers: Urinary tract infection type: catheter-associated UTI Indwelling urinary catheter type: unspecified Encounter type: initial encounter Qualified Code(s): T83.511A - Infection and inflammatory reaction due to indwelling urethral catheter, initial encounter; N39.0 - Urinary tract infection, site not specified Is this a current diagnosis for this admission?: Yes Plan: Resolved. Urinalysis positive for UTI. Urine culture grew Pseudomonas sensitive to Levaquin. Multiple blood cultures positive for viridans strep (see below). Galindo catheter was exchanged on admission. 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 He is admitted to the medical floor. Infectious disease was consulted; per Dr. 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 He was been placed on IV Levaquin (appropriate for Pseudomonas in the urine as well as staph epidermidis and viridans strep and blood cultures). Received 5 days of therapy. (4) Dehydration Is this a current diagnosis for this admission?: Yes Plan: Resolved; creatinine now 0.78 with BUN of 11. Encourage p.o. fluids. Monitor with daily chemistries. (5) COPD (chronic obstructive pulmonary disease) Is this a current diagnosis for this admission?: Yes Plan: Stable and without exacerbation; currently maintaining oxygen saturations on room air. We will continue his trilogy inhaler with as needed nebulizers. (6) Altered mental status Qualifiers: Altered mental status type: unspecified Qualified Code(s): R41.82 - Altered mental status, unspecified Is this a current diagnosis for this admission?: Yes Plan: Improving; now oriented to self, intermittently place, socially appropriate and conversational. Multifactorial; strep bacteremia versus dehydration versus exacerbation of underlying dementia due to hospital environment. We will continue to monitor. Provide for patient safety. Fall precautions. Supportive care. Remaining management as above. - Time Time Spent with patient: 35 or more minutes Medications reviewed and adjusted accordingly: Yes Anticipated discharge: SNF
[2018-11-10 21:57] LABS: GENTAMICIN-TROUGH 1.8 ug/mL (<2.0)
--- NOTE | 2018-11-10 22:51 | RADIOLOGY REPORT (SQ) ---
EXAM DESCRIPTION: CT ABDOMEN PELVIS WITH IV CONTRAST COMPLETED DATE/TME: 11/10/2018 00:00 CLINICAL HISTORY: 88 years Male, Polymicrobial bacteremia; ?Occult abd abscess Comparison: None. Technique: IV contrast. Coronal and sagittal reformat. This exam was performed according to our departmental dose-optimization program, which includes automated exposure control, adjustment of the mA and/or kV according to patient size and/or use of iterative reconstruction technique. [facility]: Dose Right [facility]: CareDose [facility]: Dose Right [facility]: Teradose 4D [facility]: Modelinia LIMITATIONS: None Findings: Two enhancing lesions of the spleen measuring up to 1.7 cm each. 3.6 cm cystic lesion of the spleen. Differential etiologies include infectious, inflammatory, and neoplastic processes. Moderate splenomegaly. Recommend contrast MRI of the abdomen. Moderate left pleural effusion. Minimal right pleural effusion. Minimal bilateral dependent atelectasis-airspace opacity. Severe emphysematous lung bases including moderate bullous disease. Intramedullary samson fixation of the proximal right femur. Chavez. Stool retention. Normal appendix. Lytic irregularity at the subchondral superior L3 vertebral endplate; please see concurrent abnormal MRI, L-spine. No gross evidence of gallbladder inflammation or hepatobiliary obstruction. Likely benign renal cyst(s), not definitively characterized. No ascites. Inferior thorax, liver, gallbladder, pancreas, adrenals, renal system, gastrointestinal tract, pelvic organs, lymphatics, vasculature, and musculoskeleton appear otherwise unremarkable. IMPRESSION: 1. Two enhancing lesions of the spleen measuring up to 1.7 cm each. 3.6 cm cystic lesion of the spleen. Differential etiologies include infectious, inflammatory, and neoplastic processes. Moderate splenomegaly. Recommend contrast MRI of the abdomen. 2. Lytic irregularity at the subchondral superior L3 vertebral endplate; please see concurrent abnormal MRI, L-spine to be reported separately. 3. Moderate left pleural effusion. Minimal bibasilar atelectasis/pneumonia.
--- NOTE | 2018-11-10 23:20 | RADIOLOGY REPORT (SQ) ---
EXAM DESCRIPTION: MR LUMBAR SPINE WITHOUT IV CONTRAST COMPLETED DATE/TME: 11/10/2018 00:00 CLINICAL HISTORY: 88 years Male, bacteremia, back pain COMPARISON: None. TECHNIQUE/LIMITATION: Conventional noncontrast MRI. FINDINGS: Low signal on T1 imaging consistent with fat replacement at the upper L3 and lower L2 vertebral bodies with corresponding lytic appearance at the subchondral superior L3 endplate on concurrent CT. Recommend contrast MRI of the L-spine. 1.4 cm ovoid lesion at the L2 vertebral level with increased T2 signal and peripheral increased T1 signal. 2.5 cm intraosseous hemangioma at the T12 level. Mild scoliotic curvature. Moderate spondylosis. T11-T12, T12-L1, L1-L2: Negative. L2-L3: Mild spinal canal stenosis due to a small disc bulge and mild spondylosis. L3-L4: Moderate thecal sac compression due to a small disc bulge and moderate spondylosis. Mild bilateral foraminal stenosis. 1.3 cm cystic inflammation of the left paravertebral space at the L3 vertebral level. L4-L5: Mild/moderate spinal canal stenosis due to moderate spondylosis and minimal irregular disc bulge. L5-S1: Mild disc desiccation. Sacroiliac joints and posterior lumbar soft tissues appear grossly intact. Likely benign left renal cyst partially imaged. IMPRESSION: Fat replacement of the L3 and L4 vertebral bodies. Indeterminate 1.4 cm lesion of the L2 vertebral body. 1.3 cm cystic soft tissue lesion of the left paravertebral space at the L3 vertebral level. Differential diagnosis includes infectious and neoplastic/metastatic processes. Recommend contrast MRI of the lumbar spine.
[2018-11-11] MEDS: GENTAMICIN SULFATE 80 MG in DEXTROSE 5%-WATER 100 ML IV SCH ×2 (05:05→13:43)
[2018-11-11] MEDS: GABAPENTIN 100 MG CAPSULE PO SCH ×2 (05:06→13:43)
[2018-11-11] MEDS: TRAMADOL HCL 50 MG TABLET PO PRN (05:09)
[2018-11-11 06:36] LABS: HEMATOCRIT 37.4 % (37.9-51.0); HEMOGLOBIN 12.5 g/dL (13.5-17.0); MEAN CORPUSCULAR HEMOGLOBIN 25.1 pg (27.0-33.4); MEAN CORPUSCULAR HGB CONC 33.3 g/dL (32.0-36.0); MEAN CORPUSCULAR VOLUME 75 fl (80-97); PLATELET COUNT 173 10^3/uL (150-450); RED BLOOD COUNT 4.97 10^6/uL (4.35-5.55); RED CELL DISTRIBUTION WIDTH 16.3 % (11.5-14.0); WHITE BLOOD COUNT 6.4 10^3/uL (4.0-10.5)
[2018-11-11 06:40] LABS: ANION GAP 7 (5-19); BLOOD UREA NITROGEN 9 mg/dL (7-20); CALCIUM 8.6 mg/dL (8.4-10.2); CARBON DIOXIDE 28 mmol/L (22-30); CHLORIDE 99 mmol/L (98-107); GLUCOSE 96 mg/dL (75-110); POTASSIUM 3.7 mmol/L (3.6-5.0); SODIUM 133.7 mmol/L (137-145)
[2018-11-11] MEDS: ASPIRIN 81 MG TABLET, ENT COATED PO SCH (08:33)
[2018-11-11] MEDS: FINASTERIDE 5 MG TABLET PO SCH (08:33)
[2018-11-11] MEDS: FLUTICASONE/UMECLIDIN/VILANTER 100-62.5-25 MCG/DOSE IH SCH (08:34)
[2018-11-11] MEDS: ACETAMINOPHEN 325 MG TABLET PO PRN (11:49)
[2018-11-11] MEDS: CEFTRIAXONE 2 GM/D5W RTU 2 GM/50 ML RTUPB IV SCH (11:49)
[2018-11-11] MEDS: PIPERACILLIN SODIUM/TAZOBACTAM 3.375 GM in NORMAL SALINE 100 ML IV SCH ×2 (12:51→17:17)
[2018-11-11] MEDS: NORMAL SALINE 1000 ML 1,000 ML IV PRN (12:52)
--- NOTE | 2018-11-11 13:03 | RADIOLOGY REPORT (SQ) ---
EXAM DESCRIPTION: MRI ABDOMEN COMBO COMPLETED DATE/TIME: 11/11/2018 11:32 am REASON FOR STUDY: bacteremia; splenomegaly w/ lesions on CT N39.0 URINARY TRACT INFECTION, SITE NOT SPECIFIED COMPARISON: MRI lumbar spine 11/10/2018 CT abdomen pelvis 11/10/2018 TECHNIQUE: Multiplanar multisequence imaging performed without and with contrast including sagittal, axial and coronal T2, axial T1, axial gradient fat sat T1, axial, sagittal and coronal fat sat T1 po st contrast. CONTRAST TYPE AND DOSE: 10 mL Dotarem. RENAL FUNCTION: Not indicated. ACR Type II contrast agent associated with few, if any, unconfounded cases of NSF LIMITATIONS: None. FINDINGS: Vertebral body osteomyelitis and discitis is present at the L2-3 level. There is abnormal marrow signal from edema. Indistinct inferior L2 and upper L3 vertebral body endplates. A 3 x 1.4 cm left paraspinal/psoas abscess is present, best shown on axial T2 image . This report was dis cussed with Michelle Reeder. LIVER: Normal size. No masses. No dilated ducts. CBD normal. SPLEEN: Normal size. 3.4 cm cyst inferior aspect spleen, with fibrous rim. This correlates with the cystic lesion described on CT 11/10/2018. Smaller solid benign hemangiomas are present in the anteri or aspect of the inferior spleen, both 1.5 cm in diameter with classic benign enhancement pattern. PANCREAS: No masses. No adjacent inflammation or peripancreatic fluid collections. Pancreatic duct no t dilated. GALLBLADDER: Multiple stones in the gallbladder. No gallbladder wall thickening or pericholecystic f luid ADRENAL GLANDS: No significant masses or asymmetry. RIGHT KIDNEY AND URETER: No masses. No hydronephrosis. LEFT KIDNEY AND URETER: No masses. No hydronephrosis. 3 cm left lower pole renal cortical cyst AORTA AND VESSELS: No aneurysm. No dissection. Renal arteries, SMA, celiac without stenosis. RETROPERITONEUM: No retroperitoneal adenopathy, hemorrhage or masses. BOWEL: Not well seen ABDOMINAL WALL AND PERITONEUM: No ascites in the upper abdomen BONES: L2-3 discitis with adjacent vertebral body osteomyelitis OTHER: There is left lower lobe collapse and consolidation from atelectasis versus pneumonia. Kate lockhart discussed with Michelle Reeder IMPRESSION: L2-3 discitis with vertebral body osteomyelitis. 3 x 1.4 cm left paraspinal/ psoas absc ess adjacent to the L2-3 disc level Benign cyst spleen. Benign hemangiomas in the spleen Stones in the gallbladder without MR evidence of acute cholecystitis Left lung base consolidation atelectasis versus pneumonia. TECHNICAL DOCUMENTATION: JOB ID: [id number] [employer]- All Rights Reserved Reading location - IP/workstation name: [email or web address]
--- NOTE | 2018-11-11 13:06 | RADIOLOGY REPORT (SQ) ---
EXAM DESCRIPTION: MRI LUMBAR SPINE COMBO COMPLETED DATE/TIME: 11/11/2018 11:32 am REASON FOR STUDY: bacteremia; abn L-spine on noncontrast mri N39.0 URINARY TRACT INFECTION, SITE NO T SPECIFIED COMPARISON: MRI lumbar spine 11/10/2018 MRI abdomen 11/11/2018 CT abdomen pelvis 11/10/2018 TECHNIQUE: Sagittal and Axial imaging includes T1, T1 post gadolinium, T2, STIR and gradient echo se quences. Coronal T2/HASTE imaging. CONTRAST TYPE AND DOSE: 10 mL Dotarem. RENAL FUNCTION: Not indicated. ACR Type II contrast agent associated with few, if any, unconfounded cases of NSF LIMITATIONS: None. FINDINGS: L2-3 discitis with vertebral body osteomyelitis is present, with marrow edema and contrast enhancement along the lower half of L2 and upper half of L3. There is surrounding inflammatory jean-baptiste ge in the paraspinal soft tissues. At the level of the L2-3 disc, a 3 x 1.4 cm paraspinal abscess is present, better demonstrated on the MRI abdomen today due to motion artifact. No gross epidural abs cess. Mild bilateral L2-3 foraminal narrowing from adjacent inflammatory change along the disc emil n. Findings discussed with Michelle Reeder IMPRESSION: L2-3 discitis with adjacent vertebral body osteomyelitis. 3 x 1.4 cm left paraspinal ab scess at the L2-3 level TECHNICAL DOCUMENTATION: JOB ID: [id number] [employer]- All Rights Reserved Reading location - IP/workstation name: [email or web address]
[2018-11-11 17:04] LABS: APPEARANCE,URINE CLEAR; BILIRUBIN,URINE NEGATIVE (NEGATIVE); COLOR,URINE STRAW; GLUCOSE, URINE NEGATIVE (NEGATIVE); KETONES,URINE NEGATIVE (NEGATIVE); LEUKOCYTE ESTERASE,URINE TRACE (NEGATIVE); NITRITE,URINE NEGATIVE (NEGATIVE); PROTEIN,URINE NEGATIVE (NEGATIVE); URINE SPECIFIC GRAVITY 1.005; UROBILINOGEN,URINE NEGATIVE mg/dL (<2.0)
[2018-11-11 17:26] VITALS: BP 115/39
--- NOTE | 2018-11-11 17:38 | PDOC TRANSFER SUMMARY ---
General Admission Date/PCP: 11/03/18 16:23 MARGARET DUEÑAS MD Admission Date: 11/03/18 Accepting Facility: [facility] Accepting Physician: Dr. Rosado Resuscitation Status: Do Not Resuscitate - Transfer Diagnosis (1) Bacteremia Is this a current diagnosis for this admission?: Yes (2) Bacteremia due to Enterococcus Is this a current diagnosis for this admission?: Yes (3) Bacteremia due to Streptococcus Is this a current diagnosis for this admission?: Yes (4) Altered mental status Is this a current diagnosis for this admission?: Yes (5) COPD (chronic obstructive pulmonary disease) Is this a current diagnosis for this admission?: Yes (6) Dehydration Is this a current diagnosis for this admission?: Yes (7) Depression Is this a current diagnosis for this admission?: Yes (8) Urinary retention Is this a current diagnosis for this admission?: Yes (9) UTI (urinary tract infection) Is this a current diagnosis for this admission?: Yes (10) Paraspinal abscess Is this a current diagnosis for this admission?: Yes (11) Discitis of lumbar region Is this a current diagnosis for this admission?: Yes (12) Osteomyelitis of lumbar vertebra Is this a current diagnosis for this admission?: Yes - Transfer Medications Home Medications: Acetaminophen [Tylenol 325 mg Tablet] 650 mg PO Q4HP PRN 11/03/18 Aspirin [Ecotrin 81 mg EC Tablet] 81 mg PO QAM 11/03/18 Bupropion HCl [Wellbutrin Sr 150 mg Tablet] 150 mg PO Q12@0800,199911/03/18 Finasteride [Proscar 5 mg Tablet] 5 mg PO QAM 11/03/18 Fluticasone/Umeclidin/Vilanter [Trelegy 100-62.5-25 Mcg Ellipta 14 Dose/Dpi] 1 puff IH QAM 11/03/18 Gabapentin [Neurontin 100 mg Capsule] 200 mg PO QAM 11/03/18 Gabapentin [Neurontin 100 mg Capsule] 300 mg PO QPM@199911/03/18 Ipratropium/Albuterol Sulfate [Duoneb 3 ml Ampul] 3 ml NEB Q4HP PRN 11/03/18 Oxycodone HCl [Oxy-Ir 5 mg Tablet] 5 mg PO BID@0800,1300 11/03/18 Tramadol HCl [Ultram 50 mg Tablet] 50 mg PO Q6HP PRN 11/03/18 Transfer Medications: Current Medications Acetaminophen (Tylenol 325 Mg Tablet) 650 mg PO Q4HP PRN PRN Reason: FOR PAIN SCALE 4-5 Stop: 12/03/18 18:36 Last Admin: 11/11/18 11:49 Dose: 650 mg Documented by: Albuterol/Ipratropium (Duoneb 3 Ml Ampul) 3 ml NEB RTQ4HP PRN PRN Reason: FOR SOB/WHEEZING Stop: 12/04/18 07:41 Last Admin: 11/08/18 01:52 Dose: 3 ml Documented by: Aspirin (Ecotrin 81 Mg Ec Tablet) [facility] [place] Stop: 12/04/18 07:59 Last Admin: 11/11/18 08:33 Dose: 81 mg Documented by: Finasteride (Proscar 5 Mg Tablet) [facility] [place] Stop: 12/04/18 07:59 Last Admin: 11/11/18 08:33 Dose: 5 mg Documented by: Fluticasone/Vilanterol (Trelegy 100-62.5-25 Mcg Ellipta 14 Dose/Dpi) 1 inh IH [facility] Stop: 12/04/18 07:59 Last Admin: 11/11/18 08:34 Dose: 1 inhaler Documented by: Gabapentin (Neurontin 100 Mg Capsule) 100 mg PO Q8 [facility] Stop: 12/03/18 21:59 Last Admin: 11/11/18 13:43 Dose: 100 mg Documented by: Ceftriaxone Sodium/Dextrose (Rocephin Rtu 2 Gm/D5w 50 Ml Premix Bag) 2 gm in 50 mls @ 100 mls/hr IV DAILY [facility] Stop: 11/15/18 09:59 Last Infusion: 11/11/18 12:25 Dose: Infused Documented by: Gentamicin Sulfate 80 mg/ (Dextrose) 100 mls @ 100 mls/hr IV Q8 [facility] Stop: 11/16/18 21:59 Last Infusion: 11/11/18 14:50 Dose: Infused Documented by: Sodium Chloride (Nacl 0.9% 1000 Ml Iv Soln) 1,000 mls @ 25 mls/hr IV CONTINUOUS PRN PRN Reason: THIS MED IS NOT "PRN" Stop: 12/07/18 15:14 Last Admin: 11/11/18 12:52 Dose: 25 mls/hr Documented by: Piperacillin Sod/Tazobactam (Sod 3.375 gm/ Sodium Chloride) 100 mls @ 200 mls/hr IV Q6 [facility] Stop: 11/18/18 11:59 Last Infusion: 11/11/18 13:35 Dose: Infused Documented by: Sodium Chloride (Saline Flush 2.5 Ml Monoject Prefil Syrin) 2.5 ml IV Q8 [facility] Stop: 12/03/18 21:59 Last Admin: 11/11/18 13:43 Dose: 2.5 ml Documented by: - Allergies Allergies/Adverse Reactions: No Known Allergies Allergy (Unverified 08/13/18 13:06) - Diet/Activity Discharge Diet: Regular Discharge Activity: Bedrest Hospital Course Hospital Course: Per H&P by Gissel Goldsmith PA-C: ELMER VERA is a 88 year old male who had back surgery August 2018 *[correction; patient had Rt ORIF in Aug [address] Ballard; no Hx of back surgery]. Since then he has had chronic back pain, and resided at [facility]. Much of the following information obtained from his son. Seems he had a Chavez at least for the last several weeks. Son reports his father was diagnosed with a urinary tract infection approximately 1-2 weeks ago. Reports he did take an oral antibiotics, but did not get better. Reports his mentation worsened over the last 2-3 days. He was brought to the emergency room due to his decreased mentation. Patient has a past history of urinary tract infections. At time of evaluation he is alert and oriented to self, hospital, month. White blood cell count was normal. Elevated lactic acid. Urine is very concentrated. Emergency room change Chavez. Overall the patient appears stable. He does not appear comfortable due to his hip pain. 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 Patient was brought to the emergency department by his son for severe lower back pain that proceeded urinary tract infection by 2-3 days with associated decrease in mental status. At baseline, patient is oriented x4, lives independently, and only has mild forgetfulness. The patient's chronic Chavez catheter was exchanged on day of admission. Urine culture grew Pseudomonas aeruginosa for which the patient received IV Levaquin. The leukocytosis, lactic acid, and dehydration resolved; patient's mental status improved as he became more alert and interactive with staff members. Repeat urinalysis is negative for UTI. Unfortunately, his initial set of blood cultures (11/03/18) resulted in 4 of 4 bottles positive for viridans strep, 2 of 4 bottles positive for staph epidermidis. Repeat blood culture (11/05/18) 2 of 4 bottles grew enterococcus faecalis group D. Repeat blood cultures (11/07/18) 2 of 4 bottles continue growing enterococcus faecalis group D. Repeat blood cultures (11/09/18) are continuing to grow gram (+) cocci Dr. Salazar ([facility]) was consulted prior to identification/sensitivities were available; only knew multiple culture sets w/ Gram positive cocci were growing. Antibiotic regimen was changed to IV Rocephin with gentamicin for synergy (the strep viridans had a PCN JESSICA of 2). ID recommended 2 weeks of concurrent Gentamicin; Day #2 of Gent, and full 6 week treatment for [at that time] presumed endocarditis. Zosyn was added today as sensitivities from enterococcus culture are now available and indicate PCN sensitivity. For clarity; all of the above cultures were obtained after receiving IV Levaquin x 3 doses followed by IV Rocephin and prior to addition of Gentamycin (for strep viridans in initial cultures) and Zosyn added today for PCN sensitivity now known in enterococcus cultures. Evaluation for endocarditis was unrevealing. Transthoracic echocardiogram was of poor quality; mitral valve showed prolapse and regurgitation. Other valves were not visible. Patient was transferred to [facility] yesterday for a MAYUR; unfortunately exam had to be aborted due to emesis with substantial amount of food. Dr. Frank, cardiology, recommended avoiding repeat MAYUR attempt due to high risk for aspiration. Therefore, survey for more occult sources of bacteremia was undergone. A contrasted CT of the abdomen to evaluate for intra-abdominal abscesses identified splenomegaly with cystic lesions; follow-up contrasted abdominal MRI demonstrated a 3.4 cm cyst to inferior aspect of the spleen with a fibrous rim and two smaller solid benign hemangiomas present to the anterior aspect of the inferior spleen measuring 1.5 cm each in diameter with classic benign enhancement patterns. He was found to have cholelithiasis without cholecystitis and left lung base consolidation suggestive of atelectasis versus pneumonia. A lumbar spine MRI with and without contrast demonstrated L2-3 discitis with vertebral body osteomyelitus and a 3 x 1.4 cm left paraspinal/psoas abscess adjacent to the L2-3 disc level. [facility] was contacted to arrange for transfer where orthopedic spine surgeon, neurosurgery, and infectious disease specialty services are available. Spoke with Neurosurgery who stated they would be available to consult but deferred admission to hospitalist service. Spoke with Dr. Rosado, hospitalist, who has graciously agreed to accept the patient into his care. Physical Exam Vital Signs: Temp Pulse Resp BP Pulse Ox 97.8 F 84 22 H 126/39 H 96 11/11/18 12:00 11/11/18 15:09 11/11/18 12:00 11/11/18 12:00 11/11/18 12:00 Intake & Output 11/10/18 11/11/18 11/12/18 06:59 06:59 06:59 Intake Total 1990 1450 797 Output Total 1750 2600 Balance 240 -1150 797 Weight 83.2 kg 81.2 kg General appearance: PRESENT: no acute distress, hard of hearing, well-developed, well-nourished Head exam: PRESENT: atraumatic, normocephalic Eye exam: PRESENT: conjunctiva pink, EOMI, PERRLA. ABSENT: scleral icterus Mouth exam: PRESENT: moist, tongue midline Teeth exam: PRESENT: poor dentation Neck exam: ABSENT: carotid bruit, JVD, lymphadenopathy, thyromegaly Respiratory exam: PRESENT: clear to auscultation josy, decreased breath sounds - bibasilar, symmetrical, unlabored. ABSENT: rales, rhonchi, wheezes Cardiovascular exam: PRESENT: RRR. ABSENT: diastolic murmur, rubs, systolic murmur Pulses: PRESENT: normal dorsalis pedis pul Vascular exam: PRESENT: normal capillary refill GI/Abdominal exam: PRESENT: normal bowel sounds, soft, tenderness - LUQ/flank. ABSENT: distended, guarding, mass, organolmegaly, rebound Rectal exam: PRESENT: deferred Gentrourinary exam: PRESENT: indwelling catheter - chronic; echanged this admission Extremities exam: PRESENT: full ROM - generlized weakness. ABSENT: calf tenderness, clubbing, pedal edema Musculoskeletal exam: PRESENT: tenderness - lumbar back pain Neurological exam: PRESENT: alert, awake, oriented to person, CN II-XII grossly intact, other - Intermittently orientated to place; pleasantly confused otherwise but conversational and socially appropriate. ABSENT: oriented to place, oriented to time, oriented to situation, motor sensory deficit Psychiatric exam: PRESENT: appropriate affect, normal mood. ABSENT: homicidal ideation, suicidal ideation Skin exam: PRESENT: dry, intact, warm, other - scattered echymosis. ABSENT: cyanosis, rash Results Laboratory Results: 11/11/18 05:51 11/11/18 05:51 11/10/18 11/11/18 11/11/18 21:27 05:51 05:51 WBC 6.4 RBC 4.97 Hgb 12.5 L Hct 37.4 L MCV 75 L MCH 25.1 L MCHC 33.3 RDW 16.3 H Plt Count 173 Sodium 133.7 L Potassium 3.7 Chloride 99 Carbon Dioxide 28 Anion Gap 7 BUN 9 Creatinine 0.64 0.65 Est GFR ( Amer) > 60 > 60 Est GFR (Non-Af Amer) > 60 > 60 Glucose 96 Calcium 8.6 11/07/18 15:45 Blood Blood Culture - Final Enterococcus Faecalis(Group D) 11/05/18 10:20 Blood Blood Culture - Final Enterococcus Faecalis(Group D) 11/05/18 10:50 Blood Blood Culture - Final Enterococcus Faecalis(Group D) 11/03/18 14:45 Troponin I 0.026 Impressions: Chest X-Ray 11/03/18 00:00 IMPRESSION: COPD. No acute findings. Abdomen/Pelvis CT 11/10/18 00:00 IMPRESSION: 1. Two enhancing lesions of the spleen measuring up to 1.7 cm each. 3.6 cm cystic lesion of the spleen. Differential etiologies include infectious, inflammatory, and neoplastic processes. Moderate splenomegaly. Recommend contrast MRI of the abdomen. 2. Lytic irregularity at the subchondral superior L3 vertebral endplate; please see concurrent abnormal MRI, L-spine to be reported separately. 3. Moderate left pleural effusion. Minimal bibasilar atelectasis/pneumonia. Abdomen MRI 11/11/18 00:00 IMPRESSION: L2-3 discitis with vertebral body osteomyelitis. 3 x 1.4 cm left paraspinal/ psoas abscess adjacent to the L2-3 disc level Benign cyst spleen. Benign hemangiomas in the spleen Stones in the gallbladder without MR evidence of acute cholecystitis Left lung base consolidation atelectasis versus pneumonia. Lumbar Spine MRI 11/11/18 00:00 IMPRESSION: L2-3 discitis with adjacent vertebral body osteomyelitis. 3 x 1.4 cm left paraspinal abscess at the L2-3 level Plan Discharge Plan: Transfer to [facility] into the care of Dr. Rosado. Time Spent: Greater than 30 Minutes
--- NOTE | 2018-11-11 19:22 | RADIOLOGY REPORT (SQ) ---
EXAM DESCRIPTION: CT CHEST WITH COMPLETED DATE/TIME: 11/11/2018 6:41 pm REASON FOR STUDY: pleural effusions, splenic lesions; ?abscess/CA N39.0 URINARY TRACT INFECTION, SI TE NOT SPECIFIED COMPARISON: None. TECHNIQUE: CT scan of the chest performed using helical scanning technique with dynamic intravenous contrast injection. Images reviewed with lung, soft tissue and bone windows. Reconstructed coronal and sagittal MPR and MIP images reviewed. All images stored on PACS. All CT scanners at this facility use dose modulation, iterative reconstruction, and/or weight based d osing when appropriate to reduce radiation dose to as low as reasonably achievable (ALARA). [facility]: Dose Right [facility]: CareDose [facility]: Dose Right [facility]: Teradose 4D [facility]: [employer] CONTRAST TYPE AND DOSE: contrast/concentration: Isovue 350.00 mg/ml; Total Contrast Delivered: 80.0 ml; Total Saline Delivered: 49.9 ml RENAL FUNCTION: BUN 9 creatinine 0.65. RADIATION DOSE: CT Rad equipment meets quality standard of care and radiation dose reduction techniq ues were employed. CTDIvol: 11.3 mGy. DLP: 473 mGy-cm. . LIMITATIONS: None. FINDINGS: LUNGS AND PLEURA: Marked emphysematous changes with extensive bullae. Large bullae in the left lung. Diffuse parenchymal scarring. Basilar atelectasis. Large left pleural effusion and sma ll right pleural effusion. HILAR AND MEDIASTINAL STRUCTURES: No identified masses or abnormal nodes. HEART AND VASCULAR STRUCTURES: No aneurysm or dissection. No central pulmonary emboli. No pericardi al effusion. HARDWARE: None in the chest. UPPER ABDOMEN: Cysts in the left kidney, not completely imaged. Splenic lesions evaluated separately were not included on the current study. Limited exam. THYROID AND OTHER SOFT TISSUES: No masses. No adenopathy. BONES: No significant finding. OTHER: No other significant finding. IMPRESSION: SEVERE BULLOUS EMPHYSEMA WITH PARENCHYMAL SCARRING AND BASILAR ATELECTASIS. LARGE LEFT PLEURAL EFFUSION AND SMALL RIGHT PLEURAL EFFUSION. TECHNICAL DOCUMENTATION: JOB ID: [id number] Quality ID # [id number]: Final reports with documentation of one or more dose reduction techniques (e.g., Au tomated exposure control, adjustment of the mA and/or kV according to patient size, use of iterative reconstruction technique) 2010 [employer]- All Rights Reserved Reading location - IP/workstation name: [email or web address]
== END 2018-11-11 20:01 | disposition short-term general hospital (02) | DRG 94 ==
LOC: ER 14:01 → OBSVTOIN 16:23 → EH 16:23 → 4W 23:14 → 4N 11-04 06:10 → 2N 11-06 00:31 → 5 11-11 11:29
PROVIDERS: ADMIT Family Medicine; ATTEND Hospitalist
DX: G06.1 Intraspinal abscess and granuloma (principal); K68.12 Psoas muscle abscess; R78.81 Bacteremia; T83.511A Infection and inflammatory reaction due to indwelling urethral catheter, initial encounter; N39.0 Urinary tract infection, site not specified; M46.26 Osteomyelitis of vertebra, lumbar region; G93.40 Encephalopathy, unspecified; B95.2 Enterococcus as the cause of diseases classified elsewhere; B95.5 Unspecified streptococcus as the cause of diseases classified elsewhere; J44.9 Chronic obstructive pulmonary disease, unspecified; F32.9 Major depressive disorder, single episode, unspecified; Y84.6 Urinary catheterization as the cause of abnormal reaction of the patient, or of later complication, without mention of misadventure at the time of the procedure; E86.0 Dehydration; B96.5 Pseudomonas (aeruginosa) (mallei) (pseudomallei) as the cause of diseases classified elsewhere; K80.20 Calculus of gallbladder without cholecystitis without obstruction; G89.29 Other chronic pain; R23.3 Spontaneous ecchymoses; F03.90 Unspecified dementia, unspecified severity, without behavioral disturbance, psychotic disturbance, mood disturbance, and anxiety; R33.9 Retention of urine, unspecified; Z87.81 Personal history of (healed) traumatic fracture; Z91.81 History of falling; Z87.891 Personal history of nicotine dependence
CPT/HCPCS: 36415; 51702; 71045; 71260; 72148; 72158; 74177; 74183; 80048; 80053; 80170; 81001; 82565; 82803; 82962; 83605; 83735; 84484; 85025; 85027; 85610; 87040; 87077; 87086; 87088; 87186; 93005; 93010; 93306; 94640; 96361; 96365; 99285; A9576; J0696; J1580; J1956; J2543; J3490; J7030; J7050; J7620

== ENCOUNTER 2018-11-27 11:35 | Emergency (ER) | payer MEDICARE ==
[2018-11-27] MEDS ORDERED: NORMAL SALINE 1000 ML 1,000 ML IV PRN (11:56)
[2018-11-27 13:05] LABS: VENOUS BLOOD BASE EXCESS 4.2 mmol/L; VENOUS BLOOD HCO3 29.7 mmol/L (20-32); VENOUS BLOOD PCO2 48.2 mmHg (35-63); VENOUS BLOOD PH 7.41 (7.30-7.42)
[2018-11-27 13:07] LABS: ABSOLUTE EOSINOPHILS # (AUTO) 0.2 10^3/uL (0.0-0.6); ABSOLUTE MONOCYTES (AUTO) 0.6 10^3/uL (0.1-1.4); ABSOLUTE NEUT (AUTO) 4.2 10^3/uL (1.7-8.2); BASOPHILS % (AUTO) 0.5 % (0-2); EOSINOPHILS % (AUTO) 2.6 % (0-6); HEMATOCRIT 36.5 % (37.9-51.0); HEMOGLOBIN 12.2 g/dL (13.5-17.0); LYMPHOCYTES % (AUTO) 16.2 % (13-45); MEAN CORPUSCULAR HEMOGLOBIN 25.5 pg (27.0-33.4); MEAN CORPUSCULAR HGB CONC 33.5 g/dL (32.0-36.0); MEAN CORPUSCULAR VOLUME 76 fl (80-97); MONOCYTES % (AUTO) 10.2 % (3-13); PLATELET COUNT 162 10^3/uL (150-450); RED CELL DISTRIBUTION WIDTH 17.7 % (11.5-14.0); SEGMENTED NEUTROPHILS % (AUTO) 70.5 % (42-78); TOTAL CELLS COUNTED % (AUTO) 100 %; WHITE BLOOD COUNT 5.9 10^3/uL (4.0-10.5)
[2018-11-27 13:09] LABS: APPEARANCE,URINE SLIGHTLY-CLOUDY; BILIRUBIN,URINE NEGATIVE (NEGATIVE); COLOR,URINE YELLOW; GLUCOSE, URINE NEGATIVE (NEGATIVE); KETONES,URINE NEGATIVE (NEGATIVE); LEUKOCYTE ESTERASE,URINE MODERATE (NEGATIVE); NITRITE,URINE NEGATIVE (NEGATIVE); PROTEIN,URINE NEGATIVE (NEGATIVE); URINE SPECIFIC GRAVITY 1.019; UROBILINOGEN,URINE NEGATIVE mg/dL (<2.0)
[2018-11-27 13:30] LABS: ALANINE AMINOTRANSFERASE 26 U/L (21-72); ALKALINE PHOSPHATASE 112 U/L (38-126); ANION GAP 7 (5-19); ASPARTATE AMINO TRANSFERASE 17 U/L (17-59); BILIRUBIN,DIRECT 0.3 mg/dL (0.0-0.4); BILIRUBIN,TOTAL 0.5 mg/dL (0.2-1.3); BLOOD UREA NITROGEN 14 mg/dL (7-20); CALCIUM 9.2 mg/dL (8.4-10.2); CARBON DIOXIDE 29 mmol/L (22-30); CHLORIDE 98 mmol/L (98-107); CREATINE KINASE 25 U/L (55-170); GLUCOSE 79 mg/dL (75-110); POTASSIUM 4.1 mmol/L (3.6-5.0); SODIUM 134.3 mmol/L (137-145); TOTAL PROTEIN 6.1 g/dL (6.3-8.2)
--- NOTE | 2018-11-27 13:36 | RADIOLOGY REPORT (SQ) ---
EXAM DESCRIPTION: CT HEAD WITHOUT COMPLETED DATE/TIME: 11/27/2018 1:09 pm REASON FOR STUDY: Altered mental status, hyperreflexic COMPARISON: 08/13/2018 TECHNIQUE: Axial images acquired through the brain without intravenous contrast. Images reviewed wi th bone, brain and subdural windows. Additional sagittal and coronal reconstructions were generated. Images stored on PACS. All CT scanners at this facility use dose modulation, iterative reconstruction, and/or weight based d osing when appropriate to reduce radiation dose to as low as reasonably achievable (ALARA). [facility]: Dose Right [facility]: CareDose [facility]: Dose Right [facility]: Teradose 4D [facility]: [employer]MetWatch RADIATION DOSE: CT Rad equipment meets quality standard of care and radiation dose reduction techniq ues were employed. CTDIvol: 53.2 mGy. DLP: 1177 mGy-cm. LIMITATIONS: None. FINDINGS: VENTRICLES: Prominent, commensurate with the sulci. The cisterns are patent. CEREBRUM: Chronic small vessel ischemic changes. No masses. No hemorrhage. No midline shift. No evidence for acute infarction CEREBELLUM: No masses. No hemorrhage. No alteration of density. No evidence for acute infarction. EXTRAAXIAL SPACES: Age related involutional change. No fluid collections. No masses. ORBITS AND GLOBE: No intra- or extraconal masses. Normal contour of globe without masses. CALVARIUM: No fracture. Pneumatization of the posterior clinoid fossa on the right, normal anatomic v ariant. PARANASAL SINUSES: Chronic mild sphenoid sinus disease. SOFT TISSUES: No mass or hematoma. OTHER: Atherosclerotic changes involving the cavernous portion of the internal carotid arteries and the intracranial portion of the vertebral arteries. IMPRESSION: 1. No significant interval changes since the prior examination dated 08/13/2018. No ac [place] intracranial abnormality. 2. Atrophy and chronic small vessel ischemic changes. EVIDENCE OF ACUTE STROKE: NO. COMMENT: Quality ID # [id number]: Final reports with documentation of one or more dose reduction techniques (e.g., Automated exposure control, adjustment of the mA and/or kV according to patient size, use of iterative reconstruction technique) TECHNICAL DOCUMENTATION: JOB ID: [id number] [employer]- All Rights Reserved Reading location - IP/workstation name: [email or web address]
--- NOTE | 2018-11-27 13:42 | RADIOLOGY REPORT (SQ) ---
EXAM DESCRIPTION: CHEST SINGLE VIEW COMPLETED DATE/TIME: 11/27/2018 1:20 pm REASON FOR STUDY: alterred LOC COMPARISON: 11/03/2018 EXAM PARAMETERS: NUMBER OF VIEWS: One view. TECHNIQUE: Single frontal radiographic view of the chest acquired. RADIATION DOSE: NA LIMITATIONS: None. FINDINGS: LUNGS AND PLEURA: Findings of COPD, unchanged. Bibasilar scar or atelectasis more so on the left, stable finding. No acute pulmonary consolidation. No pneumothorax or pleural effusion. MEDIASTINUM AND HILAR STRUCTURES: No masses. Contour normal. HEART AND VASCULAR STRUCTURES: Heart normal in size. Normal vasculature. BONES: No acute findings. HARDWARE: None in the chest. OTHER: No other significant finding. IMPRESSION: 1. Findings of COPD, unchanged from the prior examination dated 11/03/2018. Stable biba silar atelectasis or scar. No acute findings. TECHNICAL DOCUMENTATION: JOB ID: [id number] [facility]- All Rights Reserved Reading location - IP/workstation name: [email or web address]
--- NOTE | 2018-11-27 17:44 | ER Document Report ---
Entered by DONNA REED SCRIBE 11/27/18 1230 Acting as scribe for:ALLYSON VIVAS MD ED General - General Chief Complaint: Altered Mental Status Stated Complaint: ALTERED MENTAL STATUS Time Seen by Provider: 11/27/18 11:52 Primary Care Provider: MARGARET DUEÑAS MD [Primary Care Provider] - Follow up tomorrow Mode of Arrival: Medic Information source: Relative Notes: Patient is an 88 year old male with dementia was sent to the emergency department from [facility] accompanied by son complaining of altered mental status onset 6 days ago. Son states the patient was discharged from [facility] on 11/18/2018 with a baseline mental status. He states three days later, his mental status began to decline and the patient would not walk around or be responsive. He states this morning, the [facility] sent the patient here due to him flailing his around around and not responding to staff. Son also complains of left sided posterior neck pain. Patient was sent to [facility] on 11/03/2018 due to bacteremia due to Entercoccus and Streptococcus, alter mental status, paraspinal abscess, discitis of lumbar region, osteomyelitis of lumbar vertebra. Patient's son, Brooke, phone number: [phone]. TRAVEL OUTSIDE OF THE [place] IN LAST 30 DAYS: No - Related Data Allergies/Adverse Reactions: No Known Allergies Allergy (Unverified 08/13/18 13:06) Past Medical History - General Information source: Patient - Social History Smoking Status: Former Smoker Cigarette use (# per day): No Chew tobacco use (# tins/day): No Smoking Education Provided: No Lives with: [facility] Family History: Reviewed & Not Pertinent Pulmonary Medical History: Reports: Hx COPD Psychiatric Medical History: Reports: Hx Depression Past Surgical History: Reports: Hx Orthopedic Surgery - L ring finger amputation, ORIF R hip Review of Systems - Review of Systems Constitutional: See HPI EENT: No symptoms reported Cardiovascular: No symptoms reported Respiratory: No symptoms reported Gastrointestinal: No symptoms reported Genitourinary: No symptoms reported Male Genitourinary: No symptoms reported Musculoskeletal: No symptoms reported Skin: No symptoms reported, Change in color Neurological/Psychological: See HPI -: Yes All other systems reviewed and negative Physical Exam - Vital signs Vitals: Temp Resp BP Pulse Ox 98.7 F 24 H 111/48 L 94 11/27/18 11:45 11/27/18 11:45 11/27/18 11:45 11/27/18 11:45 - Notes Notes: GENERAL: Sleeping, briefly awakens to palpation of neck and bilateral feet. No acute distress. HEAD: Normocephalic, atraumatic. EYES: Pupils equal, round, and reactive to light. Extraocular movements intact. ENT: Patient is mouth breathing, oral mucosa is quite dry. Saliva is thick and stringy. NECK: Flexing the head neck forward shows some discomfort in the neck but there is no nuchal rigidity. Palpating the neck when the patient is laying back flat and relaxed produces pain on the left lower posterior lateral neck such that the patient will grimace and reach up and grab at my hand. Palpating similar area on the right side of the neck does not produce a pain response. Appear tender to the left posterior cervical muscles. LUNGS: Clear to auscultation bilaterally, no wheezes, rales, or rhonchi. No respiratory distress. HEART: Regular rate and rhythm. No murmurs, gallops, or rubs. ABDOMEN: Soft, non-tender. Non-distended. Bowel sounds present in all 4 quadrants. No guarding, rigidity, or rebound. EXTREMITIES: Moves all 4 extremities spontaneously. No edema, radial and dorsalis pedis pulses 2/4 bilaterally. No cyanosis. NEUROLOGICAL: Sleeping, briefly awakens to palpation of neck and bilateral feet. Questionably positive Babinski reflex on the right. Brief nonsustained clonus to both wrists and ankles. PSYCH: Sleeping. Easily aroused with noxious stimulus. SKIN: Warm, dry, normal turgor. No rashes or lesions noted. Course - Re-evaluation Re-evalutation: 11/27/18 14:16 At this time the patient is alert. He does converse somewhat, mostly just answering questions. He states that he does feel okay and does smile and laugh at jokes. 11/27/18 16:16 Patient is now had 1 L normal saline. He is trying to sit up. He is smiling. When asked how he feels he states "pretty good". His family is not present at this time, however I would suspect that he is back to his baseline given how alert, wide eyed and communicative as he is. The patient does have a DNR bracelet on. CT scan does not show acute changes. His depressed mental status along with ankle and wrist clonus could have been due to a TIA. He should follow-up with his primary care provider tomorrow and check on the status of the urine culture. He does have a chronic Chavez catheter, he is on IV antibiotics for his discitis, and osteomyelitis of the lumbar spine. - Vital Signs Vital signs: Temp Pulse Resp BP Pulse Ox 98.4 F 72 16 126/78 H 96 11/27/18 18:07 11/27/18 18:07 11/27/18 18:07 11/27/18 18:07 11/27/18 18:07 - Laboratory Result Diagrams: 11/27/18 12:40 11/27/18 12:40 Laboratory results interpreted by me: 11/27/18 11/27/18 11/27/18 12:40 12:40 12:40 Hgb 12.2 L Hct 36.5 L MCV 76 L MCH 25.5 L RDW 17.7 H Sodium 134.3 L Creatine Kinase 25 L Total Protein 6.1 L Albumin 3.0 L Urine Blood SMALL H Ur Leukocyte Esterase MODERATE H - Diagnostic Test Radiology reviewed: Image reviewed, Reports reviewed - Chest x-ray shows COPD with no acute changes. CT scan of the head shows chronic changes with nothing acute. - EKG Interpretation by Me EKG shows normal: Sinus rhythm, [place], Intervals, QRS Complexes. abnormal: ST-T Waves - Borderline anterior lateral T abnormalities Rate: Normal - 94 Rhythm: NSR P Waves: LAE When compared to previous EKG there are: No significant change Critical Care Note - Critical Care Note Total time excluding time spent on procedures (mins): 30 Discharge - Discharge Clinical Impression: Altered mental status Qualifiers: Altered mental status type: unspecified Qualified Code(s): R41.82 - Altered mental status, unspecified Condition: Stable Disposition: HOME-SNF (ED ONLY) Additional Instructions: Altered Mental Status An altered mental status is a change in the normal functioning of the brain. This alteration of function can range from minor decreased brain function with some forgetfulness and confusion to complete loss of consciousness and coma. There are many possible causes of an altered mental status and include brain injuries such as trauma or strokes, problems with oxygen supply to the brain, fever and infections of the brain and/or elsewhere in the body, metabolic abnormalities such as low or high blood sugar, overdoses or excessive medication ingestion, and mental and psychiatric illnesses. Sometimes the altered mental status resolves and a definite cause is not determined. If a cause for your altered mental status was found, it has likely been corrected. Your evaluation has not shown any condition that requires that you be admitted to the hospital. It is believed that you are safe to leave and r eturn to your home. If you have a return of your symptoms, you should return for re-evaluation. After you received a liter of normal saline intravenously, and you had been sleeping for a couple hours, you became wide awake alert and talking. At this time there is no way to definitively explain your decreased mental status which has now completely resolved. Your lab work is unremarkable. Your urine does show evidence of contamination or infection, however you are on an antibiotic at this time and any change in your antibiotic should be guided by the culture of the urine. You should follow-up with your primary care provider to check on the urine cultures. RETURN TO THE EMERGENCY ROOM IF ANY NEW OR WORSENING SYMPTOMS. Referrals: MARGARET DUEÑAS MD [Primary Care Provider] - Follow up tomorrow Chris Attestation: 11/27/18 12:36 I personally performed the services described in the documentation, reviewed and edited the documentation which was dictated to the scribe in my presence, and it accurately records my words and actions. I personally performed the services described in the documentation, reviewed and edited the documentation which was dictated to the scribe in my presence, and it accurately records my words and actions.
[2018-11-27 18:08] VITALS: BP 126/78
--- NOTE | 2018-11-27 20:00 | EKG REPORT ---
SEVERITY:- ABNORMAL ECG - SINUS RHYTHM PROBABLE LEFT ATRIAL ABNORMALITY BORDERLINE T ABNORMALITIES, ANT-LAT LEADS BORDERLINE PROLONGED QT INTERVAL : Confirmed by: Nadine Braden MD 27-Nov-2018 19:59:41
== END 2018-11-27 18:08 ==
LOC: ER 11:35
DX: R41.82 Altered mental status, unspecified (principal); F03.90 Unspecified dementia, unspecified severity, without behavioral disturbance, psychotic disturbance, mood disturbance, and anxiety; Z87.891 Personal history of nicotine dependence; J44.9 Chronic obstructive pulmonary disease, unspecified
CPT/HCPCS: 93005; 99291; 96360; 96361; 36415; 87040; 87086; 82550; 85025; 80053; 81001; 84484; 82803; 83605; 71045; 70450; 93010; J7030

== ENCOUNTER 2018-12-13 11:30 | Emergency (ER) | payer MEDICARE ==
[2018-12-13] MEDS ORDERED: LIDOCAINE 2% URO-JET 5 ML KIT MM ONE (11:47)
[2018-12-13] MEDS ORDERED: LIDOCAINE 2% URO-JET 5 ML KIT ONE (11:48)
[2018-12-13 15:10] LABS: ABSOLUTE EOSINOPHILS # (AUTO) 0.1 10^3/uL (0.0-0.6); ABSOLUTE LYMPHOCYTES (AUTO) 0.7 10^3/uL (0.5-4.7); ABSOLUTE MONOCYTES (AUTO) 0.5 10^3/uL (0.1-1.4); ABSOLUTE NEUT (AUTO) 4.8 10^3/uL (1.7-8.2); BASOPHILS % (AUTO) 0.7 % (0-2); EOSINOPHILS % (AUTO) 2.1 % (0-6); HEMOGLOBIN 12.9 g/dL (13.5-17.0); LYMPHOCYTES % (AUTO) 11.4 % (13-45); MEAN CORPUSCULAR HEMOGLOBIN 25.1 pg (27.0-33.4); MEAN CORPUSCULAR HGB CONC 32.1 g/dL (32.0-36.0); MEAN CORPUSCULAR VOLUME 78 fl (80-97); PLATELET COUNT 109 10^3/uL (150-450); RED BLOOD COUNT 5.13 10^6/uL (4.35-5.55); RED CELL DISTRIBUTION WIDTH 18.4 % (11.5-14.0); SEGMENTED NEUTROPHILS % (AUTO) 77.8 % (42-78); TOTAL CELLS COUNTED % (AUTO) 100 %; WHITE BLOOD COUNT 6.2 10^3/uL (4.0-10.5)
[2018-12-13 15:18] LABS: INTERNATIONAL RATION (INR) 1.07; PROTHROMBIN TIME 14.5 SEC (11.4-15.4)
[2018-12-13 15:28] LABS: ALANINE AMINOTRANSFERASE 21 U/L (21-72); ALBUMIN 2.9 g/dL (3.5-5.0); ALKALINE PHOSPHATASE 90 U/L (38-126); ANION GAP 9 (5-19); ASPARTATE AMINO TRANSFERASE 21 U/L (17-59); BILIRUBIN,DIRECT 0.4 mg/dL (0.0-0.4); BILIRUBIN,TOTAL 0.6 mg/dL (0.2-1.3); BLOOD UREA NITROGEN 20 mg/dL (7-20); CALCIUM 8.9 mg/dL (8.4-10.2); CARBON DIOXIDE 33 mmol/L (22-30); CHLORIDE 107 mmol/L (98-107); GLUCOSE 82 mg/dL (75-110); POTASSIUM 3.1 mmol/L (3.6-5.0); SODIUM 148.5 mmol/L (137-145); TOTAL PROTEIN 5.6 g/dL (6.3-8.2)
--- NOTE | 2018-12-13 15:39 | ER Document Report ---
ED General - General Chief Complaint: Penile Bleeding Stated Complaint: PENILE BLEEDING Time Seen by Provider: 12/13/18 14:09 Primary Care Provider: MARGARET DUEÑAS MD [Primary Care Provider] - Follow up as needed Notes: Patient is a 88-year-old male with history of BPH that presents to the emergency department for chief complaint of hematuria. Patient was [facility] his [facility], for gross hematuria and inability to urinate, this apparently is been going on for about 24 hours. There is report of possible pus drainage as well. The patient is currently on antibiotics including vancomycin, for bacteremia, he has a PICC line for this. He has had decreased appetite in the last few days as well, and decreased oral intake overall he is a poor historian, most of this history is obtained from the chart and nursing reports. Past Medical History: BPH, hypertension, arthritis Past Surgical History: Reviewed and noncontributory to presentation Social History: Currently lives in a [facility], no current alcohol or tobacco use. Family History: Reviewed and noncontributory for presenting illness Allergies: Reviewed, see documented allergy list. REVIEW OF SYSTEMS: Other than noted above, the 12 point review of systems was reviewed with the patient and were negative, all pertinent findings are included in the HPI. PHYSICAL EXAMINATION: Vital signs reviewed, nursing noted reviewed. GENERAL: Elderly male, appears mildly uncomfortable. HEAD: Atraumatic, normocephalic. EYES: Eyes appear normal, extraocular movements intact, sclera anicteric, conjunctiva are normal. ENT: nares patent, oropharynx clear without exudates. Dry mucous membranes. NECK: Normal range of motion, supple without lymphadenopathy LUNGS: Breath sounds clear to auscultation bilaterally and equal. No wheezes rales or rhonchi. HEART: Regular rate and rhythm without murmurs ABDOMEN: Soft, nontender, normoactive bowel sounds. No rebound, guarding, or rigidity. No masses appreciated. Male genital exam: Patient has gross hematuria at the urethral meatus. Testicles have normal lie, no pus or discharge noted at the meatus today. Otherwise normal male genital exam. EXTREMITIES: Nontender, good range of motion, trace bilateral lower extremity edema. NEUROLOGICAL: No focal neurological deficits. Moves all extremities spontaneously Motor and sensory grossly intact on exam. PSYCH: Normal mood, normal affect. SKIN: cool and dry, normal turgor, no rashes or lesions noted on exposed skin TRAVEL OUTSIDE OF THE [place] IN LAST 30 DAYS: No - Related Data Allergies/Adverse Reactions: No Known Allergies Allergy (Verified 12/13/18 11:38) Past Medical History - Social History Smoking Status: Unknown if Ever Smoked Chew tobacco use (# tins/day): No Drug Abuse: None Family History: Reviewed & Not Pertinent Patient has suicidal ideation: No Patient has homicidal ideation: No Pulmonary Medical History: Reports: Hx COPD Renal/ Medical History: Denies: Hx Peritoneal Dialysis Psychiatric Medical History: Reports: Hx Depression Past Surgical History: Reports: Hx Orthopedic Surgery - L ring finger amputation, ORIF R hip Physical Exam - Vital signs Vitals: Temp Pulse Resp BP Pulse Ox 97.8 F 89 16 124/34 L 99 12/13/18 11:41 12/13/18 11:41 12/13/18 11:41 12/13/18 11:41 12/13/18 11:41 Course - Re-evaluation Re-evalutation: Patient seen and examined vital signs reviewed. Laboratory data and imaging were ordered as appropriate for the patient's presenting symptoms and complaint, with consideration of any critical or life threatening conditions that may be associated with their obtained history and exam as noted above. Patient was treated with attempted placing a three-way Chavez catheter, with ideally starting 3-way irrigation, continuous irrigation of the bladder, patient had significant clots, I was able to advance the catheter, where the tip would reach the bladder, and drained gross blood, however I could not advance the balloon beyond the prostate, 2 attempts were made, without success, and then the procedure was discontinued at that point. Results were reviewed when available and demonstrated elevated creatinine from baseline, and mild hyperkalemia, is also noted to have very mild anemia, no concern for acute blood loss. The patient was re-evaluated and was stable, I called to transfer the patient as we do not have urology certified personal finance counselor and spoke with Dr. Vazquez who accepted the patient, and will see them to ideally place a catheter. Evaluation was most consistent with urinary obstruction, gross hematuria, NORM. Results were discussed with the patient at this point after careful consideration I feel that that patient should be transferred to [facility] due to need for urology. This was discussed with the patient that it is in the best interest for their care to be transferred, the risks and benefits of transfer were discussed, including but not limited to clinical deterioration during transport, respiratory distress, and potential for traumatic injuries. Patient agreed with this plan of care. *Note is created using voice recognition software and may contain spelling, syntax or grammatical errors. Laboratory 12/13/18 12/13/18 12/13/18 14:50 14:50 14:50 WBC 6.2 RBC 5.13 Hgb 12.9 L Hct 40.0 MCV 78 L MCH 25.1 L MCHC 32.1 RDW 18.4 H Plt Count 109 L Seg Neutrophils % 77.8 Lymphocytes % 11.4 L Monocytes % 8.0 Eosinophils % 2.1 Basophils % 0.7 Absolute Neutrophils 4.8 Absolute Lymphocytes 0.7 Absolute Monocytes 0.5 Absolute Eosinophils 0.1 Absolute Basophils 0.0 PT 14.5 INR 1.07 VBG pH VBG pCO2 VBG HCO3 VBG Base Excess Sodium 148.5 H Potassium 3.1 L Chloride 107 Carbon Dioxide 33 H Anion Gap 9 BUN 20 Creatinine 1.86 H Est GFR ( Amer) 42 L Est GFR (Non-Af Amer) 34 L Glucose 82 Calcium 8.9 Total Bilirubin 0.6 Direct Bilirubin 0.4 Neonat Total Bilirubin Not Reportable Neonat Direct Bilirubin Not Reportable Neonat Indirect Bili Not Reportable AST 21 ALT 21 Alkaline Phosphatase 90 Total Protein 5.6 L Albumin 2.9 L 12/13/18 14:50 WBC RBC Hgb Hct MCV MCH MCHC RDW Plt Count Seg Neutrophils % Lymphocytes % Monocytes % Eosinophils % Basophils % Absolute Neutrophils Absolute Lymphocytes Absolute Monocytes Absolute Eosinophils Absolute Basophils PT INR VBG pH Cancelled VBG pCO2 Cancelled VBG HCO3 Cancelled VBG Base Excess Cancelled Sodium Potassium Chloride Carbon Dioxide Anion Gap BUN Creatinine Est GFR ( Amer) Est GFR (Non-Af Amer) Glucose Calcium Total Bilirubin Direct Bilirubin Neonat Total Bilirubin Neonat Direct Bilirubin Neonat Indirect Bili AST ALT Alkaline Phosphatase Total Protein Albumin 12/13/18 20:00 Patient was seen prior to transfer, stable for transfer at this time. - Vital Signs Vital signs: Temp Pulse Resp BP Pulse Ox 97.8 F 89 24 H 138/54 H 99 12/13/18 11:41 12/13/18 11:41 12/13/18 21:00 12/13/18 20:01 12/13/18 11:41 - Laboratory Result Diagrams: 05/01/19 14:50 12/13/18 14:50 Laboratory results interpreted by me: 12/13/18 12/13/18 14:50 14:50 Hgb 12.9 L MCV 78 L MCH 25.1 L RDW 18.4 H Plt Count 109 L Lymphocytes % 11.4 L Sodium 148.5 H Potassium 3.1 L Carbon Dioxide 33 H Creatinine 1.86 H Est GFR ( Amer) 42 L Est GFR (Non-Af Amer) 34 L Total Protein 5.6 L Albumin 2.9 L - EKG Interpretation by Me Additional EKG results interpreted by me: EKG demonstrates sinus rhythm with a ventricular rate of 89 bpm, normal axis, QTC 497 ms, no ST elevation, this is compared with prior EKG from 11/27/2017, without significant change. Discharge - Discharge Clinical Impression: Urinary obstruction, Hematuria, NORM (acute kidney injury) Condition: Stable Disposition: [facility] Referrals: MARGARET DUEÑAS MD [Primary Care Provider] - Follow up as needed
[2018-12-13] MEDS ORDERED: ACETAMINOPHEN 325 MG TABLET PO ONE (18:28)
[2018-12-13 21:08] VITALS: BP 138/54
--- NOTE | 2018-12-13 22:58 | EKG REPORT ---
SEVERITY:- BORDERLINE ECG - SINUS RHYTHM VENTRICULAR PREMATURE COMPLEX BORDERLINE T WAVE ABNORMALITIES BORDERLINE PROLONGED QT INTERVAL : Confirmed by: Cielo Mukherjee 13-Dec-2018 22:57:41
== END 2018-12-13 21:47 | disposition short-term general hospital (02) ==
LOC: ER 11:30
DX: N13.9 Obstructive and reflux uropathy, unspecified (principal); N17.9 Acute kidney failure, unspecified; R31.9 Hematuria, unspecified; R33.9 Retention of urine, unspecified; R63.0 Anorexia; I10 Essential (primary) hypertension; J44.9 Chronic obstructive pulmonary disease, unspecified
CPT/HCPCS: 93005; 99284; 51702; 36415; 87040; 85025; 85610; 80053; 93010; C1758 ×3; A9270 ×2; J3490